=== PATIENT | female | born 1965 | race Caucasian/White ===

== ENCOUNTER → 2017-09-02 13:49 | Outpatient (CLI) | payer OTHER, SELFPAY ==
--- NOTE | 2017-09-02 13:52 | ECHOD_ITS ---
Version 2 Reason For Study: SOB Procedure This was a 2D Doppler, Color Flow transthoracic echocardiogram. Exam performed in department. Left Ventricle Normal LV size. Left ventricular systolic function is normal. The estimated ejection fraction is 55 %. No regional wall motion abnormalities noted. Right Ventricle Normal right ventricle. Normal systolic function. Atria Normal left atrium. Mobile mass of the left atrium. Mass measuring 0.4cm by 0.6cm. Normal right atrium. Mitral Valve Normal mitral valve. Mild (1+) eccentric mitral valve insufficiency. Pulmonic Valve Normal pulmonic valve. Great Vessels Normal aortic root. The pulmonary artery is normal size. Normal inferior vena cava. Pericardium/Pleural No pericardial effusion. MMode/2D Measurements & Calculations LVIDd: 3.6 cm IVSd: 0.98 cm Ao root diam: 2.8 cm LVIDs: 2.4 cm LVPWd: 1.1 cm LA dimension: 2.9 cm FS: 35.3 % LAV(MOD-sp4): 43.4 ml LA A4 area: 17.4 cm2 RA A4 area: 10.7 cm2 Doppler Measurements & Calculations MV E max dami: 91.3 cm/sec Ao V2 max: 180.0 cm/sec LV V1 max: 115.3 cm/sec MV A max dami: 52.8 cm/sec Ao max P.0 mmHg LV V1 max P.3 mmHg MV E/A: 1.7 TR max dami: 228.4 cm/sec TR max P.9 mmHg Interpretation Summary Normal LV size. Left ventricular systolic function is normal. The estimated ejection fraction is 55 %. Mobile mass in the left atrium. Mass measuring 0.4cm by 0.6cm Cannot exclude Libman Sacks lesion. Recommend [facility]I Ordering Physician: NIKKY EDWARDS Referring Physician: NIKKY EDWARDS Performed By: Bianka Garcia, DAE, RVT
--- NOTE | 2017-09-02 13:53 | RAD_ITS ---
STUDY: X-RAY CHEST REASON FOR EXAM: Female, 52 years old. Shortness of breath/dyspnea. TECHNIQUE: PA and lateral views of the chest. COMPARISON: None. FINDINGS: The lungs are clear and expanded. There is no demonstrated pleural abnormality. Normal size heart. Normal mediastinum and fan. Normal visualized pulmonary arteries. There is atherosclerotic calcification of the aortic arch with tortuosity. There are diffuse degenerative changes of the visualized thoracic spine. Normal visualized ribs, clavicles, and shoulders. There is no demonstrated abnormality of the visualized soft tissue structures of the upper abdomen. RAD/Chest PA and Lateral IMPRESSION: No acute abnormality is seen. Electronically Signed: Davin Prabhakar MD at 15:57 EST Tel [phone], Service support ,
== END ==
PROVIDERS: Family Provider Internal Medicine; PCP Internal Medicine; Visit Provider Internal Medicine Rheumatology
DX: R06.02 Shortness of breath (principal); M35.1 Other overlap syndromes
CPT/HCPCS: 71046; 93306

== ENCOUNTER → 2021-03-07 07:08 | Outpatient (CLI) | payer OTHER, SELFPAY ==
[2021-02-20 14:29] VITALS: BMI 33.7
--- NOTE | 2021-03-07 07:10 | ECHOCS_ITS ---
Reason For Study: DYSPNEA/SOB Procedure This was a 2D Doppler, Color Flow transthoracic echocardiogram. The study was technically difficult. Due to body habitus. Contrast injection was performed. Exam performed in department. Left Ventricle Normal LV size. Left ventricular systolic function is normal. The estimated ejection fraction is 65 %. No evidence for diastolic dysfunction. No regional wall motion abnormalities noted. Right Ventricle Normal RV size. Normal systolic function. Atria Normal left atrium. Normal right atrium. No doppler evidence for ASD. Mitral Valve There is no mitral annular calcification. Normal mitral valve. Mild (1+) mitral valve insufficiency. Tricuspid Valve Normal tricuspid valve. Trivial tricuspid valve insufficiency. Right ventricular systolic pressure estimated to be 18 mmHg. Aortic Valve Trisinus/trileaflet aortic valve. Mild focal aortic valve calcification. Trivial aortic valve insufficiency. Pulmonic Valve The pulmonic valve is not well visualized. Trivial pulmonic valve insufficiency. Great Vessels Normal sized aortic root. Pericardium/Pleural No pericardial effusion. Medication Diluted definity 3.0ml given slow IV push to enhance endocardial definition. MMode/2D Measurements & Calculations LVIDd: 4.2 cm IVSd: 0.90 cm Ao root diam: 3.2 cm LVIDs: 2.3 cm LVPWd: 1.1 cm RVDd: 2.8 cm FS: 45.9 % LAV(MOD-bp): 57.5 ml LVAd ap4: 23.9 cm2 LVAd ap2: 28.7 cm2 LAV(MOD-bp) Indexed: 28.4 ml/m2 LVLd ap4: 7.7 cm LVLd ap2: 8.4 cm LAV(MOD-sp2): 59.6 ml EDV(MOD-sp4): 62.5 ml EDV(MOD-sp2): 85.9 ml LAV(MOD-sp4): 53.3 ml EDV(sp4-el): 63.3 ml EDV(sp2-el): 83.6 ml LVAs ap4: 9.0 cm2 LVAs ap2: 14.5 cm2 LVLs ap4: 5.4 cm LVLs ap2: 7.0 cm ESV(MOD-sp4): 12.8 ml ESV(MOD-sp2): 26.6 ml ESV(sp4-el): 12.8 ml ESV(sp2-el): 25.7 ml EF(MOD-sp4): 79.5 % EF(MOD-sp2): 69.0 % EF(sp4-el): 79.7 % SV(MOD-sp4): 49.7 ml SV(MOD-sp2): 59.3 ml SV(sp4-el): 50.4 ml LA A4 area: 19.3 cm2 LA dimension(2D): 3.1 cm RA A4 area: 15.9 cm2 Time Measurements MV dec time: 0.20 sec Doppler Measurements & Calculations MV E max josé: 100.6 cm/sec Lat Peak E' José: 10.2 cm/sec Med Peak E' José: 11.6 cm/sec MV A max josé: 62.6 cm/sec E/E' lat: 9.9 E/E' med: 8.7 MV E/A: 1.6 Ao V2 max: 223.8 cm/sec AI max josé: 454.2 cm/sec LV V1 max: 114.5 cm/sec Ao max P.0 mmHg AI max P.5 mmHg LV V1 max P.3 mmHg Ao V2 mean: 159.7 cm/sec LV V1 mean P.3 mmHg Ao mean P.0 mmHg AI dec slope: 245.4 cm/sec2 LV V1 mean: 88.0 cm/sec Ao V2 VTI: 48.3 cm AI P1/2t: 542.1 msec LV V1 VTI: 27.2 cm PA V2 max: 85.4 cm/sec TR max josé: 192.9 cm/sec TR max P.9 mmHg ECHO/Echo Complete W/ Contrast Interpretation Summary The study was technically difficult. Contrast injection was performed. Left ventricular systolic function is normal. The estimated ejection fraction is 65 %. Mild (1+) mitral valve insufficiency. Trivial tricuspid valve insufficiency. Mild focal aortic valve calcification. Trivial aortic valve insufficiency. Trivial pulmonic valve insufficiency. Right ventricular systolic pressure estimated to be 18 mmHg. No evidence for diastolic dysfunction. Ordering Physician: Marv Jansen Referring Physician: Mary Cho Performed By: Annita Dutta, RDCS, RVT
--- NOTE | 2021-03-07 09:22 | STRESSREP_ITS ---
Stress Test Report Date: 03-07-2021 Procedure: Exercise tolerance test/imaging study Indications: Shortness of breath/dyspnea on exertion Consent: Per the patient Procedure: The patient exercised on a Chad protocol for 9 minutes completing Stage III achieving a peak heart rate of 166 bpm (100% predicted maximal heart rate) with a peak blood pressure 164/88 mmHg and a peak MET capacity of 10 METs. The baseline ECG demonstrated sinus rhythm. The peak exercise ECG demonstrated no obvious ECG changes. There were no cardiac dysrhythmias pretest, during exercise, or recovery. The functional capacity was considered good. There was no complaint of chest discomfort during exercise or recovery. The examination was discontinued secondary to dyspnea. Impression: 1. Technically adequate (percent predicted maximal heart rate greater than 85%) exercise tolerance test 2. Peak exercise ECG with no obvious ECG change 3. There were no cardiac dysrhythmias pretest, during exercise, or recovery 4. Nuclear images pending Myocardial perfusion imaging study: Technique: The patient was injected with 14.7 mCi of technetium 99m Cardiolite and subseque ntly rest SPECT Cardiolite nuclear imaging was obtained in the horizontal long, vertical long, and short axis views. The patient exercised on a Chad protocol for 9 minutes completing Stage III achieving a peak heart rate of 166 bpm (100% predicted maximal heart rate) with a peak blood pressure 164/88 mmHg and a peak MET capacity of 10 METs. The patient was injected with 44.4 mCi of technetium 99m Cardiolite and subsequently stress SPECT Cardiolite nuclear imaging was obtained in the horizontal long, vertical long, and short axis views. A gated Cardiolite study at peak stress was obtained. Interpretation: Rest and stress SPECT Cardiolite nuclear imaging status post realignment, normalization, and attenuation correction, demonstrates the appearance of relative uniform tracer uptake and myocardial perfusion appearing within normal limits. There is end systolic thickening and brightening. The gated Cardiolite study demonstrates myocardial thickening and inward wall motion. The reported LVEF is 76%. Impression: 1. Rest and stress SPECT Cardiolite nuclear imaging demonstrate relative uniform tracer uptake and myocardial perfusion appearing within normal limits. 2. The gated Cardiolite study reports an LVEF of 76%. This note was generated with [employer] software. It may contain incorrect words, spelling, and punctuation that were not noted in checking the note before signing.
== END ==
PROVIDERS: PCP Internal Medicine; Referring Provider Internal Medicine Cardiovascular Disease; Visit Provider Internal Medicine Cardiovascular Disease
DX: R06.02 Shortness of breath (principal); R01.1 Cardiac murmur, unspecified; R00.2 Palpitations; I10 Essential (primary) hypertension
CPT/HCPCS: 78452; 93017; 93306; A9500; Q9957; A4216; C8929; J3490

== ENCOUNTER → 2023-10-12 | Outpatient (CLI) | payer OTHER, SELFPAY ==
--- NOTE | 2023-10-12 16:30 | US_ITS ---
STUDY: RENAL ULTRASOUND - COMPLETE REASON FOR EXAM: Female, 58 years old. PROTEINURIA TECHNIQUE: Ultrasound evaluation of the kidneys was performed with real-time and static tripp-scale imaging. COMPARISON: None. FINDINGS: RIGHT KIDNEY: Normal location of the right kidney, which is normal in size. The right kidney measures 9.0 cm. There is a normal cortex of the right kidney. The renal cortex measures 1.5 cm. There is no right renal mass or cyst. There are no right renal calculi. There is no right hydronephrosis. DISTAL RIGHT URETER: There is non-visualization of the distal right ureter. There is no demonstrated right ureterovesical junction calculus. There is a visualized right ureteral jet. LEFT KIDNEY: Normal location of the left kidney, which is normal in size. The left kidney measures 10.3 cm. There is a normal cortex of the left kidney. The renal cortex measures 2.1 cm. There is no left renal mass or cyst. There are no left renal calculi. There is no left hydronephrosis. DISTAL LEFT URETER: There is non-visualization of the distal left ureter. There is no demonstrated left ureterovesical junction calculus. There is a visualized left ureteral jet. BLADDER: The distended urinary bladder has a volume of 30 ml. The empty urinary bladder has a volume of 4 ml. There is a normal wall thickness of the distended urinary bladder. There is no demonstrated mass within the urinary bladder. There are no demonstrated bladder calculi. US/Kidney and Bladder IMPRESSION: Normal ultrasound of the kidneys and urinary bladder. Electronically Signed: Ata Martinez MD at 23:55 EDT ,
--- OUTSIDE RECORDS SUMMARY | 2023-10-13 02:59 | XMS RPT_ITS | CCD ---
Author Name Unknown Address [address] [place] [address] Organization [facility] Care Team Providers Care Elder Assistant Name Role Phone Rogelio Thomas Unavailable ElysiaitAlexandre Unavailable Marilee Euceda Unavailable Unavailable Marilee Euceda Unavailable Unavailable Elliott Goins Unavailable Unavailable Elliott Goins Unavailable Unavailable Elliott Goins Unavailable Unavailable PROVIDER, UNKNOWN Unavailable Unavailable No, PCP Unavailable Unavailable Rogelio Thomas Primary Care Provider Alexandre Miles Unavailable Rogelio Thomas MD Primary Care Provider Alexandre Miles MD Unavailable Rogelio Thomas MD Primary Care Provider Alexandre Miles MD Unavailable Rogelio Thomas MD Primary Care Provider Waldo JOYNER, Martha Unavailable Susan Almaguer Unavailable Alexandre Miles MD Unavailable Rogelio Thomas MD Primary Care Provider Alexandre Miles MD Unavailable Rogelio Thomas MD Primary Care Provider Waldo JOYNER, Martha Unavailable Susan Almaguer Unavailable Richard JOYNER, Lisette Lee Unavailable Rogelio Thomas MD D Primary Care Provider Alexandre Miles MD Unavailable [phone] Richard JOYNER, Lisette Lee Unavailable Rogelio Thomas MD Primary Care Provider Waldo JOYNER, Martha Unavailable Susan Almaguer Unavailable Waldo JOYNER, Martha Unavailable Tripp BOYD, Susan John Unavailable Rebeca Cifuentes MD, Jack Jennifer Primary Care Provider [phone] [place] Attending Unavailable REBECA CIFUENTES, JACK Primary Care Unavailable Richard JOYNER, Lisette Lee Unavailable SYSTEM, PROVIDER NOT IN Referring Unavaila ble SYSTEM, PROVIDER NOT IN Attending Unavaila ble TALAMPAS, ROGELIO D Primary Care Unavailable SYSTEM, PROVIDER NOT IN Referring Unavaila ble TALAMPAS, ROGELIO D Primary Care Unavailable SYSTEM, PROVIDER NOT IN Attending Unavaila ble TALAMPAS, ROGELIO D Primary Care Unavailable SYSTEM, PROVIDER NOT IN Attending Unavaila ble SYSTEM, PROVIDER NOT IN Referring Unavaila ble SYSTEM, PROVIDER NOT IN Attending Unavaila ble TALAMPAS, ROGELIO D Primary Care Unavailable SYSTEM, PROVIDER NOT IN Referring Unavaila ble LUIS, JAMIR WHITNEY Attending Unavailabl e TALAMPAS, ROGELIO D Primary Care Unavailable ISIS NEVAREZ Attending Unavailable LISETTE RAMOS Admitting Unav ailable LISETTE RAMOS Referring Unav ailable TALAMPAS, ROGELIO D Primary Care Unavailable ERWIN LION Attending Unavailab le TALAMPAS, ROGELIO D Primary Care Unavailable JAMIR YING Attending Unavailabl e TALAMPAS, ROGELIO D Primary Care Unavailable GAIL HERBERT Attending Unavailable TALAMPAS, ROGELIO D Primary Care Unavailable TALAMPAS, ROGELIO D Referring Unavailable TALAMPAS, ROGELIO D Admitting Unavailable JAMIR YING Attending Unavailabl e TALAMPAS, ROGELIO D Primary Care Unavailable TALAMPAS, ROGELIO D Primary Care Unavailable LISETTE LANE Referring Unavailable TALAMPAS, ROGELIO D Primary Care Unavailable AVALOS, SHANAE Referring Unavailable TALAMPAS, ROGELIO D Primary Care Unavailable AVALOS, SHANAE Referring Unavailable TALAMPAS, ROGELIO D Primary Care Unavailable AVALOSLAQUITAI Attending Unavailable TALAMPAS, ROGELIO D Primary Care Unavailable LORI MEDINA Referring Unavailable TALAMPAS, ROGELIO D Primary Care Unavailable LORI MEDINA Attending Unavailable LISETTE L[address] Referring Unavailable TALAMPAS, ROGELIO D Primary Care Unavailable BROWNLISETTE Referring Unavailable TALAMPAS, ROGELIO D Primary Care Unavailable LISETTE L[address] Attending Unavailable BROWNLISETTE Referring Unavailable TALAMPAS, ROGELIO D Primary Care Unavailable TALAMPAS, ROGELIO D Primary Care Unavailable LISETTE LANE Referring Unavailable IGOE, GAIL FUENTES Referring Unavailable IGOE, GAIL FUENTES Attending Unavailable TALAMPAS, ROGELIO D Primary Care Unavailable TALAMPAS, ROGELIO D Primary Care Unavailable TALAMPAS, ROGELIO D Primary Care Unavailable TALAMPAS, ROGELIO D Primary Care Unavailable ERWIN LION Referring Unavailab le TALAMPAS, ROGELIO D Primary Care Unavailable TALAMPAS, ROGELIO D Primary Care Unavailable TALAMPAS, ROGELIO D Primary Care Unavailable IGOE, GAIL FUENTES Attending Unavailable IGOE, GAIL FUENTES Referring Unavailable TALAMPAS, ROGELIO D Primary Care Unavailable IGOE, GAIL FUENTES Attending Unavailable IGOE, GAIL FUENTES Referring Unavailable IGOE, GAIL FUENTES Attending Unavailable IGOE, GAIL FUENTES Referring Unavailable TALAMPAS, ROGELIO D Primary Care Unavailable IGOE, GAIL FUENTES Attending Unavailable IGOE, GAIL FUENTES Referring Unavailable TALAMPAS, ROGELIO D Primary Care Unavailable IGOE, GAIL FUENTES Attending Unavailable IGOE, GAIL FUENTES Referring Unavailable TALAMPAS, ROGELIO D Primary Care Unavailable Allergies Allergy Classification Reported Allergen(s) Allergy Type Date of Onset Reaction(s) Facility (1 source) Seasonal allergy; Translations: [SEASONAL ALLERGIES] Propensity to adverse reactions (disorder) 8 [facility] Medications Current Medications Medication Drug Class(es) Dates Sig (Normalized) Sig (Original) ascorbic acid 1000 mg oral tablet (20 sources) take 1 tablet by peter th once daily ascorbic acid, vitamin C, (VITAMIN C) 1000 MG tablet Take 1 (one) tablet (1,000 mg total) by mouth daily . 0 Active Completed/Discontinued Medications Medication Drug Class(es) Dates Sig (Normalized) Sig (Original) cholecalciferol 0.025 mg oral tablet (20 sources) Vitamin D Start: 01-26-2017 take 1 tablet by mouth once daily cholecalciferol (VITAMIN D3) 1,000 unit tab tablet Take 1 tablet by mouth once daily. 0 01/26/2017 Active Problems Active Problems Problem Classification Problem Date Documented Date Episodic/Chronic Conditions associated with dizziness or vertigo (2 sources) Dizziness; Translations: [Dizziness and giddiness] Episodic Diseases of white blood cells (20 sources) Leukopenia; Translations: [Decreased white blood cell count, unspecified] Onset: 01-18-2012 07-28-2021 Chronic Disorders of lipid metabolism (1 source) Hypercholesterolemia; Translations: [Pure hypercholesterolemia, unspecified] Chronic Esophageal disorders (20 sources) Gastroesophageal reflux disease; Translations: [Gastro-esophageal reflux disease without esophagitis] Onset: 03-10-2012 03-10-2012 Chronic Heart valve disorders (20 sources) Systolic murmur; Translations: [Cardiac murmur, unspecified] Onset: 12-22-2011 12-22-2011 Episodic Influenza (2 sources) Influenza; Translations: [History of lupus] Onset: 06-18-2017 06-18-2017 Malaise and fatigue (11 sources) Fatigue; Translations: [Other fatigue] Onset: 10-12-2022 Episodic Nonmalignant breast conditions (20 sources) Pain of breast; Translations: [Mastodynia] Onset: 06-18-2017 06-18-2017 Episodic Nutritional deficiencies (20 sources) Vitamin D deficiency; Translations: [Vitamin D deficiency, unspecified] Onset: 06-11-2016 06-11-2016 Chronic Other acquired deformities (1 source) Lumbar spondylolisthesis; Translations: [Spondylolisthesis, lumbar region] 07-08-2023 Episodic Other acquired deformities (2 sources) Spondylolisthesis, lumbar region; Translations: [Spondylolisthesis, lumbar region] Onset: 07-08-2023 Episodic Other and unspecified benign neoplasm (4 sources) Benign neoplasm of pituitary gland; Translations: [Benign neoplasm of pituitary gland] Onset: 12-09-2015 Episodic Other circulatory disease (20 sources) Raynaud's phenomenon; Translations: [Raynaud's syndrome without gangrene] 11-26-2013 Chronic Other circulatory disease (16 sources) Raynaud's disease; Translations: [Raynaud's syndrome without gangrene] Onset: 01-05-2022 01-05-2022 Chronic Other circulatory disease (4 sources) Raynaud's syndrome without gangrene; Translations: [Raynaud's syndrome without gangrene] Onset: 01-05-2022 Chronic Other connective tissue disease (3 sources) Romberg's sign positive; Translations: [Other symptoms and signs involving the nervous system] Episodic Other endocrine disorders (20 sources) Reactive hypoglycemia; Translations: [Other hypoglycemia] Onset: 11-26-2013 11-26-2013 Chronic Other eye disorders (20 sources) Vitreous opacities; Translations: [Other vitreous opacities, unspecified eye] Onset: 05-22-2014 05-22-2014 Chronic Other inflammatory condition of skin (20 sources) Lupus erythematosus; Translations: [Systemic lupus erythematosus, unspecified] Onset: 06-11-2016 06-11-2016 Chronic Other lower respiratory disease (1 source) Snoring; Translations: [Snoring] 11-23-2022 Episodic Other lower respiratory disease (1 source) Shortness of breath; Translations: [SOB (shortness of breath)] Onset: 08-30-2023 Episodic Other non-traumatic joint disorders (1 source) Pain in right knee; Translations: [Pain in joint, lower leg] Episodic Other non-traumatic joint disorders (1 source) Swollen ankle region; Translations: [Effusion, left ankle] 11-23-2022 Episodic Other nutritional; endocrine; and metabolic disorders (20 sources) Obese class I; Translations: [Obesity, unspecified] Onset: 06-27-2019 06-27-2019 Chronic Other nutritional; endocrine; and metabolic disorders (1 source) Obesity; Translations: [Other obesity due to excess calories] Chronic Other skin disorders (1 source) Dry skin dermatitis; Translations: [Xerosis cutis] Episodic Screening or history of mental health and substance abuse (2 sources) Finding of alcohol in blood; Translations: [Finding of alcohol in blood] Onset: 03-08-2018 Episodic Spondylosis; intervertebral disc disorders; other back problems (10 sources) Arthropathy of lumbar facet joint; Translations: [Spondylosis without myelopathy or radiculopathy, lumbar region] Chronic Systemic lupus erythematosus and connective tissue disorders (20 sources) Other overlap syndromes; Translations: [Systemic lupus erythematosus] Onset: 06-11-2016 07-29-2021 Chronic Unclassified (20 sources) History of immune disorder; Translations: [History of lupus] Onset: 06-18-2017 06-18-2017 Unclassified (2 sources) Consult Onset: 08-26-2023 Past or Other Problems Problem Classification Problem Date Documented Da te Episodic/Chronic Abdominal pain (2 sources) Lower abdominal pain; Translations: [Lower abdominal pain, unspecified] Onset: 12-24-2022 12-24-2022 Episodic Deficiency and other anemia (20 sources) Anemia; Translations: [Anemia, unspecified] Onset: 01-18-2012 06-11-2016 Episodic Esophageal disorders (20 sources) Esophagitis; Translations: [Esophagitis, unspecified] Onset: 03-10-2012 03-10-2012 Episodic Gastrointestinal hemorrhage (19 sources) Rectal hemorrhage; Translations: [Hemorrhage of anus and rectum] Onset: 11-17-2021 Episodic Genitourinary symptoms and ill-defined conditions (20 sources) Dysuria; Translations: [Dysuria] Onset: 12-13-2017 12-13-2017 Episodic Immunizations and screening for infectious disease (11 sources) Anti-nuclear factor positive; Translations: [Other specified abnormal immunological findings in serum] Onset: 11-23-2022 Episodic Neoplasms of unspecified nature or uncertain behavior (20 sources) Neoplasm of pituitary gland; Translations: [Neoplasm of unspecified behavior of endocrine glands and other parts of nervous system] Onset: 05-22-2014 05-22-2014 Episodic Other and unspecified benign neoplasm (20 sources) Pituitary macroadenoma; Translations: [Benign neoplasm of pituitary gland] Onset: 12-09-2015 12-09-2015 Episodic Other and unspecified benign neoplasm (20 sources) Pituitary adenoma; Translations: [Benign neoplasm of pituitary gland] Onset: 07-10-2013 07-28-2021 Episodic Other and unspecified benign neoplasm (17 sources) History of polyp of colon; Translations: [Personal history of colonic polyps] Onset: 11-17-2021 Episodic Other circulatory disease (20 sources) H/O: hypertension; Translations: [Personal history of other diseases of the circulatory system] Onset: 06-18-2017 06-18-2017 Episodic Other connective tissue disease (1 source) Pain in left lower leg; Translations: [Pain of left calf] Onset: 10-28-2022 Episodic Other gastrointestinal disorders (20 sources) Heartburn; Translations: [Heartburn] Onset: 03-10-2012 03-10-2012 Episodic Other lower respiratory disease (2 sources) Snoring; Translations: [Snoring] Onset: 11-23-2022 Episodic Other non-traumatic joint disorders (4 sources) Effusion, left ankle; Translations: [Effusion, left ankle] Onset: 11-23-2022 Episodic Other non-traumatic joint disorders (1 source) Pain in right hip; Translations: [Right hip pain] Onset: 12-17-2022 Episodic Other non-traumatic joint disorders (1 source) Pain in left knee; Translations: [Acute pain of left knee] Onset: 10-28-2022 Episodic Other non-traumatic joint disorders (1 source) Pain in left ankle and joints of left foot; Translations: [Acute left ankle pain] Onset: 10-28-2022 Episodic Other screening for suspected conditions (not mental disorders or infectious disease) (9 sources) Patient encounter status; Translations: [Encounter for screening for diabetes mellitus] Onset: 11-23-2022 Episodic Residual codes; unclassified (1 source) Localized edema; Translations: [Lower extremity edema] Onset: 10-28-2022 Episodic Spondylosis; intervertebral disc disorders; other back problems (9 sources) Chronic low back pain; Translations: [Low back pain] Onset: 12-17-2022 Episodic Unclassified (3 sources) H/O: Disorder; Translations: [History of lupus] Onset: 06-18-2017 06-18-2017 Episodic Results Test Name Value Interpretation Reference Range Facil ity Vital Signs Date Time Vital Sign Value Performing Clinician Facility 10-04-2023 15:13-0500 Body weight 96.[address] MD Work Phone: [facility] 10-04-2023 15:13-0500 Diastolic blood pressure 80 mm[Hg] Lisette Lane MD Work Phone: [facility] 10-04-2023 15:13-0500 Heart rate 78 /min Lisette Lane MD Work Phone: [facility] 10-04-2023 15:13-0500 Respiratory rate 16 /min Lisette Lane MD Work Phone: [facility] 10-04-2023 15:13-0500 SaO2% (BldA) [Mass fraction] 99 % Lisette Lane MD Work Phone: [facility] 10-04-2023 15:13-0500 Systolic blood pressure 136 mm[Hg] Lisette Lane MD Work Phone: [facility] 08-26-2023 15:15-0500 Body height 165.1 cm Isis Nevarez MD Work Phone: [facility] 08-26-2023 15:15-0500 Body mass index (BMI) [Ratio] 35.61 kg/m2 Isis Nevarez MD Work Phone: [facility] 08-26-2023 15:15-0500 Body weight 97.07 kg Isis Nevarez MD Work Phone: [facility] 08-26-2023 15:15-0500 Diastolic blood pressure 87 mm[Hg] Isis Nevarez MD Work Phone: [facility] 08-26-2023 15:15-0500 Heart rate 87 /min Isis Nevarez MD Work Phone: [facility] 08-26-2023 15:15-0500 Respiratory rate 14 /min Isis Nevarez MD Work Phone: [facility] 08-26-2023 15:15-0500 SaO2% (BldA) [Mass fraction] 99 % Isis Nevarez MD Work Phone: [facility] 08-26-2023 15:15-0500 Systolic blood pressure 142 mm[Hg] Isis Nevarez MD Work Phone: [facility] 08-12-2023 14:35-0500 Body mass index (BMI) [Ratio] 34.15 kg/m2 Jamir Ying DO Work Phone: [facility] 08-12-2023 14:35-0500 Body weight 95.98 kg Jamir Falls DO Work Phone: [facility] 08-12-2023 14:35-0500 Diastolic blood pressure 89 mm[Hg] Jamir Falls DO Work Phone: [facility] 08-12-2023 14:35-0500 Heart rate 91 /min Jamir Falls DO Work Phone: [facility] 08-12-2023 14:35-0500 Systolic blood pressure 146 mm[Hg] Jamir Falls DO Work Phone: [facility] 07-08-2023 14:56-0500 Body weight 97.07 kg Louis Okeefe MD Work Phone: [facility] 07-08-2023 14:56-0500 Diastolic blood pressure 84 mm[Hg] Luois Okeefe MD Work Phone: [facility] 07-08-2023 14:56-0500 Heart rate 81 /min Louis Okeefe MD Work Phone: [facility] 07-08-2023 14:56-0500 Systolic blood pressure 125 mm[Hg] Louis Okeefe MD Work Phone: [facility] 11-23-2022 13:54-0400 Body mass index (BMI) [Ratio] 33.89 kg/m2 Gail Herbert MD Work Phone: [facility] 11-23-2022 13:54-0400 Body weight 95.25 kg Gail Herbert MD Work Phone: [facility] 11-23-2022 13:54-0400 Diastolic blood pressure 89 mm[Hg] Gail Herbert MD Work Phone: [facility] 11-23-2022 13:54-0400 Heart rate 87 /min Gail Herbert MD Work Phone: [facility] 11-23-2022 13:54-0400 Systolic blood pressure 142 mm[Hg] Gail Herbert MD Work Phone: [facility] 10-12-2022 15:01-0400 Diastolic blood pressure 85 mm[Hg] Erwin Lion LOOM SETTER Work Phone: [facility] 10-12-2022 15:01-0400 Heart rate 79 /min rEwin Lion LOOM SETTER Work Phone: [facility] 10-12-2022 15:01-0400 Systolic blood pressure 134 mm[Hg] Erwin Lion LOOM SETTER Work Phone: [facility] 10-12-2022 14:58-0400 Body mass index (BMI) [Ratio] 34.46 kg/m2 Erwin Lion LOOM SETTER Work Phone: [facility] 10-12-2022 14:58-0400 Body weight 96.84 kg Erwin Lion LOOM SETTER Work Phone: [facility] 08-24-2022 16:10-0500 Body temperature 96.4 [degF] Rogelio Thomas MD Work Phone: [facility] 08-24-2022 16:10-0500 Body weight 92.53 kg Rogelio Thomas MD Work Phone: [facility] 08-24-2022 16:10-0500 Diastolic blood pressure 86 mm[Hg] Rogelio Thomas MD Work Phone: [facility] 08-24-2022 16:10-0500 Heart rate 78 /min Rogelio Thomas MD Work Phone: [facility] 08-24-2022 16:10-0500 Respiratory rate 18 /min Rogelio Thomas MD Work Phone: [facility] 08-24-2022 16:10-0500 SaO2% (BldA) [Mass fraction] 100 % Rogelio Thomas MD Work Phone: [facility] 08-24-2022 16:10-0500 Systolic blood pressure 136 mm[Hg] Rogelio Thomas MD Work Phone: [facility] 06-30-2022 09:17-0500 Body mass index (BMI) [Ratio] 33.98 kg/m2 Isis Nevarez MD Work Phone: [facility] 06-30-2022 09:17-0500 Body weight 95.48 kg Isis Nevarez MD Work Phone: [facility] 06-30-2022 09:17-0500 Diastolic blood pressure 82 mm[Hg] Isis Nevarez MD Work Phone: [facility] 06-30-2022 09:17-0500 Heart rate 75 /min Isis Nevarez MD Work Phone: [facility] 06-30-2022 09:17-0500 Respiratory rate 16 /min Isis Nevarez MD Work Phone: [facility] 06-30-2022 09:17-0500 SaO2% (BldA) [Mass fraction] 95 % Isis Nevarez MD Work Phone: [facility] 06-30-2022 09:17-0500 Systolic blood pressure 126 mm[Hg] Isis Nevarez MD Work Phone: [facility] 04-09-2022 09:56-0400 Body height 167.6 cm Erwin Lion LOOM SETTER Work Phone: [facility] 04-09-2022 09:56-0400 Body mass index (BMI) [Ratio] 32.38 kg/m2 Erwin Lion LOOM SETTER Work Phone: [facility] 04-09-2022 09:56-0400 Body weight 90.99 kg Erwin Lion LOOM SETTER Work Phone: [facility] 04-09-2022 09:56-0400 Diastolic blood pressure 86 mm[Hg] Erwin Lion LOOM SETTER Work Phone: [facility] 04-09-2022 09:56-0400 Heart rate 72 /min Erwin Lion LOOM SETTER Work Phone: [facility] 04-09-2022 09:56-0400 Systolic blood pressure 135 mm[Hg] Erwin Lion LOOM SETTER Work Phone: [facility] 01-22-2022 14:07-0400 Diastolic blood pressure 86 mm[Hg] Susan Almaguer PA-C Work Phone: [facility] 01-22-2022 14:07-0400 Heart rate 77 /min Susan Tripp PA-C Work Phone: [facility] 01-22-2022 14:07-0400 SaO2% (BldA) [Mass fraction] 98 % Susan Tripp PA-C Work Phone: [facility] 01-22-2022 14:07-0400 Systolic blood pressure 124 mm[Hg] Susan Tripp PA-C Work Phone: [facility] 01-07-2022 16:23-0400 Body weight 87.54 kg Suzy Older HEAD OF RESEARCH [employer] INSIGHTS.LOOM SETTER Work Phone: [facility] 01-07-2022 16:23-0400 Diastolic blood pressure 84 mm[Hg] Suzy Older HEAD OF RESEARCH & INSIGHTS.LOOM SETTER Work Phone: [facility] 01-07-2022 16:23-0400 Heart rate 84 /min Suzy Older HEAD OF RESEARCH & INSIGHTS.LOOM SETTER Work Phone: [facility] 01-07-2022 16:23-0400 Respiratory rate 16 /min Suzy Older HEAD OF RESEARCH [employer] INSIGHTS.LOOM SETTER Work Phone: [facility] 01-07-2022 16:23-0400 Systolic blood pressure 114 mm[Hg] Suzy Older HEAD OF RESEARCH & INSIGHTS.LOOM SETTER Work Phone: [facility] 11-17-2021 13:08-0400 Body height 167.6 cm Isis Nevarez MD Work Phone: [facility] 11-17-2021 13:08-0400 Body mass index (BMI) [Ratio] 31.67 kg/m2 Isis Nevarez MD Work Phone: [facility] 11-17-2021 13:08-0400 Body weight 89 kg Isis Nevarez MD Work Phone: [facility] 11-17-2021 13:08-0400 Diastolic blood pressure 88 mm[Hg] Isis Nevarez MD Work Phone: [facility] 11-17-2021 13:08-0400 Heart rate 78 /min Isis Nevarez MD Work Phone: [facility] 11-17-2021 13:08-0400 SaO2% (BldA) [Mass fraction] 99 % Isis Nevarez MD Work Phone: [facility] 11-17-2021 13:08-0400 Systolic blood pressure 138 mm[Hg] Isis Nevarez MD Work Phone: [facility] 04-03-2021 13:57-0400 Diastolic blood pressure 81 mm[Hg] Susan Villarrealler PA-C Work Phone: [facility] 04-03-2021 13:57-0400 Heart rate 91 /min Susan Almaguer PA-C Work Phone: [facility] 04-03-2021 13:57-0400 Respiratory rate 16 /min Susan Almaguer PA-C Work Phone: [facility] 04-03-2021 13:57-0400 SaO2% (BldA) [Mass fraction] 99 % Susan Almaguer PA-C Work Phone: [facility] 04-03-2021 13:57-0400 Systolic blood pressure 122 mm[Hg] Susan Almaguer PA-C Work Phone: [facility] 01-03-2021 14:03-0400 Body height 167.6 cm Susan Almaguer PA-C Work Phone: [facility] 01-03-2021 14:03-0400 Body mass index (BMI) [Ratio] 33.09 kg/m2 Susan Almaguer PA-C Work Phone: [facility] 01-03-2021 14:03-0400 Body weight 92.99 kg Susan Almaguer PA-C Work Phone: [facility] 01-03-2021 14:03-0400 Diastolic blood pressure 88 mm[Hg] Susan Almaguer PA-C Work Phone: [facility] 01-03-2021 14:03-0400 Heart rate 83 /min Susan Almaguer PA-C Work Phone: [facility] 01-03-2021 14:03-0400 Respiratory rate 16 /min Susan Almaguer PA-C Work Phone: [facility] 01-03-2021 14:03-0400 SaO2% (BldA) [Mass fraction] 98 % Susan Almaguer PA-C Work Phone: [facility] 01-03-2021 14:03-0400 Systolic blood pressure 131 mm[Hg] Susan Almaguer PA-C Work Phone: [facility] 11-18-2020 11:21-0400 Diastolic blood pressure 83 mm[Hg] Susan Almaguer PA-C Work Phone: [facility] 11-18-2020 11:21-0400 Heart rate 100 /min Susan Almaguer PA-C Work Phone: [facility] 11-18-2020 11:21-0400 Respiratory rate 16 /min Susan Almaguer PA-C Work Phone: [facility] 11-18-2020 11:21-0400 SaO2% (BldA) [Mass fraction] 93 % Susan Almaguer PA-C Work Phone: [facility] 11-18-2020 11:21-0400 Systolic blood pressure 138 mm[Hg] Susan Almaguer PA-C Work Phone: [facility] 12-13-2017 15:59-0400 BMI (Body Mass Index) 32.44 kg/m2 Marilee Euceda [facility] 12-13-2017 15:59-0400 BP Diastolic 80 mm[Hg] Marilee Euceda [facility] 12-13-2017 15:59-0400 BP Systolic 140 mm[Hg] Marilee Euceda [facility] 12-13-2017 15:59-0400 Height 167.6 cm Marilee Euceda [facility] 12-13-2017 15:59-0400 Pulse (Heart Rate) 76 /min Marilee Euceda [facility] 12-13-2017 15:59-0400 Weight 91.17 kg Marilee Euceda [facility] 06-18-2017 15:52-0500 BMI (Body Mass Index) 31.46 kg/m2 Jesus Mayer [facility] Work Phone: 06-18-2017 15:52-0500 Body Temperature 98.71 [degF] Jesus Mayer [facility] Work Phone: 06-18-2017 15:52-0500 BP Diastolic 95 mm[Hg] Jesus Mayer [facility] Work Phone: 06-18-2017 15:52-0500 BP Systolic 140 mm[Hg] Jesus Mayer [facility] Work Phone: 06-18-2017 15:52-0500 Pulse (Heart Rate) 74 /min Jesus Mayer [facility] Work Phone: 06-18-2017 15:52-0500 Pulse Oximetry 96 % Jesus Mayer [facility] Work Phone: 06-18-2017 15:52-0500 Respiratory Rate 14 /min Jesus Mayer [facility] Work Phone: 06-18-2017 15:52-0500 Weight 88.41 kg Jesus Mayer [facility] Work Phone: 06-14-2017 15:58-0500 BMI (Body Mass Index) 31.44 kg/m2 Marilee Euceda [facility] Work Phone: 06-14-2017 15:58-0500 BP Diastolic 72 mm[Hg] Marilee Euceda [facility] Work Phone: 06-14-2017 15:58-0500 BP Systolic 132 mm[Hg] Marilee Euceda [facility] Work Phone: 06-14-2017 15:58-0500 Pulse (Heart Rate) 80 /min Marilee Euceda [facility] Work Phone: 06-14-2017 15:58-0500 Weight 88.36 kg Marilee Euceda [facility] Work Phone: Encounters Encounter Date Encounter Type Care Provider Facility Start: 10-07-2023 End: 10-11-2023 ambulatory [facility] Start: 10-04-2023 End: 10-05-[address] Facility:[facility] Start: 10-04-2023 End: 10-04-[address] Facility:[facility] Start: 10-04-2023 End: 10-04-2023 Patient [address] Lisette Lane MD Work Phone: Pulmonary Medicine Procedures Date Procedure Procedure Detail Performing Clinician Start: 08-12-2023 Protein total xcpt refractometry urine Jamir Ying DO Work Phone: Start: 12-24-2022 Us abdominal real ti me w/image limited Shanae Avalos HEAD OF RESEARCH & INSIGHTS.[facility]ATHE W[facility]ER Work Phone: Start: 06-17-2022 Mammography Isis Nevarez MD Work Phone: Start: 06-09-2022 Mammography Lisette Ramos MD Work Phone: Start: 06-09-2022 Microscopic observat ion [Identifier] in Cervix by Cyto stain Erwin Lion LOOM SETTER Work Phone: Start: 01-10-2022 Lipid 1996 panel - S fernanda or Plasma Rogelio Thomas MD Work Phone: Start: 01-05-2022 Colonoscopy Rogelio scales MD Work Phone: Start: 01-10-2021 Adult depression scr eening assessment Rogelio Thomas MD Work Phone: Start: 01-03-2021 Magnetic resonance imaging External Transcribed Start: 05-03-2020 Mammography Susan hwang PA-C Work Phone: Start: 05-17-2019 Microscopic observat ion [Identifier] in Cervix by Cyto stain Susan Almaguer PA-C Work Phone: Start: 05-01-2019 Mammography Sobia Royal nadeenleilani Start: 05-14-2014 Colonoscopy Rogelio scales MD Work Phone: Plan of Treatment Date Care Activity Detail Author Start: 06-30-2028 Pap Testing Pap Testing [facility] Start: 06-30-2028 Screening for malignant neoplasm of cervix Pap Testing [facility] Start: 06-09-2027 HPV TESTING HPV TESTING [facility] Start: 06-09-2027 PAP TESTING PAP TESTING [facility] Start: 06-09-2027 Screening for malignant neoplasm of cervix HPV Testing [facility] Start: 01-10-2027 Lipid 1996 panel - Serum or Plasma Lipid Screening [facility] Start: 01-10-2027 Lipid panel Lipid Screening [facility] Start: 01-10-2027 LIPID SCREEN LIPID SCREEN [facility] Start: 01-05-2027 Colonoscopy COLONOSCOPY [facility] Start: 01-05-2027 COLORECTAL CANCER SCREENING COLORECTAL CANCER SCREENING [facility] Start: 01-05-2027 Screening for malignant neoplasm of colon [facility] Start: 10-11-2025 LIPID SCREEN LIPID SCREEN [facility] Start: 10-02-2025 Diabetes Screening Diabetes Screening [facility] Start: 06-09-2025 Screening for malignant neoplasm of cervix Pap Smear [facility] Start: 04-18-2025 DIABETES SCREEN DIABETES SCREEN [facility] Start: 04-18-2025 Diabetes Screening Diabetes Screening [facility] Start: 2025 RSV Immunization aged 60 or older (1 - 1-dose 60+ series) RSV Immunization aged 60 or older (1 - 1-dose 60+ series) [facility] Start: 01-10-2025 DIABETES SCREEN DIABETES SCREEN [facility] Start: 06-30-2024 Mammography Mammogram Screening [facility] Start: 06-30-2024 Screening for malignant neoplasm of breast Mammogram Screening [facility] Start: 05-14-2024 Colonoscopy COLONOSCOPY [facility] Start: 05-14-2024 COLORECTAL CANCER SCREENING COLORECTAL CANCER SCREENING [facility] Start: 11-11-2023 End: 11-11-2023 Patient encounter procedure 11/11/2023 3:30 PM EDT Office Visit [facility] [address] [place] [address] Jamir Ying, [address] [address] [facility] Start: 10-18-2023 End: 10-18-2023 Patient encounter procedure [facility] Start: 10-04-2023 End: 01-03-2024 Extractable nuclear Ab panel - Serum [facility] Work Phone: Payers Date Payer Category Payer Unknown [id number] 2. [id number] 2014 Unknown 2014 Unknown [id number] 1. [id number] 1965 Unknown [id number] 2.16. [id number] 1965 Unknown [id number] 2.16. 840.1.910003.3.579.2.900 1965 Unknown [id number] 2.16. 840.1.889104.3.579.2.900 1965 Unknown [id number] 2.16. 840.1.981901.3.579.2.900 1965 Unknown [id number] 2.16. 840.1.642206.3.579.2.900 1965 Unknown [id number] 2.16. 840.1.219995.3.579.2.900 1965 Unknown [id number] 2.16. 840.1.483621.3.579.2.900 1965 Unknown [id number] 2.16. 840.1.983935.3.579.2.900 1965 Unknown [id number] 2.16. 840.1.147360.3.579.2.903 1965 Unknown [id number] 2.16. 840.1.899793.3.579.2.903 1965 Unknown [id number] 2.16. 840.1.874694.3.579.2. 1965 Unknown [id number] 2.16. 840.1.065872.3.579.2. 1965 Unknown [id number] 2.16. 840.1.033286.3.579.2. 1965 Unknown [id number] 2.16. 840.1.733722.3.579.2. 1965 Unknown [id number] 2.16. 840.1.786797.3.579.2. 1965 Unknown [id number] 2.16. 840.1.235991.3.579.2 1965 Unknown [id number] 2.16. 840.1.297501.3.579.2. 1965 Unknown [id number] 2.16 840.1.817143.3.579.2. 1965 Unknown [id number] 2.16. 840.1.889948.3.579.2. 1965 Unknown [id number] 2.16. 840.1.536535.3.579.2. 1965 Unknown [id number] 2.16. 840.1.649218.3.579.2. 1965 Unknown [id number] 2.16. 840.1.790528.3.579.2. 1965 Unknown [id number] 2.16. 840.1.249626.3.579.2. 1965 Unknown [id number] 2.16. 840.1.792183.3.579.2. 1965 Unknown [id number] 2.16. 840.1.862293.3.579.2.3 Social History Date Type Detail Facility Start: 05-22-2014 End: 12-13-2017 Tobacco smoking status NHIS Never smoker [facility] Work Phone: Start: 1965 Sex Assigned At Not on file [facility] Work Phone: Start: 05-22-2014 End: 06-20-2018 Tobacco use and exposure Never used [facility] Start: 11-18-2020 End: 08-26-2023 Alcohol intake Lifetime non-drinker (finding) [facility] Start: 11-18-2020 History SDOH Alcohol Frequency 1 [facility] Start: 11-07-2021 End: 11-23-2022 Exposure to SARS-CoV-2 (event) Not sure [facility] Start: 01-10-2021 End: 10-04-2023 Alcohol intake Current non-drinker of alcohol (finding) [facility] Start: 01-05-2022 End: 12-17-2022 Cigarette pack-years [facility] Start: 03-09-2022 End: 03-19-2022 Exposure to SARS-CoV-2 (event) Unable to assess [facility] Start: 11-18-2020 End: 12-17-2022 Alcohol Use Disorder Identification Test - Consumption [AUDIT-C] [facility] How often to you hav e a drink containing alcohol? Never [facility] Average Number of Drinks Not on file [facility] Work Phone: Start: 11-17-2021 Gender identity Identifies as female gender (finding) [facility] Start: 11-17-2021 Sexual orientation Heterosexual (finding) [facility] Start: 07-08-2023 Alcohol intake Ex-drinker (finding) [facility] Medical Equipment Procedure Code Equipment Code Equipment Origin al Text Equipment Identifier Dates Check blood suga r daily as needed for reactive hypoglycemic symptoms 251.2 [id number] Start: 06-24-2013 End: 11-18-2020 Clinical Notes 11-18-2020 to 10-04-[address] MD - 10/04/2023 3:15 PM ESTTelephone Encounter - Valentine Paredes RN - 09/23/2023 4:06 PM Isis Christianson MD - 08/26/2023 3:13 PM ESTPatient Instructions Note Date & Type Note Facility 10-04-2023 Note HNO ID: [id number] Author: LISETTE LANE MD Service: ? Author Type: Physician Type: Progress Notes Filed: 10/04/2023 17:27 Note Text: . [facility] Note Patient name: Aminata Cohen PCP: Rogelio Thomas MD Referring Physician: Same Consultation requested by Dr. Thomas for an opinion regarding abnormal antibodies. My final recommendations will be communicated back to the requesting physician by way of shared Medical record or letter to requesting physician via [place] mail. CC: Referral stated shortness of breath but patient denies HPI: Aminata Cohen 58 year old obese female never smoker with PMH significant for Raynaud's, MCTD/SLE, GERD, HTN, migraines, pituitary adenoma being referred for evaluation of abnormal centromere antibody. Patient denies any prior respiratory issues. She specifically denies any shortness of breath, chronic dry cough, wheezing, recurrent infections. She had previous testing performed by rheumatology but has not seen a security specialist. Her pulmonary function tests were normal and updated pulmonary function test today are normal as well. She had a previous CTA of the chest that did not show any evidence of pulmonary fibrosis, and echocardiogram was negative for pulmonary hypertension. She has multiple positive antibodies including centromere, SHIVANI, SSA, RNA polymerase III,and a weak positive anti-OJ. She has mild proteinuria but normal complements. On physical exam she has no evidence of sclerodactyly or skin thickening but she does have mechanics hands. Her oral aperture is normal and I do not appreciate any telangiectasias. She denies any history of dysphagia although she does have GERD controlled with proton pump inhibitor. Only joint pain is bilateral knee pain which improved when she started on Plaquenil. DATA: PFT 08/2023: Review of pulmonary function test shows no obstruction, restriction or diffusion defect Labs: Component Ref Range AND Units 1 mo ago Anti-DNA ds <1:10 Titer <1:10 Component Ref Range AND Units 1 mo ago CRP(Inflammation) <=10.0 mg/L 4.3 Component Ref Range AND Units 10 mo ago SHIVANI Pattern (none) Centromere Abnormal SHIVANI <1:80 >1:320 High Component Ref Range AND Units 10 mo ago Centromere AB, IgG,S <1.0 (Negative) U >8.0 High Component Ref Range AND Units 10 mo ago RNA Polymerase III Ab, IgG, S <20.0 (Negative) U 46.0 High Component Ref Range AND Units 10 mo ago Sed Rate 0 - 30 mm/hr 36 High Component Ref Range AND Units 10 mo ago C3 Complement 73.0 - 183.0 mg/dL 125.2 Component Ref Range AND Units 10 mo ago C4 Complement 16.0 - 47.0 mg/dL 29.8 Anti--OJ Ab Negative Weak Positive Abnormal Imaging / Diagnostic Studies: Brian Cevallos, DO - 01/20/2023 EXAMINATION: CT CHEST HIGH RESOLUTION WITHOUT CONTRAST WITH COMPLETE SCAN HISTORY: ORDERING SYSTEM PROVIDED HISTORY: assess for ILD. patient has h/o MCTD/SLE, ORDERING SYSTEM PROVIDED DIAGNOSIS CODES: M32.9 Lupus (HCC) R76.8 Centromere antibody positive COMPARISON: None. TECHNIQUE: Dose reduction techniques were achieved by using automated exposure control and/or adjustment of mA and/or kV according to patient size and/or use of iterative reconstruction technique. Contiguous 2.5 mm thick axial sections are also viewed in the coronal and sagittal planes. Prone high-resolution studies are acquired in inspiration and expiration utilizing 1.25 mm thick sections. FINDINGS: There is normal size and configuration of the cardiac chambers, with normal size mediastinal great vessels and pulmonary arteries. Some minimal atherosclerotic calcification at the aortic arch noted without significant coronary artery calcifications. There are no signs of enlarged mediastinal or hilar region lymph nodes. The included supraclavicular, axillary lymph nodes, included chest wall soft tissues are satisfactory. The included upper abdominal structures are satisfactory. The thoracic spine and sternal structures are intact. Clear central tracheobronchial tree markings. There are no signs of interlobular septal thickening, or macroscopic fibrosis identified on the studies. There are no airspace opacities or suspicious pulmonary nodules. There does not appear to be evidence of pleural fluid. Visible tracheobronchial tree structures in the lung periphery on the high-resolution views are normal. There are no signs of air trapping or airway collapse on the expiratory views. IMPRESSION: CT scans of the chest show no evidence of interstitial lung disease or other fibrosis. No pleural fluid or pleural thickening identified. No mediastinal mass or adenopathy. There are no signs of air trapping on the expiratory views. Minimal atherosclerotic calcification aortic arch. Echo: Name: AMINATA COHEN Age: 57 years : 1965 Gender: Fe (more content not included)... [facility] 10-04-2023 History of Present illness Narrative Images from the original note were not included. . [facility] Note Patient name: Aminata Cohen PCP: Rogelio Thomas MD Referring Physician: Same Consultation requested by Dr. Thomas for an opinion regarding abnormal antibodies. My final recommendations will be communicated back to the requesting physician by way of shared Medical record or letter to requesting physician via [place] mail. CC: Referral stated shortness of breath but patient denies HPI: Aminata Cohen 58 year old obese female never smoker with PMH significant for Raynaud's, MCTD/SLE, GERD, HTN, migraines, pituitary adenoma being referred for evaluation of abnormal centromere antibody. Patient denies any prior respiratory issues. She specifically denies any shortness of breath, chronic dry cough, wheezing, recurrent infections. She had previous testing performed by rheumatology but has not seen a security specialist. Her pulmonary function tests were normal and updated pulmonary function test today are normal as well. She had a previous CTA of the chest that did not show any evidence of pulmonary fibrosis, and echocardiogram was negative for pulmonary hypertension. She has multiple positive antibodies including centromere, SHIVANI, SSA, RNA polymerase III, and a weak positive anti-OJ. She has mild proteinuria but normal complements. On physical exam she has no evidence of sclerodactyly or skin thickening but she does have mechanics hands. Her oral aperture is normal and I do not appreciate any telangiectasias. She denies any history of dysphagia although she does have GERD controlled with proton pump inhibitor. Only joint pain is bilateral knee pain which improved when she started on Plaquenil. DATA: PFT 08/2023: Review of pulmonary function test shows no obstruction, restriction or diffusion defect Labs: Component Ref Range & Units 1 mo ago Anti-DNA ds <1:10 Titer <1:10 Component Ref Range & Units 1 mo ago CRP(Inflammation) <=10.0 mg/L 4.3 Component Ref Range & Units 10 mo ago SHIVANI Pattern (none) Centromere Abnormal SHIVANI <1:80 >1:320 High Component Ref Range & Units 10 mo ago Centromere AB, IgG,S <1.0 (Negative) U >8.0 High Component Ref Range & Units 10 mo ago RNA Polymerase III Ab, IgG, S <20.0 (Negative) U 46.0 High Component Ref Range & Units 10 mo ago Sed Rate 0 - 30 mm/hr 36 High Component Ref Range & Units 10 mo ago C3 Complement 73.0 - 183.0 mg/dL 125.2 Component Ref Range & Units 10 mo ago C4 Complement 16.0 - 47.0 mg/dL 29.8 Anti--OJ Ab Negative Weak Positive Abnormal Imaging / Diagnostic Studies: Brian Cevallos, DO - 01/20/2023 EXAMINATION: CT CHEST HIGH RESOLUTION WITHOUT CONTRAST WITH COMPLETE SCAN HISTORY: ORDERING SYSTEM PROVIDED HISTORY: assess for ILD. patient has h/o MCTD/SLE, ORDERING SYSTEM PROVIDED DIAGNOSIS CODES: M32.9 Lupus (HCC) R76.8 Centromere antibody positive COMPARISON: None. TECHNIQUE: Dose reduction techniques were achieved by using automated exposure control and/or adjustment of mA and/or kV according to patient size and/or use of iterative reconstruction technique. Contiguous 2.5 mm thick axial sections are also viewed in the coronal and sagittal planes. Prone high-resolution studies are acquired in inspiration and expiration utilizing 1.25 mm thick sections. FINDINGS: There is normal size and configuration of the cardiac chambers, with normal size mediastinal great vessels and pulmonary arteries. Some minimal atherosclerotic calcification at the aortic arch noted without significant coronary artery calcifications. There are no signs of enlarged mediastinal or hilar region lymph nodes. The included supraclavicular, axillary lymph nodes, included chest wall soft tissues are satisfactory. The included upper abdominal structures are satisfactory. The thoracic spine and sternal structures are intact. Clear central tracheobronchial tree markings. There are no signs of interlobular septal thickening, or macroscopic fibrosis identified on the studies. There are no airspace opacities or suspicious pulmonary nodules. There does not appear to be evidence of pleural fluid. Visible tracheobronchial tree structures in the lung periphery on the high-resolution views are normal. There are no signs of air trapping or airway collapse on the expiratory views. IMPRESSION: CT scans of the chest show no evidence of interstitial lung disease or other fibrosis. No pleural fluid or pleural thickening identified. No mediastinal mass or adenopathy. There are no signs of air trapping on the expiratory views. Minimal atherosclerotic calcification aortic arch. Echo: Name: AMINATA COHEN Age: 57 years : 1965 Gender: Female Ht: 168 cm Wt: 95 kg BSA: 2.14 m2 HR: 60 bpm BP: 115 / 67 mmHg Heart Rhythm: Sinus Rhythm Technical Quality: Technically difficult Exam Date: 01/18/2023 7:27 AM Patient Status: Outpatient Summary 1. Left ventricular chamber dimension is normal. 2. Left ventricular systolic function is normal with an ejection fraction by Biplane Method of Discs of 62 %. 3. The left ventricular diastolic function is normal. 4. There is mild aortic valve regurgitation. PAST MEDICAL HISTORY Diagnosis Date Anemia Arthritis GERD (gastroesophageal reflux disease) Hypertension Leukopenia Lupus (systemic lupus erythematosus) ([facility] diagnosed by Dr. Silverio Migraine headache without aura Neutropenia ([facility]) Pituitary adenoma ([facility]) Raynaud's phenomenon ALLERGIES Allergen Reactions Seasonal Allergies Unknown omeprazole (PRILOSEC) 40 mg capsule Take 1 capsule by mouth once daily. famotidine (PEPCID) 20 mg tablet Take 1 tablet by mouth at bedtime as needed (for reflux and abdominal pain). hydrOXYchloroQUINE (PLAQUENIL) 200 mg tablet Take 2 tablets by mouth once daily. NIFEdipine ER (PROCARDIA XL) 30 mg 24 hr tablet Take 1 tablet by mouth once daily. as directed desloratadine (CLARINEX) 5 mg tablet Take 1 tablet by mouth once daily. cholecalciferol (VITAMIN D3) 1,000 unit tab tablet Take 1 tablet by mouth once daily. naproxen sodium (ALEVE) 220 mg tablet Take 2 tablets by mouth daily with breakfast. 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 Pets: None FAMILY HISTORY Problem Relation Age of Onset Diabetes Mother Hypertension Mother other (thalassemia minor trait) Mother other (Colon Polyps removed) Mother Prostate Cancer Father Diabetes Father Hypertension Father Hyperlipidemia Father Colon Cancer Maternal Aunt No Ocular Disease Maternal Aunt Hypertension Sister Hypertension Brother Stroke Maternal Grandfather Hypertension Sister No family history of autoimmune disorder PAST SURGICAL HISTORY Procedure Laterality Date BREAST CYST LEFT, FLUID 1988 ESOPHAGOGASTRODUODENOSCOPY TRANSORAL DIAGNOSTIC 03/10/2012 EGD PAST SURGICAL HISTORY OF 08/08/2010 EGD PAST SURGICAL HISTORY OF 1987 Removal of Benign Left breast lump PMH, Social history, family history and surgical history reviewed and updated in EMR REVIEW OF SYSTEMS: CONSTITUTIONAL: No fevers, chills, nightsweats, unintended weight loss HEENT: Denies nasal congestion/sinus symptoms, nasal crusting or epistaxis EYES: No diplopia or blurry vision, or dry eyes CARDIOVASCULAR: No chest pain, dyspnea, palpitations, orthopnea, PND. Some edema. PULM: See HPI GI: No dysphagia/odynophagia, problematic reflux, constipation, diarrhea, changes in stool habits : No urinary complaints, including dysuria, gross hematuria or pyuria. NEURO: No balance problems, peripheral weakness/paresthesias or numbness of concern. MUSC-SKEL: No current joint pain, swelling, or erythema. PSY: No concerns regarding depression, anxiety INTEGUMENTARY: Small areas of eczema on upper extremities and mechanics hands PHYSICAL EXAMINATION: BP 136/80 Pulse 78 Resp 16 Wt 212 lb (96.2kg) SpO2 99% LMP 07/20/2013 General Appearance: Obese female, NAD. Skin: Skin color, turgor normal, no suspicious rashes or lesions. Small areas of eczema Head: Normocephalic, no masses, lesions, tenderness or abnormalities. Eyes: Sclera, conjunctiva normal. Oropharynx: Normal oral aperture, no telangiectasias. Neck: No JVD, no masses, no thyromegaly. Lungs: Not labored, normal to percussion, no wheezes or crackles. Heart: Regular rate and rhythm, systolic murmur right upper sternal border, no increased P2 or split S2 Extremities: Mechanics hands, no nail abnormalities, no clubbing, mild lower extremity edema. Musculoskeletal: No joint deformities or effusions. Neurologic: Alert and oriented, no focal findings. Lymph Nodes: No cervical lymphadenopathy and No supraclavicular lymphadenopathy. Assessment/Plan: 1. Abnormal centromere antibody -Although patient has a elevated centromere antibody she does not have findings suggestive of limited systemic sclerosis. 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 I did not see an anti-Haydee antibody in her laboratory testing. If she does have antisynthetase syndrome this places her at risk for pulmonary fibrosis but she had no evidence of diffusion defect on her pulmonary function test and she had a normal CT of her chest performed in December --JOE panel 2. Heart murmur -Last echocardiogram was normal but patient has a rather loud systolic murmur -Update echocardiogram Lisette Lane MD [facility] documented in this encounter [facility] 09-23-2023 Miscellaneous Notes Patient calls to request a copy of Lumbar MRI from 2020 and copy of Lumbar X-ray from 2022. Patient requests to pickle pumper in Medical Records. Copies placed in Medical Records per request. Patient aware they are available for pickle pumper. Valentine Paredes RN documented in this encounter [facility] 08-30-2023 Note HNO ID: [id number] Author: LUPIS APODACA RPFT Service: ? Author Type: Respiratory Therapist Type: Progress Notes Filed: 08/30/2023 14:40 Note Text: PULM FUNCTION SMARTBLOCK: Provider: Lisette Lane MD Assisting Tech: Lupis Apodaca RPFT Spirometry w/BD: 1 DLCO: 1 LV - Box: 1 [facility] 08-26-2023 History of Present illness Narrative Images from the original note were not included. 50 BREAST CONSULT HISTORY & PHYSICAL EXAMINATION Patient Name: Aminata Cohen MR #: [id number] : 1965 Physicians: Rogelio Thomas MD (Family); Lisette Ramos* (Referring) History of Present Illness: The patient is a 58 y.o. female past medical history of left breast cyst, hypertension, pituitary microadenoma and Raynaud's disease presenting with right breast mass. Patient reports that she has appreciated a sensation of a mass in the right breast for 3 years. Denies any significant growth or change in it. 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 She was referred for surgical evaluation because she continues to appreciate and palpate a mass when she showering and its causing her to have anxiety. Family history is notable for breast cancer and a maternal aunt Risk Factors Age of menarche at 12 years Age of menopause at 49} years. CLOCK MAKER History: She is G 0 P 0 M 0 A 0 with age at first delivery being N/A years. History of nursing: N/A. control pills: Yes. Hormone replacement therapy: No. Caffeine intake yes History of prior breast biopsy yes History of prior breast cancer no Family History : Breast cancer yes maternal aunt Ovarian Cancer no Endometrial cancer no Family History of breast disease no History: I have reviewed the PMHx, PSHx, SHx, FHx in EMR with the patient during this encounter face to face and patient agrees with the documentation Past Medical History: Diagnosis Date Alopecia Arthritis Breast cyst 1980 GERD (gastroesophageal reflux disease) Heart murmur HTN (hypertension) Lupus (HCC) Migraine Obesity Pituitary microadenoma (HCC) Raynaud's disease Past Surgical History: Procedure Laterality Date BONE MARROW ASPIRATION 08/23/2012 Dr. Yonatan Zelaya BONE MARROW ASPIRATION 06/03/2007 Dr. Krishna Jones COLONOSCOPY 05/14/2014 mild diverticulosis, internal hemorrhoids.....Dr. Leticia Cox COLONOSCOPY N/A 01/05/2022 Procedure: COLONOSCOPY; Surgeon: Isis Nevarez MD; Location: [facility] [place]; Service: General Surgery COLONOSCOPY 03/08/2006 internal and external hemorrhoids, irritable bowel....Dr. Leticia Cox CYST REMOVAL Left cyst removed from left breast ESOPHAGOGASTRODUODENOSCOPY 05/14/2014 mild esophagitis, hiatal hernia......Dr. Leticia Cox ESOPHAGOGASTRODUODENOSCOPY 08/08/2010 mild esophagitis.....Dr. Leticia Cox Family History Problem Relation Age of Onset Diabetes Mother Hypertension Mother Diabetes Father Hypertension Father Breast cancer Maternal Aunt Social History Socioeconomic History Marital status: Single Tobacco Use Smoking status: Never Smokeless tobacco: Never Vaping Use Vaping Use: Never used Substance and Sexual Activity Alcohol use: Never Drug use: Never Allergy Information: I have reviewed the patient's allergies. No known drug allergies Home Medications: Outpatient Medications as of 08/26/2023 Medication Sig ascorbic acid, vitamin C, (VITAMIN C) 1000 MG tablet Take 1 (one) tablet (1,000 mg total) by mouth daily . hydrOXYchloroQUINE (PLAQUENIL) 200 mg tablet Take 2 (two) tablets (400 mg total) by mouth daily . loratadine (CLARITIN) 10 mg tablet 1 (one) tablet (10 mg total) as needed . MAGNESIUM ORAL Take by mouth . multivitamin (THERAGRAN) per tablet Take 1 (one) tablet by mouth daily . NIFEdipine (PROCARDIA XL) 30 MG 24 hr tablet Take 1 (one) tablet (30 mg total) by mouth daily as needed. omeprazole (PRILOSEC) 40 MG capsule Take 1 (one) capsule (40 mg total) by mouth daily. Review of Systems: Review of Systems Physical Examination: Vital Signs: BP (!) 142/87 Pulse 87 Resp 14 Ht 5' 5 Wt 97.1 kg (214 lb) SpO2 99% BMI 35.61 kg/m Physical Exam Constitutional: Appearance: Normal appearance. HENT: Head: Normocephalic. Nose: Nose normal. Eyes: Pupils: Pupils are equal, round, and reactive to light. Cardiovascular: Rate and Rhythm: Normal rate. Pulses: Normal pulses. Chest: Breasts: Right: Mass present. No nipple discharge or skin change. Left: No mass, nipple discharge or skin change. Abdominal: Palpations: Abdomen is soft. Tenderness: There is no abdominal tenderness. Musculoskeletal: General: Normal range of motion. Cervical back: Normal range of motion. Lymphadenopathy: Upper Body: Right upper body: No axillary adenopathy. Left upper body: No axillary adenopathy. Skin: General: Skin is warm. Neurological: General: No focal deficit present. Mental Status: She is alert. Psychiatric: Mood and Affect: Mood normal. Thought Content: Thought content normal. Laboratory and Additional Data Reviewed: Laboratory 08/26/23 3:13 PM Imaging Bilateral mammogram date of exam 06/30/2023 There are scattered areas of fibroglandular density. No dominant mass, suspicious cluster of microcalcifications or architectural distortion demonstrated in either breast. Overall no significant change compared to prior exam. Impression: BI-RADS 1: Negative Pathology-none Assessment and Plan: The patient is a 57 y.o. female past medical history of left breast cyst, hypertension, pituitary microadenoma and Raynaud's disease presenting with right breast mass. I can subtly feel an irregular area in the fatty tissue at the 9 o'clock position of the right breast. Discussed with the patient though that based on her ultrasound and her mammogram there is no concerning findings. Overall this does not feel like it is changed on size since I last saw the patient. Her mammograms continue to be normal over the last 2 years. No abnormal calcifications. I did discuss attempting to take out this area I subtly appreciate however uncertain if this actually correlates to any abnormality and would only risk scarring and making her mammograms more difficult to read. I would recommend continued close observation with physical exam and annual screening mammography. Patient can return to the office if any problems or changes are appreciated. Total time 15 minutes, greater than 50% spent [id number] with the patient obtaining history, performing exam reviewing her outside imaging and coordinating care documented in this encounter [facility] 08-12-2023 Instructions Jamir Ying DO - 08/12/2023 3:18 PM EST It was nice to see you today! 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 Because of this, we need to be careful with any steroid use as it can cause kidney issues. I think you have features of scleroderma and lupus Repeat some blood work and urine tests today Send you pulmonology - lung doctors We will keep you on plaquenil Many of the medications we prescribe require routine safety labs or eye exams. Refills will be provided after these are obtained. Please allow up to 3 business days for refills to be provided. If you have an urgent question or concern, please call our office at [phone]. If you have a non-urgent concern, please call or send a Numonyxt message. Please allow up to 3 business days for a Coub message response. Sincerely, Jamir Ying DO Rheumatology documented in this encounter [facility] 08-12-2023 History of Present illness Narrative Images from the original note were not included. RHEUMATOLOGY FOLLOW-UP VISIT Patient Name: Aminata Cohen : 1965 Medical Record: [id number] PCP: Rogelio Thomas MD CHIEF COMPLAINT SLE/? Scleroderma ASSESSMENT AND PLAN Aminata Cohen is a 58 y.o. female who is being seen for evaluation of SLE/? 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 I reviewed labs and imaging obtained with patient at last office visit. I discussed with her that while she has some features of lupus such as leukopenia, arthritis, and oral ulcers, given her positive centromere antibody (which is highly specific for CREST) and positive RNA polymerase 3 which is another scleroderma antibody, she likely has features of both SLE and systemic sclerosis. I reviewed her echocardiogram and CT chest obtained by Dr. Herbert. Echo with no evidence of pulmonary hypertension. Mild aortic regurgitation noted. CT chest normal. PFTs did show a mildly reduced DLCO. There was also concern for small airway disease. On exam she does have scaliness present particularly over the palms of her hand, but not limited to the radial side as is most common with mechanics hands. No overt evidence of sclerodactyly at this point. I also discussed patient's positive RNA polymerase 3 antibody and how this can be associated with scleroderma renal disease, particularly scleroderma renal crisis. Advised patient that she needs to be cautious/avoid with the use of steroids given this antibody. Plan: CBC, creatinine, LFTs, C3/C4, dsDNA, UA, and UPC today. Will also obtain ESR/CRP. Given question of mechanics hands, will also order myomarker 3 panel. Given mild decrease in DLCO noted on PFTs along with concern for possible small airway disease, I will refer her to pulmonology in [place], Dr. Lisette Lane with [facility]. We will also request biopsy results from her recent biopsy of an oral ulcer with her radio news writer. Continue hydroxychloroquine 200 mg twice daily. I did discuss with patient that typically hydroxychloroquine is safe to continue perioperatively, however, this would be at her surgeon's discretion. Per 2021 [place] [employer]/[place] [employer] Guideline for the Perioperative Management of Antirheumatic Medication in Patients with Rheumatic Diseases Undergoing Elective Total Hip or Total Knee Arthroplasty, it has been deemed to be safe to continue in the setting of hip and knee arthroplasties. High risk medication use She is up-to-date on eye exam and follows with Dr. Johns at [facility]. I reviewed her visit notes from June with no evidence of toxicity Return to clinic in 3 months Please do not hesitate to contact me with any questions or concerns. Jamir Ying, [facility] Rheumatology [address] [place] [address] O: [phone] F: [phone] The above recommendations were discussed with the patient who understands and agrees with the plan. Portions of this note were copied forward from the patient's last clinic visit.? I have reviewed and updated the history, physical exam, data, assessment and plan of the note so that it reflects the evaluation and management of the patient on 08/12/2023. Portions of this note were created with [employer]. Every effort was made to proofread, but sound-alike errors may occasionally occur. Please contact me for any clarification of note contents. I spent of total of 40 minutes on this patient encounter on the date of visit, which includes the following. [x]Reviewing records in preparation for the visit [x]Obtaining history and performing exam [x]Counseling patient on the plan [x]Ordering medications and/or tests [x]Referring to another provider or coordinating care [x]Documentation in the electronic medical record HPI/ESPERANZA Cohen is a 58 y.o. female who is being seen in follow-up for SLE has a past medical history of Alopecia, Arthritis, Breast cyst (1980), GERD (gastroesophageal reflux disease), Heart murmur, HTN (hypertension), Lupus (HCC), Migraine, Pituitary microadenoma (HCC), and Raynaud's disease. Interval history I reviewed the nursing intake form. Any corrections needed have been updated in the HPI. Patient is here to establish care today. Saw Dr. Herbert once previously. Doing okay overall. Patient is doing okay overall. She is having a lot of back pain and is considering surgery for her back. Has history of Raynaud's. Thinks that nifedipine helps somewhat. Not significantly bothersome for patient unless she is out in the cold. Has not noticed a lot of skin tightening or thickening at this point. Does have a lot of dryness in her hands. Reports that she has never had an issue with her hydroxychloroquine eye exam. Prior and initial history Had [address] Herbert in October 2022. Prior to that, lupus was diagnosed around 2009. Previously followed with a workforce investment act career manager, Dr. Goins. Symptoms at that time included arthralgias, particularly in the knees, and hair loss and reports of rash. Within the last 1 [address] Herbert's note, patient developed Raynaud's. She also had some left ankle swelling Serologies SHIVANI positive >1: 320 centromere. dsDNA negative. Positive RNA polymerase 3. Positive centromere antibody. Normal C3/C4 UPC with 0.4. UA with no RBCs or protein noted. History of leukopenia Pertinent imaging/pathology CT chest from December 2022 with no evidence of ILD or other fibrosis. TTE with normal LVEF of 62%. Mild aortic valve regurgitation. Mild reduction in DLCO noted. Mid flows severely reduced suggesting small airway disease. X-rays of bilateral hands without reported erosive disease. X-rays of knees with OA. Prior rheumatology medications N/A PHYSICAL EXAM Vitals: 08/12/23 1435 BP: (!) 146/89 Pulse: 91 Weight: 96 kg (211 lb 9.6 oz) Constitutional: ?No acute distress. Normal appearance. Not?ill-appearing. HENT: Head normocephalic?and atraumatic. Possible slight irritation to gumline, but no significant ulceration noted. Eyes: No discharge.??? Pulmonary: Pulmonary effort is normal. No?respiratory distress. Skin: Warm?and dry. No sclerodactyly appreciated on hands. No active Raynaud's. Scaling on palms of hands noted bilaterally. Hyperpigmented lesion that was flat noted on both arms. Neurological: Alert. Psychiatric: ???Mood, affect, thought content normal. Musculoskeletal: Left ankle with mild puffiness, but no significant tenderness. No synovitis noted in hands. MEDICATIONS Reviewed. LABS/IMAGING Please see HPI for pertinent imaging/labs. RHEUMATOLOGY FOLLOW-UP VISIT INTAKE: Have you had any new illnesses, infections, or hospitalizations? ? []Yes [x]No If yes, please specify: Are you having any side effects from your rheumatology medications? ? []Yes ? [x]No ? []N/A If yes, please specify: Are you having morning stiffness? ? [x]Yes []No How many minutes does it last? 2 min Are you having any joint swelling? ? [x]Yes []No If yes, what joints? Global Assessment: Considering all of the ways that your disease affects you, how are you doing (0 = best ; 10 = worst)? 6.0 documented in this encounter [facility] 07-08-2023 History of Present illness Narrative NEUROSURGERY CONSULT NOTE Patient Name: Aminata Cohen Patient : 1965 PCP: JACK VELÁSQUEZ MD History of Present Ilness: 58 y.o. presents with low back pain and right leg pain. States she has some difficulty ambulating, but this improves the more she walks. The back pain is worse with movement and weightbearing activity. Pain is worse in her hip and gluteal region. She feels like her back is weak and unstable. She states her pain is severe and she has difficulty doing activities of daily living due to her symptoms. She has history of lupus and takes plaquenil for this. Chief Complaint Patient presents with New Patient Lumbar pain Past Medical History: History reviewed. No pertinent past medical history. Past Surgical History: History reviewed. No pertinent surgical history. Home Medications: Prior to Admission medications Medication Sig Start Date End Date Taking? Authorizing Provider ascorbic acid (Vitamin C) 500 MG tablet Take 500 mg by mouth in the morning. Yes Historical Provider, cholecalciferol (Vitamin D-3) 50 MCG (2000 UT) capsule Take 2,000 Units by mouth in the morning. Yes Historical Provider, desloratadine (Clarinex) 5 MG tablet 05/12/23 Yes Historical Provider, hydroxychloroquine (Plaquenil) 200 MG tablet Take 400 mg by mouth in the morning. 11/23/22 Yes Historical Provider, loratadine (Claritin) 10 MG tablet 10 mg. Yes Historical Provider, Multiple Vitamin (multivitamin) capsule Take 1 capsule by mouth in the morning. Yes Historical Provider, NIFEdipine XL (Procardia XL) 30 MG 24 hr tablet 05/31/23 Yes Historical Provider, omeprazole (PriLOSEC) [address] capsule Take 1 capsule by mouth daily. Yes Historical Provider, triamcinolone (Kenalog) 0.1 % cream Apply to any areas of rash/itching you can see or feel on body 1x daily when flared 03/24/23 Yes Historical Provider, Allergies: Patient has no known allergies. Social History: TOBACCO: reports that she has never smoked. She has never used smokeless tobacco. ETOH: reports that she does not currently use alcohol. RECREATIONAL DRUG USE: Social History Substance and Sexual Activity Drug Use Not Currently Family History: No family history on file. Review of Systems Constitutional: Negative for chills and fever. HENT: Negative for congestion, rhinorrhea and sore throat. Eyes: Negative for photophobia and visual disturbance. Respiratory: Negative for cough and shortness of breath. Cardiovascular: Negative for chest pain and palpitations. Gastrointestinal: Negative for abdominal pain, nausea and vomiting. Genitourinary: Negative for decreased urine volume and difficulty urinating. Musculoskeletal: Positive for back pain and gait problem. Negative for neck pain. Skin: Negative for rash and wound. Neurological: Positive for weakness. Negative for dizziness, seizures, speech difficulty, numbness and headaches. Psychiatric/Behavioral: Negative for behavioral problems and confusion. Physical Examination: Vitals: 07/08/23 1456 BP: 125/84 Pulse: 81 Physical Exam Vitals reviewed. Constitutional: Appearance: Normal appearance. HENT: Head: Normocephalic and atraumatic. Nose: Nose normal. Mouth/Throat: Pharynx: Oropharynx is clear. Eyes: Extraocular Movements: Extraocular movements intact. Conjunctiva/sclera: Conjunctivae normal. Cardiovascular: Rate and Rhythm: Normal rate and regular rhythm. Pulses: Normal pulses. Pulmonary: Effort: Pulmonary effort is normal. No respiratory distress. Abdominal: General: There is no distension. Palpations: Abdomen is soft. Tenderness: There is no abdominal tenderness. Musculoskeletal: General: No tenderness. Normal range of motion. Cervical back: Normal range of motion and neck supple. No rigidity. Skin: General: Skin is warm and dry. Neurological: Mental Status: She is alert and oriented to person, place, and time. Cranial Nerves: No cranial nerve deficit. Sensory: No sensory deficit. Motor: Weakness present. Gait: Gait abnormal. Deep Tendon Reflexes: Reflexes abnormal. Comments: DTRs absent in BLE Diminished ROM in lumbar spine Difficulty with standing from a chair Strength 3/5 in right hip flexion Psychiatric: Mood and Affect: Mood normal. Behavior: Behavior normal. Neurologic Exam Mental Status Oriented to person, place, and time. Gait Mildly unsteady Results Labs: Last 24hrs No results found for this or any previous visit (from the past 24 hour(s)). Radiology Personal review: Recent MRI and x-rays of the lumbar spine were reviewed. She has a grade 1-2 spondylolisthesis L4-5 with significant associated stenosis and neural compression. She has advanced facet arthropathy with fluid within the facet joints at this level. She has small disc protrusions L3-4 and L5-S1 ASSESSMENT / PLAN : 58yo f with symptomatic pathology referable to her lumbar spine. Her imaging was reviewed with her, and she is symptomatic to the above noted pathology. Both surgical and conservative treatment options were discussed with her. With respect to surgery, the risks, benefits, and alternatives to an L4-L5 decompression fusion with pedicle screw fixation and possible use of iliac crest graft were discussed and understood by the patient. The rehabilitation process and prognosis were discussed as well and all her questions were answered. She is considering her options at this time. It would be best if she could avoid use of plaquenil for 3 months after surgery as this will stop the healing of her fusion. She is considering her options at this time. We discussed conservative options for now such as medication, therapy, and activity modification. Diagnosis Plan 1. Spondylolisthesis of lumbar region documented in this encounter [facility] 07-01-2023 Miscellaneous Notes Below noted--I just wanted to verify that she was still getting labs done for her workforce investment act career manager since did not see any results from the outside provider since November. She does not have to get them faxed if they are connected to [employer] Everywhere. I would not order duplicate labs. I can add labs to the outside labs if they do not check things like magnesium and lipids when those are due for screening. Also did not see a recent metabolic panel checking electrolytes and blood sugar. Patient returned call and went over notes below from Dr Thomas. Patient said she gets labs done by her arthritis Dr in [place] not [place], she has never had to do blood work for Dr Thomas. She gets labs done twice a year, told her to have results faxed to Dr Thomas gave her fax number. Patient said she does not want to be charged twice for same lab work. Patient wants to discuss further at her appt in December 2023. Left a message for pt to call the office and ask to speak to a nurse. Freda Birch LPN See if needs orders for labs for December 2023 appointment if will be getting labs done at outside lab. Should get labs at least once yearly for meds she is on (including magnesium). Last labs done at outside lab that can find with [facility] Everywhere is November 2022. The following approved medication requests have been transmitted electronically. Requested Prescriptions Signed Prescriptions Disp Refills omeprazole (PRILOSEC) 40 mg capsule 90 capsule 1 Sig: Take 1 capsule by mouth once daily. Authorizing Provider: ROGELIO THOMAS MD Patient has been identified by name and date of : Patient phones for refill(s): Requested Prescriptions Pending Prescriptions Disp Refills omeprazole (PRILOSEC) 40 mg capsule 90 capsule 0 Sig: Take 1 capsule by mouth once daily. Date of last office visit in primary care: 12/17/2022 Date of next office visit in primary care: 12/07/2023 Last 2 Encounter Wt Readings: Date: Wt: 12/17/2022 95.3 kg (210 lb) 10/28/2022 96.6 kg (213 lb) Previous labs/tests for medication: Not applicable Please advise. Thank you. Aruna Pires LPN. documented in this encounter [facility] 05-12-2023 Note Patient Outreach (IN [facility]) AMINATA COHEN ([id number]) 1965 F Date Time Provider Department 05/12/23 ROGELIO THOMAS During your visit today, we recorded the following information about you: Allergies As of Date: 05/12/2023 Noted Allergy Reaction SEASONAL ALLERGIES 03/02/2018 16 - Unknown Date Reviewed: 12/17/2022 Reviewed by: Shanae Avalos APRN.LATHE WINDER - Fully Assessed Visit Diagnosis:Encounter for screening mammogram for breast cancer [Z12.31] Order(s):[facility] SCREENING [[id number]] Order #: [id number] FUTURE Prescriptions as of 05/17/2023 - cholecalciferol (VITAMIN D3) 1,000 unit tab tablet Take 1 tablet by mouth once daily. - desloratadine (CLARINEX) 5 mg tablet Take 1 tablet by mouth once daily. - famotidine (PEPCID) 20 mg tablet Take 1 tablet by mouth at bedtime as needed (for reflux and abdominal pain). - hydrOXYchloroQUINE (PLAQUENIL) 200 mg tablet Take 2 tablets by mouth once daily. - naproxen sodium (ALEVE) 220 mg tablet Take 2 tablets by mouth daily with breakfast. TAKE WITH FOOD - NIFEdipine ER (PROCARDIA XL) 30 mg 24 hr tablet Take 1 tablet by mouth once daily. as directed - omeprazole (PRILOSEC) 40 mg capsule Take 1 capsule by mouth once daily. - predniSONE (DELTASONE) 10 mg tablet Take 40 mg x 3 days, 20 mg x 3 days, 10 mg x 3 days. Take with food, once daily in the morning Meds Comments as of 01/09/2009: No meds Problem List As Of Date 05/12/2023 Noted Resolved Heart murmur, systolic [R01.1] 12/22/2011 Anemia [D64.9] 01/18/2012 Leukopenia [D72.819] 01/18/2012 Heartburn [R12] 03/10/2012 Esophageal reflux [K21.9] 03/10/2012 Esophagitis, unspecified [K20.90] 03/10/2012 Pituitary adenoma (HCC) [D35.2] 07/10/2013 Raynaud's phenomenon [I73.00] Reactive hypoglycemia [E16.1] 11/26/2013 Pituitary tumor [D49.7] 05/22/2014 Other vitreous opacities - Both Eyes [H43.399] 05/22/2014 Lupus (systemic lupus erythematosus) (HCC) [M32* Neutropenia (HCC) [D70.9] 09/04/2016 Obesity, Class I, BMI 30-34.9 [E66.9] 06/27/2019 Encounter Status:Closed by [employer] on 05/17/23 [facility] 05-10-2023 Miscellaneous Notes Patient is asking for 90 day supply to go to [facility]. Patient has been identified by name and date of : Yes Patient phones for refill(s): Requested Prescriptions Pending Prescriptions Disp Refills famotidine (PEPCID) 20 mg tablet 90 tablet 0 Sig: Take 1 tablet by mouth at bedtime as needed (for reflux and abdominal pain). hydrOXYchloroQUINE (PLAQUENIL) 200 mg tablet 180 tablet 2 Sig: Take 2 tablets by mouth once daily. NIFEdipine ER (PROCARDIA XL) 30 mg 24 hr tablet 90 tablet 2 Sig: Take 1 tablet by mouth once daily. as directed Date of last office visit in primary care: 12/17/2022 Follow-up: 12/07/2023 Last 2 Encounter Wt Readings: Date: Wt: 12/17/2022 95.3 kg (210 lb) 10/28/2022 96.6 kg (213 lb) Previous labs/tests for medication: Blood Pressure: BUN (mg/dL) Date Value 04/18/2022 9 01/10/2021 9 Sodium (mmol/L) Date Value 04/18/2022 138 01/10/2021 142 Last 1 Encounter BP Readings: Date: BP: 12/17/2022 130/90 Please advise. Thank you. Mariela Brady LPN Patient has been identified by name and date of : Yes Requested Prescriptions Pending Prescriptions Disp Refills famotidine (PEPCID) 20 mg tablet 30 tablet 0 Sig: Take 1 tablet by mouth at bedtime as needed (for reflux and abdominal pain). hydrOXYchloroQUINE (PLAQUENIL) 200 mg tablet 180 tablet 0 Sig: Take 2 tablets by mouth once daily. NIFEdipine ER (PROCARDIA XL) 30 mg 24 hr tablet 90 tablet 0 Sig: Take 1 tablet by mouth once daily. as directed RX INSTRUCTIONS: Patient aware RX escripted to mail away pharmacy. No need to notify patient. Salome Yee Pss documented in this encounter [facility] 03-26-2023 Miscellaneous Notes Patient returned call and given provider's message below with verbalized understanding. Patient states she was not told she needed a f/u appt. Asking what the f/u was for. Reports she was at work and will call back to schedule f/u appt and asked nurse to leave vm to let her know what f/u was for. Did leave vm letting patient know f/u was for, per 12-17-22 appt: 5. Gastroesophageal reflux disease, unspecified whether esophagitis present - ICD9: 530.81, ICD10: K21.9 Unclear if this is an abdominal problem or referred back pain to right hip and right lower abdomen. We will add famotidine Complete ultrasound of abdomen Prednisone for hip and back pain Return to clinic in 1 week for recheck Shanae Avalos APRN.LATHE WINDER Left a message for pt to call the office and ask to speak to a nurse. Freda Birch LPN 1 week follow up was not made with Shanae after the 12/17 appointment with her this year. Needs follow up appointment made. Will add refills at appointment The following approved medication requests have been transmitted electronically. Requested Prescriptions Signed Prescriptions Disp Refills NIFEdipine ER (PROCARDIA XL) 30 mg 24 hr tablet 90 tablet 0 Sig: Take 1 tablet by mouth once daily. as directed Authorizing Provider: ROGELIO THOMAS omeprazole (PRILOSEC) 40 mg capsule 90 capsule 0 Sig: Take 1 capsule by mouth once daily. Authorizing Provider: ROGELIO THOMAS MD Patient has been identified by name and date of : Yes Patient phones for refill(s): Requested Prescriptions Pending Prescriptions Disp Refills NIFEdipine ER (PROCARDIA XL) 30 mg 24 hr tablet 90 tablet 3 Sig: Take 1 tablet by mouth once daily. as directed omeprazole (PRILOSEC) 40 mg capsule 90 capsule 3 Sig: Take 1 capsule by mouth once daily. Date of last office visit in primary care: 12/17/2022 No future appt scheduled. Last 2 Encounter Wt Readings: Date: Wt: 12/17/2022 95.3 kg (210 lb) 10/28/2022 96.6 kg (213 lb) Previous labs/tests for medication: Blood Pressure: BUN (mg/dL) Date Value 04/18/2022 9 01/10/2021 9 Sodium (mmol/L) Date Value 04/18/2022 138 01/10/2021 142 Last 1 Encounter BP Readings: Date: BP: 12/17/2022 130/90 Please advise. Thank you. Mariela Brady LPN Patient has been identified by name and date of : Yes Requested Prescriptions Pending Prescriptions Disp Refills NIFEdipine ER (PROCARDIA XL) 30 mg 24 hr tablet 90 tablet 3 Sig: Take 1 tablet by mouth once daily. as directed omeprazole (PRILOSEC) 40 mg capsule 90 capsule 3 Sig: Take 1 capsule by mouth once daily. RX INSTRUCTIONS: Patient aware RX will be sent to pharmacy. No need to notify patient. Helen Katz documented in this encounter [facility] 12-29-2022 Miscellaneous Notes Letter mailed to patient's home with results. LEFT MESSAGE FOR PATIENT TO CALL OFFICE. Attempted to reach patient with no answer and unable to leave a message due to mailbox is full. No answer and mailbox is full. Please let her know test results: XR hips and lumbar spine-- Calcifications at greater trochanter bilaterally, otherwise unremarkable hip. Degenerative changes of the lower lumbar spine. Negative urinalysis and culture documented in this encounter [facility] 12-24-2022 Note HNO ID: [id number] Author: Celeste Rodas RDMS Service: ? Author Type: Application Project Leader Type: Progress Notes Filed: 12/24/2022 4:08 PM Note Text: Radiology Service Progress Note PATIENT NAME: Aminata Cohen DATE OF SERVICE: December 24, 2022 TIME: 4:08 PM PATIENT IDENTITY VERIFICATION COMPLETED USING TWO (2) IDENTIFIERS: Name and Date of confirmed by patient verbally. FALL SCREENING: Has the patient had 2 falls in the last year or 1 fall with injury or currently using an Ambulatory Assistive Device (Walker, Cane, Wheelchair, Crutches, etc.)? No PATIENT GENDER DATA: Female. status: : No status: NO. PATIENT RELEVANT IMPLANT DATA REVIEWED: Not Applicable RADIOLOGY DEPARTMENT: Ultrasound PERIPHERAL IV DATA: Not applicable SIGNED BY: Celeste Rodas RDMS RVT December 24, 2022 4:08 PM [facility] 12-24-2022 History of Present illness Narrative Radiology Service Progress Note PATIENT NAME: Aminata Cohen DATE OF SERVICE: December 24, 2022 TIME: 4:08 PM PATIENT IDENTITY VERIFICATION COMPLETED USING TWO (2) IDENTIFIERS: Name and Date of confirmed by patient verbally. FALL SCREENING: Has the patient had 2 falls in the last year or 1 fall with injury or currently using an Ambulatory Assistive Device (Walker, Cane, Wheelchair, Crutches, etc.)? No PATIENT GENDER DATA: Female. status: : No status: NO. PATIENT RELEVANT IMPLANT DATA REVIEWED: Not Applicable RADIOLOGY DEPARTMENT: Ultrasound PERIPHERAL IV DATA: Not applicable SIGNED BY: Celeste Rodas RDMS RVT December 24, 2022 4:08 PM documented in this encounter [facility] 12-24-2022 Miscellaneous Notes Has 6/5 appt to reassess documented in this encounter [facility] 12-17-2022 Note HNO ID: [id number] Author: RT Daniel(R) Service: ? Author Type: Roll On Worker Type: Progress Notes Filed: 12/17/2022 4:53 PM Note Text: Radiology Service Progress Note PATIENT NAME: Aminata Cohen DATE OF SERVICE: December 17, 2022 TIME: 4:31 PM PATIENT IDENTITY VERIFICATION COMPLETED USING TWO (2) IDENTIFIERS: Name and Date of confirmed by patient verbally. FALL SCREENING: Has the patient had 2 falls in the last year or 1 fall with injury or currently using an Ambulatory Assistive Device (Walker, Cane, Wheelchair, Crutches, etc.)? No PATIENT GENDER DATA: Female. status: : No status: NO. PATIENT RELEVANT IMPLANT DATA REVIEWED: Yes RADIOLOGY DEPARTMENT: General X-ray: Exam(s) Completed: Spine X-Ray(s): Lumbar AP / LAT / L5-S1 Pelvis X-Ray: Pelvis with Hip Right PERIPHERAL IV DATA: Not applicable SIGNED BY: RT Daniel(R) December 17, 2022 4:31 PM [facility] 12-17-2022 Note HNO ID: [id number] Author: Shanae Avalos APRN.LATHE WINDER Service: ? Author Type: Nurse Specialist Type: Progress Notes Filed: 12/17/2022 4:37 PM Note Text: SUBJECTIVE: HEPATITIS B(1 of 3 - 3-dose series) Never done HIV SCREENING Never done DTAP,TDAP,TD(1 - Tdap) Never done SHINGRIX VACCINE(1 of 2) Never done MAMMOGRAM due on 05/03/2021 COVID-19 VACCINE(4 - Booster for Moderna series) due on 09/29/2021 JALIL Cohen is a 55 year old female. Her past medical history significant for ACTIVE PROBLEM LIST Heart Murmur, Systolic Anemia Leukopenia Heartburn Esophageal Reflux Esophagitis, Unspecified Pituitary Adenoma (Hcc) Raynaud's Phenomenon Reactive Hypoglycemia Pituitary Tumor Other vitreous opacities - Both Eyes Lupus (Systemic Lupus Erythematosus) (Hcc) Neutropenia (Hcc) Obesity, Class I, Bmi 30-34.9 Presents today regarding abdominal pain. See phone encounter yesterday. Today reports right lower abdomen, achey/throbbing, mild. Notes right lateral hip tightness/painful feeling. Notes right sided low back pain with radiation down right leg Right leg feeling numb in thigh area Fever: no Heartburn:no Reflux: no Abdominal pain: no Nausea: no Vomiting: no Diarrhea: no Constipation:no BRBPR: no Black tarry: no Maintaining oral intake: yes Current treatment: Plaquenil for lupus. Occasional aleve, helps a little. Aggravate: worse with movement Alleviate: resting, lying down Stiff in the morning. Review of Systems Constitutional: Negative. Gastrointestinal: Positive for abdominal pain. Musculoskeletal: Positive for arthralgias and back pain. Objective [facility] 07/20/2013 (Approximate) Physical Exam Constitutional: Appearance: Normal appearance. HENT: Head: Normocephalic and atraumatic. Eyes: Conjunctiva/sclera: Conjunctivae normal. Neck: Thyroid: No thyromegaly or thyroid tenderness. Cardiovascular: Rate and Rhythm: Normal rate and regular rhythm. Pulses: Carotid pulses are 2+ on the right side and 2+ on the left side. Radial pulses are 2+ on the right side and 2+ on the left side. Heart sounds: Murmur (SM RUSB 3/6, referred to bilat carotids) heard. Pulmonary: Effort: Pulmonary effort is normal. Breath sounds: Normal breath sounds. Abdominal: General: Bowel sounds are normal. Palpations: Abdomen is soft. Tenderness: There is abdominal tenderness (RLQ) in the right lower quadrant. Comments: lateral RLQ Musculoskeletal: Lumbar back: Tenderness present. Decreased range of motion. Negative right straight leg raise test and negative left straight leg raise test. Right hip: Tenderness present. Decreased range of motion. Right lower leg: No edema. Left lower leg: No edema. Skin: General: Skin is warm and dry. Neurological: Mental Status: She is alert. Mental status is at baseline. ALLERGIES Allergen Reactions Seasonal Allergies Unknown hydrOXYchloroQUINE (PLAQUENIL) 200 mg tablet Take 2 tablets by mouth once daily. desloratadine (CLARINEX) 5 mg tablet Take 1 tablet by mouth once daily. omeprazole (PRILOSEC) 40 mg capsule Take 1 capsule by mouth once daily. NIFEdipine ER (PROCARDIA XL) 30 mg 24 hr tablet Take 1 tablet by mouth once daily. as directed naproxen sodium (ALEVE) 220 mg tablet Take 2 tablets by mouth daily with breakfast. TAKE WITH FOOD cholecalciferol (VITAMIN D3) 1,000 unit tab tablet Take 1 tablet by mouth once daily. PAST MEDICAL HISTORY Diagnosis Date Anemia Arthritis Esophagitis, unspecified GERD (gastroesophageal reflux disease) Hypertension Leukopenia Lupus (systemic lupus erythematosus) (HCC) diagnosed by Dr. Silverio Migraine headache without aura Neutropenia (HCC) Pituitary adenoma (HCC) Raynaud's phenomenon Social History Tobacco Use Smoking status: Never Smokeless tobacco: Never Substance Use Topics Alcohol use: No Drug use: No ASSESSMENT/PLAN: 1. Lower abdominal pain - ICD9: 789.09, ICD10: R10.30 (primary diagnosis) - UA DIP, URINE (POC) - URINE CULTURE - US ABDOMEN LTD 2. Acute right-sided low back pain with right-sided sciatica - ICD9: 724.2, 724.3, ICD10: M54.41 - XR HIP GENERAL 3V PELV/AP/LAT RIGHT - XR LUMBAR GENERAL 3V AP/LAT/L5-S1 3. Right hip pain - ICD9: 719.45, ICD10: M25.551 - XR HIP GENERAL 3V PELV/AP/LAT RIGHT 4. Systemic lupus erythematosus, unspecified SLE type, unspecified organ involvement status (HCC) - ICD9: 710.0, ICD10: M32.9 5. Gastroesophageal reflux disease, unspecified whether esophagitis present - ICD9: 530.81, ICD10: K21.9 Unclear if this is an abdominal problem or referred back pain to right hip and right lower abdomen. We will add famotidine Complete ultrasound of abdomen Prednisone for hip and back pain Return to clinic in 1 week for recheck Shanae Avalos APRN.LATHE WINDER Medical Decision Making: Problems: Moderate: New problem with uncertain prognosis Data: Unique test(s) ordered: 3+ (more content not included)... [facility] 11-23-2022 History of Present illness Narrative Images from the original note were not included. RHEUMATOLOGY NEW PATIENT VISIT Patients name: Aminata Cohen : 1965 Today's date: 11/23/2022 Reason for visit: referred by Dr. Thomas for lupus Disease summary:SLE diagnosed in ~[address] Goins (hair loss, rash, arthralgia) Status: controlled. Serology: +ve SHIVANI, CLINICAL MENTAL HEALTH COUNSELOR -ve Radiology: Current Meds: HCQ 400mg/day Pain control: Prior Meds: HPC: This is a 57 y.o. female with a pmhx of pituitary microadenoma, HTN, heart murmur, obesity, GERD, who presents for evaluation of lupus. Patient was diagnosed 10 years ago when she developed arthralgia/hair loss/rash. Patient was subsequently diagnosed with lupus and started on Plaquenil. She has undergone Plaquenil eye exams every 6 monthly and has never had any issues. In the last 1 to 2 years patient developed significant Raynaud's phenomenon. She denies sicca syndrome although her mouth looks dry on the inside. Currently she got complaints of left ankle swelling which occurs most notably after standing. Of note her day involves significant standing for hours on end. Patient denies any redness or swelling of her MCPs in her hands. Patient denies any numbness tingling in her hands. No shortness of breath. Non-smoker nondrinker. Prior Rheum appts: Dr. 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 Past Medical History: Diagnosis Date Alopecia Arthritis Breast cyst 1980 GERD (gastroesophageal reflux disease) Heart murmur HTN (hypertension) Lupus (HCC) Migraine Pituitary microadenoma (HCC) Raynaud's disease Past Surgical History: Procedure Laterality Date COLONOSCOPY 05/14/2014 normal.....Dr. Cox COLONOSCOPY N/A 01/05/2022 Procedure: COLONOSCOPY; Surgeon: Isis Nevarez MD; Location: [facility] [place]; Service: General Surgery CYST REMOVAL Left cyst removed from left breast ESOPHAGOGASTRODUODENOSCOPY 05/14/2014 ....... Social History Tobacco Use Smoking status: Never Smokeless tobacco: Never Vaping Use Vaping status: Never Used Substance Use Topics Alcohol use: Never Drug use: Never Family History Problem Relation Age of Onset Diabetes Mother Hypertension Mother Diabetes Father Hypertension Father Breast cancer Maternal Aunt Allergies Allergen Reactions No Known Drug Allergies No outpatient medications have been marked as taking for the 11/23/22 encounter (Appointment) with Gail Herbert MD. Review of Systems: General Constitutional: Denied fevers, chills, anorexia, weight loss, or night sweats Eyes: denied blurry vision, + dry eyes, ++ RP ENT: denied nasal drainage, sinus pressure, nasal ulcers Mouth: denied oral ulcers, dry mouth Lymphatics: no new adenopathy in cervical, supraclavicular, axillary, inguinal regions Respiratory: no cough, SOB CV: denied palpitations, chest pain/pressure, PND, orthopnea. GI: denied abd pain, n/v/d, constipation, melena. : denied dysuria, urgency, frequency or hematuria. Skin: no rashes or lesions Musculoskeletal: as per HPI Hematologic/lmmunologic: no adenopathy, bleeding, easy bruisiality or recurrent infection. Neurology: Denied new headaches, speech/balance/coordination problems. Denied new focal numbness or weakness of extremities Psych: denied anxiety, depression or mood swings A 10 point review of systems was completed. Physical Exam: BP (!) 142/89 Pulse 87 Wt 95.3 kg (210 lb) BMI 33.89 kg/m Gen: NAD, resting comfortably,Alert, cooperative, no distress, appears stated age HEENT: NCAT, no temporal wasting, EOMI, perrl, anicteric sclerae, mmm, no op lesions Neck: supple, no thyromegaly or LAD, no bruits Lymphatics: no cervical, axillary, or inguinal adenopathy Chest: Good a/e b/l, no added sounds, no respiratory distress CV: RRR, no m/r/g, normal S1, S2 Abd: soft, nontender, nondistended, +BS, no hepatosplenomegaly Ext: no clubbing, cyanosis or edema MSK: No synovitis of the MCPs or PIPs. Crepitus of the knees no effusion or warmth. Skin: no rashes or lesions Neuro: no focal deficits, moves all four extremities Psych: Mood and affect appropriate DATA: I have reviewed lab work and imaging. Labs:reviewed. Imaging: reviewed. Health Maintenance Due Topic Date Due Tetanus: Every 10yrs Never done Depression Screening (PHQ-2/9) Never done HIV Screening Never done Hepatitis C Screening Never done Zoster Vaccines (1 of 2) Never done COVID-19 Vaccine (4 - Booster for Moderna series) 09/29/2021 Assessment & Plan Lupus - + centromere, SHIVANI, sicca, raynauds - Plan: SHIVANI, Anti-DNA Double-Stranded Antibody, C3 Complement, C4 Complement, CBC and Differential, Creatinine, serum, Urinalysis, Protein / Creatinine Ratio, Urine, Nuclear antigen antibody, Sedimentation Rate, C-reactive protein, Complete PFT with DLCO, Echocardiogram complete, CT Chest High Resolution Only, XR Knees Standing Bilateral AP/ LAT, XR Hands Bilateral Ball Catchers 2 Views, hydrOXYchloroQUINE (PLAQUENIL) 400 mg/day, Raynaud's disease without gangrene - Plan: Centromere Antibody, IgG, RNA Polymerase III Antibody IgG, Blood Sicca syndrome (HCC) - Plan: JOE Loud snoring - Plan: declined PSG Encounter for screening for other viral diseases - Plan: M. Tuberculosis by QuantiFERON, Hepatitis C Antibody, Hepatitis B Surface Antigen, Hepatitis B Surface Antibody, Hepatitis B Core Antibody, Total Centromere antibody positive - Plan: Complete PFT with DLCO, Echocardiogram complete, CT Chest High Resolution Only Left ankle swelling - suspect 2/2 ro DJD - Plan: XR Ankle Left 2 Views Low vitamin D level - Plan: Vitamin D, Total, 25-OH The patient indicates understanding of these issues and agrees with the plan. Return to clinic in 6 month(s) Telehealth appointments ok. Gail Herbert MD Turbo Operator Follow Up Manager Note: To expedite correspondence this note was generated by [employer] voice recognition software. Some grammatical or spelling errors may occur using the system. documented in this encounter [facility] 11-10-2022 Miscellaneous Notes Patient said she does not have appt with Follow Up Manager in [place] until later this month and she is almost out of her medication, asking if PCP would send rx to her mail away pharmacy? Please advise Patient has been identified by name and date of : Patient phones for refill(s): Requested Prescriptions Pending Prescriptions Disp Refills hydrOXYchloroQUINE (PLAQUENIL) 200 mg tablet 180 tablet 3 Sig: Take 2 tablets by mouth once daily. Date of last office visit in primary care: 08/24/2022, no future appt scheduled Last 2 Encounter Wt Readings: Date: Wt: 10/28/2022 96.6 kg (213 lb) 08/24/2022 92.5 kg (204 lb) Previous labs/tests for medication: Blood Pressure: BUN (mg/dL) Date Value 04/18/2022 9 01/10/2021 9 Sodium (mmol/L) Date Value 04/18/2022 138 01/10/2021 142 Last 1 Encounter BP Readings: Date: BP: 10/28/2022 128/78 Please advise. Thank you. Aruna Pires LPN documented in this encounter [facility] 10-28-2022 Miscellaneous Notes Patient notified. Please let patient know that her US is negative for blood clot. Please let me know if she would like and xray of her knee and ankle. Thank you Lori Mednia APRN.ZURDO documented in this encounter [facility] 10-28-2022 Note HNO ID: [id number] Author: Lori Medina APRN.CNP Service: ? Author Type: Nurse Practitioner Type: Progress Notes Filed: 11/01/2022 12:24 PM Note Text: CC: Patient presents with: Musculoskeletal Problem: L leg pain, knee pain, calf pain x 2 weeks HPI Aminata Cohen is a 57 year old female who presents today for left calf pain Left ankle pain and swelling intermittent starting 6 months ago without recent or previous injury. Just seemed to wake up with the pain.Then started with increased knee pain to left knee two weeks ago and has had difficulty bending she feels from swelling and pain. Started with calf pain 1 week ago. States it feels very tight and is tender too touch. No history of blood clots, recent surgeries, or recent travel. Denies fever, shortness of breath, chest pain, or skin changes. REVIEW OF SYSTEMS General: no fevers, no chills, no night sweats, no recurrent infections, no change in appetite, no change in energy, and no significant changes in weight Respiratory: no cough, no wheezing, no shortness of breath, no hemoptysis Cardiovascular: no chest pain, no chest pressure, no palpitations, and no swelling Neurologic: No headache, weakness, numbness, dizziness, memory loss, syncope. PAST MEDICAL HISTORY Diagnosis Date Anemia Arthritis Esophagitis, unspecified GERD (gastroesophageal reflux disease) Hypertension Leukopenia Lupus (systemic lupus erythematosus) (HCC) diagnosed by Dr. Silverio Migraine headache without aura Neutropenia (HCC) Pituitary adenoma (HCC) Raynaud's phenomenon PAST SURGICAL HISTORY Procedure Laterality Date BREAST CYST LEFT, FLUID 1988 ESOPHAGOGASTRODUODENOSCOPY TRANSORAL DIAGNOSTIC 03/10/2012 EGD PAST SURGICAL HISTORY OF 08/08/2010 EGD PAST SURGICAL HISTORY OF 1987 Removal of Benign Left breast lump ALLERGIES Seasonal Allergies MEDICATIONS desloratadine (CLARINEX) 5 mg tablet Take 1 tablet by mouth once daily. omeprazole (PRILOSEC) 40 mg capsule Take 1 capsule by mouth once daily. NIFEdipine ER (PROCARDIA XL) 30 mg 24 hr tablet Take 1 tablet by mouth once daily. as directed diclofenac (VOLTAREN ARTHRITIS PAIN) 1 % topical gel Apply to the right knee up to 4 times a day as needed hydrOXYchloroQUINE (PLAQUENIL) 200 mg tablet Take 2 tablets by mouth once daily. naproxen sodium (ALEVE) 220 mg tablet Take 2 tablets by mouth daily with breakfast. TAKE WITH FOOD cholecalciferol (VITAMIN D3) 1,000 unit tab tablet Take 1 tablet by mouth once daily. FAMILY HISTORY Problem Relation Age of Onset Diabetes Mother Hypertension Mother other (thalassemia minor trait) Mother other (Colon Polyps removed) Mother Prostate Cancer Father Diabetes Father Hypertension Father Hyperlipidemia Father Colon Cancer Maternal Aunt No Ocular Disease Maternal Aunt Hypertension Sister Hypertension Brother Stroke Maternal Grandfather Hypertension Sister Social History Tobacco Use Smoking status: Never Smokeless tobacco: Never Substance Use Topics Alcohol use: No Drug use: No PHYSICAL EXAM BP 128/78 Pulse 72 Resp 16 Wt 96.6 kg (213 lb) LMP 07/20/2013 (Approximate) BMI 35.17 kg/m? General Appearance: well appearing, in no acute distress, alert Skin: Skin color, texture, turgor normal for age; Eyes: conjunctiva pink and moist, no icterus, sclera white, non-injected Lungs: Lungs clear to auscultation. No wheezing, rhonchi, rales. Heart: RRR without murmur, gallop, or rubs. No ectopy Musculoskeletal: Bilateral knee- normal to inspection. Tenderness:reported with palpation of left upper calf. Flexion:Limitation: yes to left knee, Pain:Yes; with flexion of left knee Extension:Limitation:No, Pain:No. Laxity: No Left ankle without deformity or tenderness, full ROM Lower extremities: slight nonpitting edema to LLE, good distal pulses. Muscle strength- 5/5 lower, bilaterally Health maintenance reviewed with patient: HEPATITIS B(1 of 3 - 3-dose series) Never done HIV SCREENING Never done DTAP,TDAP,TD(1 - Tdap) Never done SHINGRIX VACCINE(1 of 2) Never done MAMMOGRAM due on 05/03/2021 COVID-19 VACCINE(4 - Booster for Moderna series) due on 09/29/2021 INFLUENZA(1) due on 08/24/2023 DIABETES SCREEN due on 04/18/2025 COLORECTAL CANCER SCREENING due on 01/05/2027 LIPID SCREEN due on 01/10/2027 PAP TESTING due on 06/09/2027 HPV TESTING due on 06/09/2027 DEPRESSION ASSESSMENT Completed HEPATITIS C SCREENING Completed DATA REVIEWED: No new labs ASSESSMENT/PLAN: 1. Pain of left calf - ICD9: 729.5, ICD10: M79.662 (primary diagnosis) - patient very concerned with possible blood clot so will do US. Discussed with patient it is possible from walking abnormally because of the ankle pain. Patient declined for further evaluation of this at this time. - US LEG VEIN DVT UNL VAS LAB - follow up depending on results 2. Lower extremity edema - ICD9: 782.3, ICD10: R60.0 As above - US LEG VEI (more content not included)... [facility] 10-12-2022 History of Present illness Narrative Patient ID: Aminata Cohen is a 57 y.o. female Subjective: Aminata Cohen presents for follow-up of a non-secreting Pituitary Macroadenoma. Patient's last MRI completed 03/02/22 demonstrated a stable pituitary macroadenoma Enlarged pituitary gland measuring 1.0 x 0.9 x 1.3 cm, compatible with a pituitary adenoma, unchanged compared to the prior MRI of 2016. compared to previous measurement 1.0 x 1.1 x 1.0 cm. Patient was previously followed by Dr. Bradford, since diagnosed in 2004. She was recently diagnosed with lupus at [facility]. Overall, she has been feeling well. She complains of some urinary urgency, but denies dysuria. Current Outpatient Medications Medication Sig Dispense Refill ascorbic acid, vitamin C, (VITAMIN C) 1000 MG tablet Take 1 (one) tablet (1,000 mg total) by mouth daily . hydroxychloroquine (PLAQUENIL) 200 mg tablet Take 1 (one) tablet (200 mg total) by mouth daily . 1 loratadine (CLARITIN) 10 mg tablet 1 (one) tablet (10 mg total) as needed . multivitamin (THERAGRAN) per tablet Take 1 (one) tablet by mouth daily . NIFEdipine (PROCARDIA XL) 30 MG 24 hr tablet Take 1 (one) tablet (30 mg total) by mouth daily as needed. 90 tablet 3 omeprazole (PRILOSEC) 40 MG capsule Take 1 (one) capsule (40 mg total) by mouth daily. 90 capsule 3 No current facility-administered medications for this visit. Review of Systems: Review of Systems Constitutional: Positive for fatigue (varies day to day). Negative for appetite change and unexpected weight change. HENT: Negative for ear pain. Eyes: Negative for photophobia and visual disturbance. Respiratory: Negative for cough and shortness of breath. Cardiovascular: Negative for chest pain and leg swelling. Gastrointestinal: Negative for abdominal pain, constipation, diarrhea, nausea and vomiting. Endocrine: Negative for polydipsia, polyphagia and polyuria. Genitourinary: Positive for urgency. Negative for dysuria, flank pain and frequency. Musculoskeletal: Positive for arthralgias, joint swelling and myalgias (leg cramps in calves/hamstrings.). Skin: Negative for wound. Neurological: Positive for dizziness and light-headedness (reports change in gait at times.). Negative for numbness and headaches. Reports walking sideways at times. Psychiatric/Behavioral: Negative for agitation and sleep disturbance. The patient is not nervous/anxious. The following portions of the patient's history were reviewed and updated as appropriate: allergies, current medications, past family history, past medical history, past social history, past surgical history and problem list. Objective: Physical Exam: BP 134/85 Pulse 79 Wt 96.8 kg (213 lb 8 oz) BMI 34.46 kg/m Wt Readings from Last 3 Encounters: 10/12/22 96.8 kg (213 lb 8 oz) 06/30/22 95.5 kg (210 lb 8 oz) 04/09/22 91 kg (200 lb 9.6 oz) Physical Exam Constitutional: Appearance: She is well-developed. HENT: Head: Normocephalic and atraumatic. Eyes: Conjunctiva/sclera: Conjunctivae normal. Pupils: Pupils are equal, round, and reactive to light. Neck: Thyroid: No thyromegaly. Cardiovascular: Rate and Rhythm: Normal rate and regular rhythm. Heart sounds: Murmur heard. Pulmonary: Effort: Pulmonary effort is normal. Breath sounds: Normal breath sounds. Musculoskeletal: General: Normal range of motion. Cervical back: Normal range of motion and neck supple. Skin: General: Skin is warm and dry. Neurological: Mental Status: She is alert and oriented to person, place, and time. Psychiatric: Behavior: Behavior normal. Thought Content: Thought content normal. Judgment: Judgment normal. Lab Review Lab Results Component Value Date WBC 2.67 (L) 10/02/2022 HGB 11.5 (L) 10/02/2022 HCT 37.4 10/02/2022 MCV 89.3 10/02/2022 PLT 223 10/02/2022 Chemistry Component Value Date/Time NA 141 10/02/2022 0753 K 4.3 10/02/2022 0753 CL 108 10/02/2022 0753 BUN 16 10/02/2022 0753 BUN 13 11/26/2018 0000 CREATININE 0.78 10/02/2022 0753 CREATININE 0.84 11/26/2018 0000 Component Value Date/Time CALCIUM 9.1 10/02/2022 0753 ALKPHOS 76 10/02/2022 0753 ALKPHOS 73 11/26/2018 0000 AST 19 10/02/2022 0753 AST 24 11/26/2018 0000 ALT 25 10/02/2022 0753 ALT 20 11/26/2018 0000 BILITOT 0.3 10/02/2022 0753 BILITOT 0.3 11/26/2018 0000 Date: 10/02/22 *labs reviewed 10/13/22 Glucose: 89 Creat: 0.78; eGFR: 89 AST: 19; ALT: 25 K: 4.3 CBC: WBC:2.67; Hgb: 11.5; Hct: 37.4; Plt: 223 TSH: 2.14 ; FreeT4: 0.9 FSH: 95 LH: 38.1 Prolactin: 7.7 25-OH Vitamin D: 33 04/18/22 Creat: 0.72 K: 4.0 CBC: WBC:2.56; Hgb: 11.5; Hct: 38.4; Plt: 225 TSH: 2.80 ; FreeT4: 0.9 Cortisol: 7.0 Prolactin: 15.5 FSH: 86.2 LH: 48.1 25-OH Vitamin D: 36.9 01/10/22 Hgb A1c: 5.5% Creat: 0.90; eGFR: 75 AST: 23; ALT: 18 K: 4.2 CBC: WBC:2.69; Hgb: 11.6; Hct: 37.9; Plt: 226 Tchol: 225; Tri ; HDL: 76 ; LDL: 129 01/10/21 TSH: 2.480 09/23/20 TSH: 2.620 06/13/18 TSH 2.040, FT4--1.1 Prolactin 10.0 Cortisol 4.7 sodium 138, potassium 4.1, creatinine 0.82, estimated GFR greater than 60 Calcium 9.2, albumin 4.2 AST 27, ALT 19 03/22/20 TSH: 2.430; Free T4: 1.0 Prolactin: 10.8 Cortisol: 10.9 11/30/17 TSH 2.620, free T4--1.0 Prolactin 11.4 Sodium 138, potassium 4.0 Creatinine 0.83, estimated GFR greater than 60 AST 28, ALT 22 WBC 2.17, hemoglobin 11.8, hematocrit 38.5, platelet count 237,000 06/05/17 TSH 2.49, FT4--0.9 Sodium 138, potassium 3.9 Creatinine 0.66, estimated GFR greater than 60 AST 18, ALT 31 FSH 115.8, LH 44.8, prolactin 13.2 10/14/16: TSH 2.036 Creatinine 0.69, potassium 3.7 AST 18, ALT 15 Rheumatoid factor 21, CLINICAL MENTAL HEALTH COUNSELOR antibody positive CBC: WBC 2.2, hemoglobin 11.7, hematocrit 37.2, platelet count 229,000 06/01/16 Creat: 0.80 AST: 27; ALT: 16 K: 4.1 Na: 139 CBC: WBC:1.70; Hgb: 11.3; Hct: 35.1; Plt: 275 TSH: 1.70 ; FreeT4: 1.3 LH: 61; FSH: 85.9 Cortisol: 7.3 Prolactin: 9.6 11/10/15 Creat: 0.97 Sodium: 140 Potassium: 4.1 AST:21; ALT:21 CBC: WBC: 1.74; Hgb: 11.9; Hct: 37.0; Plt: 226. TSH: 3.270; FreeT4: 1.0 Prolactin: 23.3 Cortisol: 20 Radiology Review: 03/03/22 EXAMINATION: MR PITUITARY WITH AND WITHOUT CONTRAST HISTORY: ORDERING SYSTEM PROVIDED HISTORY: Pituitary macroadenoma (HCC), TECHNOLOGIST PROVIDED HISTORY: Illness/Other Reason for exam: dizziness, off balanced, blurred vision, headaches sx x 3 months Encounter Type: Initial Additional signs and symptoms: n/a ORDERING SYSTEM PROVIDED DIAGNOSIS CODES: D35.2 Pituitary macroadenoma (HCC) COMPARISON: Brain MRI 06/04/2016. TECHNIQUE: Multiplanar multisequence MR imaging of the head was performed prior to and following administration of intravenous contrast. CONTRAST: GADOTERATE MEGLUMINE 0.5 MMOL/ML (376.9 MG/ML) INTRAVENOUS SOLUTION - 17 mL, FINDINGS: No restricted diffusion. No acute hemorrhage, mass effect, midline shift or extra-axial fluid collection. Moderate patchy areas of increased FLAIR signal seen within the periventricular and subcortical white matter. Expected flow voids are seen within the intracranial internal carotid, vertebral and basilar arteries. Cerebellopontine angles and internal auditory canals are unremarkable. Orbits and globes are unremarkable. Expected signal voids are seen within paranasal sinuses and mastoid air cells. Pituitary gland is enlarged with a convex superior margin abutting the optic chiasm, unchanged in size or appearance. The pituitary gland measures 1.0 x 0.9 x 1.3 cm, unchanged. No cavernous sinus invasion. No new areas of abnormal enhancement. IMPRESSION: 1. Enlarged pituitary gland measuring 1.0 x 0.9 x 1.3 cm, compatible with a pituitary adenoma, unchanged compared to the prior MRI of 2016. Contact of the optic chiasm is stable. No cavernous sinus invasion. 2. Moderate nonspecific FLAIR signal abnormalities of the supratentorial white matter, compatible with small vessel ischemic changes. DMC/ges Examination: MRI BRAIN W/O&W/ CONT CLINICAL HISTORY: Followup pituitary macroadenoma. MRI brain without with gadolinium attention pituitary gland 06/04/2016 Comparison: MRI brain attention pituitary gland 06/07/2014. MRI BRAIN WITHOUT AND WITH CONTRAST ATTENTION PITUITARY: TECHNIQUE: Following fast spin echo T2 sagittal localizer sequence through the entire brain, gradient echo 3D T2* coronal images were obtained through the sella turcica. Pre and post-gadolinium fat saturated high resolution T1 axial and coronal images were obtained through the region of the sella turcica bilateral. Axial EPI diffusion and FLAIR sequence imaging was obtained through the entire brain. A total of 8 mL MultiHance DTPA IV was administered. FINDINGS: The visualized paranasal sinuses, mastoid air cells and intraorbital contents are unremarkable. Normal vascular flow void is seen both in the anterior and posterior circulation as well as the dural venous sinuses. Brainstem and posterior fossa contents are unremarkable. Normal bone marrow signal characteristics are seen throughout the skull. Pituitary macroadenoma is not appreciably changed in configuration or size, seen as a homogeneously enhancing mass in the sella turcica, measuring 10 x 11 x 10 mm. Supratentorially, CSF spaces and cerebral sulci are within normal limits. No mass, hemorrhage or midline shift is seen. Confluent bilateral periatrial FLAIR sequence abnormalities appear stable when compared to previous exam as well as multifocal small bifrontal and biparietal subcortical and periventricular white matter FLAIR sequence abnormalities. There is no extra-axial fluid collection. Following gadolinium administration, no focus of abnormal enhancement is seen. IMPRESSION: 1. Unchanged pituitary macroadenoma. 2. Signal abnormalities described in the periventricular and subcortical white matter are typically seen as sequela from microangiopathic ischemic disease versus demyelinating/dysmyelinating processes. 3. Otherwise unremarkable MRI of the brain without and with gadolinium. Interpreting Physician: MARIANO FLORES M.D. Examination: CT NECK W/CONTRAST CLINICAL HISTORY: Right-sided neck swelling. SPIRAL CT SCAN OF THE NECK WITH INTRAVENOUS CONTRAST ON 10/26/2016 Spiral scans were obtained from the base of skull through the suprasternal notch following intravenous injection of 50 cc of Isovue 370 followed by 50 cc of saline. A radiopaque marker was applied over the area of interest. The inferior portion of the brain visualized is unremarkable in appearance. There are degenerative changes involving the upper portion of the thoracic spine visualized. There is reversal of the normal cervical lordosis without subluxation. The intervertebral disc spaces are fairly well-maintained. No acute osseous abnormalities are identified. The paranasal sinuses and mastoid air cells as visualized are unremarkable. A portion of the lungs visualized are unremarkable in appearance bilaterally. No acute orbital abnormalities are identified. The pterygopalatine fossa are normal in appearance bilaterally. The fossa of [place] are bilaterally symmetric. The parotid glands are normal in appearance bilaterally. A skin marker overlies the posterior aspect of the right parotid gland slash sternocleidomastoid muscle however no discrete abnormality is seen in this area either involving the parotid gland or in the adjacent soft tissues. No lymphadenopathy or other soft tissue mass or fluid collection is present. The submandibular glands are normal in appearance bilaterally. The larynx as visualized is normal in appearance. The thyroid gland is normal in appearance. No supraclavicular lymphadenopathy or other cervical adenopathy is identified. There are multiple lymph nodes seen involving both axilla thought to be within the limits of variation. IMPRESSION: 1. Reversal of the normal cervical lordosis without subluxation. There are degenerative changes involving the upper thoracic spine with marginal vertebral body osteophyte formation. 2. The skin marker placed along the right side of the neck overlies the posterior aspect of the right parotid gland/ sternocleidomastoid muscle. No discrete parotid gland abnormalities are identified. No adjacent lymphadenopathy or other soft tissue mass is present. Assessment: Dx: 1. Pituitary macroadenoma (HCC) Comprehensive Metabolic Panel T4, Free TSH Lipid Panel Hemoglobin A1c CBC and Differential Prolactin Vitamin D 25 Hydroxy (Total, 25-OH) 2. Lupus (HCC) 3. Vitamin D deficiency Vitamin D 25 Hydroxy (Total, 25-OH) 4. Fatigue, unspecified type Comprehensive Metabolic Panel T4, Free TSH Hemoglobin A1c Aminata Cohen presents for follow-up of a non-secreting Pituitary Macroadenoma. Patient's last MRI completed 03/02/22 demonstrated a stable pituitary macroadenoma measuring 1.0 x 0.9 x 1.3 cm. Patient was previously followed by Dr. Bradford, since diagnosed in 2004. Patient has had no specific symptoms, no signs of optic chiasm involvement. She has been diagnosed with lupus. Last eye exam within the last 1 year. She has an exam every 6 months she states. Hypogonadism: Positive LH and FSH are elevated consistent with menopause. Patient previously reported no menstrual cycle for the last 12 months. Hypothyroidism: Negative TSH 2.040, Free T4 1.1; no thyroxine replacement. Adrenal Insufficiency: Negative Currently no symptoms, no replacement medications. Labs reviewed. Plan: Continue to monitor. Diabetes Insipidus: Negative Not present in this patient. Prolactin elevation: Negative Patient with normal prolactin of 7.7 Diagnosed with lupus History of vitamin D deficiency. Take 1,000 international units daily. Iron Deficiency anemia Chronic leukopenia. Evaluated by hematology in past. Plan: 1. Rx changes: none. Continue to monitor. Labs ordered. Needs to continue to have regular eye exam. Check labs annually Check MRI PRN. 2. Follow up: 6 months Orders Placed This Encounter Procedures Comprehensive Metabolic Panel T4, Free TSH Lipid Panel Hemoglobin A1c CBC and Differential Prolactin Vitamin D 25 Hydroxy (Total, 25-OH) documented in this encounter [facility] 08-24-2022 History of Present illness Narrative Images from the original note were not included. This note was created using PagPop. Subjective Aminata Cohen is a 57 year old female. HISTORY Aminata Cohen is a 57 year old lady here for yearly exam and follow up appointment. Needed concerns addressed and FMLA form completed. Noted odor when urine more concentrated. Normally drinks plenty of water. No UTI symptoms Noted spots on arms. 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 Was told was eczema. Really dry skin. Noted takes hot baths nightly after work. Noted B12 high. Reviewed labs. Was 1407 to 1586 range past 3years. Dizziness if turns head too fast while walking then vears to one side or the other. Asked about her cholesterol--see below. Dr. Goins retired so in process of transition to new Follow Up Manager. Stay with [facility] for now, but hoping to find provider in [place]. FMLA paperwork completed for patient since her new workforce investment act career manager would no longer complete FMLA forms. PAST MEDICAL HISTORY Diagnosis Date Anemia Arthritis Esophagitis, unspecified GERD (gastroesophageal reflux disease) Hypertension Leukopenia Lupus (systemic lupus erythematosus) (HCC) diagnosed by Dr. Silverio Migraine headache without aura Neutropenia (HCC) Pituitary adenoma (HCC) Raynaud's phenomenon Current Outpatient Medications Medication Sig omeprazole (PRILOSEC) 40 mg capsule Take 1 capsule by mouth once daily. NIFEdipine ER (PROCARDIA XL) 30 mg 24 hr tablet Take 1 tablet by mouth once daily. as directed diclofenac (VOLTAREN ARTHRITIS PAIN) 1 % topical gel Apply to the right knee up to 4 times a day as needed hydrOXYchloroQUINE (PLAQUENIL) 200 mg tablet Take 2 tablets by mouth once daily. naproxen sodium (ALEVE) 220 mg tablet Take 2 tablets by mouth daily with breakfast. TAKE WITH FOOD cyclobenzaprine (FLEXERIL) 10 mg tablet Take 0.5-1 tablets by mouth three times daily as needed. Plan to take just at bedtime since sedating and during the day only if severe (Patient not taking: Reported on 01/10/2021 ) loratadine (CLARITIN) 10 mg tablet Take 1 tablet by mouth once daily. cholecalciferol (VITAMIN D3) 1,000 unit tab tablet Take 1 tablet by mouth once daily. No current facility-administered medications for this visit. ALLERGIES Allergen Reactions Seasonal Allergies Unknown FAMILY HISTORY Problem Relation Age of Onset Diabetes Mother Hypertension Mother other (thalassemia minor trait) Mother other (Colon Polyps removed) Mother Prostate Cancer Father Diabetes Father Hypertension Father Hyperlipidemia Father Colon Cancer Maternal Aunt No Ocular Disease Maternal Aunt Hypertension Sister Hypertension Brother Stroke Maternal Grandfather Hypertension Sister Social History Tobacco Use Smoking status: Never Smokeless tobacco: Never Substance Use Topics Alcohol use: No Drug use: No Review of Systems Objective BP 136/86 Pulse 78 Temp (!) 35.8 C (96.4 F) Resp 18 Wt 92.5 kg (204 lb) LMP 07/20/2013 (Approximate) SpO2 100% BMI 33.69 kg/m Physical Exam Constitutional: Appearance: Normal appearance. HENT: Head: Normocephalic. Eyes: Conjunctiva/sclera: Conjunctivae normal. Cardiovascular: Rate and Rhythm: Normal rate and regular rhythm. Heart sounds: Normal heart sounds. Pulmonary: Effort: Pulmonary effort is normal. Breath sounds: Normal breath sounds. Musculoskeletal: Feet: Skin: General: Skin is warm and dry. Comments: Dry skin noted; flaky dry skin; worse on hands. noted patches of round scaly thicker skin Neurological: General: No focal deficit present. Mental Status: She is alert and oriented to person, place, and time. Psychiatric: Mood and Affect: Mood normal. Behavior: Behavior normal. Thought Content: Thought content normal. Judgment: Judgment normal. Component Latest Ref Rng & Units 10/11/2020 01/10/2021 01/10/2022 04/18/2022 06/13/2022 WBC 3.70 - 11.00 k/uL 3.26 (L) 2.69 (L) 2.56 (L) RBC 3.90 - 5.20 m/uL 4.11 4.22 4.26 Hemoglobin 11.5 - 15.5 g/dL 11.3 (L) 11.6 11.5 Hematocrit 36.0 - 46.0 % 36.4 37.9 38.4 MCV 80.0 - 100.0 fL 88.6 89.8 90.1 MCH 26.0 - 34.0 pg 27.5 27.5 27.0 MCHC 30.5 - 36.0 g/dL 31.0 30.6 29.9 (L) RDW-CV 11.5 - 15.0 % 13.1 12.6 13.2 Platelet Count 150 - 400 k/uL 218 226 225 MPV 9.0 - 12.7 fL 11.0 11.7 12.0 Neut% % 46.3 43.5 44.9 Abs Neut (ANC) 1.45 - 7.50 k/uL 1.50 1.17 (L) 1.15 (L) Lymph% % 41.4 43.5 42.2 Abs Lymph 1.00 - 4.00 k/uL 1.35 1.17 1.08 [place]% % 8.3 10.0 8.6 Abs [place] <0.87 k/uL 0.27 0.27 0.22 Eosin% % 3.4 2.2 3.1 Abs Eosin <0.46 k/uL 0.11 0.06 0.08 Baso% % 0.6 0.4 0.8 Abs Baso <0.11 k/uL <0.03 <0.03 <0.03 Immature Gran % % 0.4 0.4 IMMATURE GRANS (ABS) <0.10 k/uL <0.03 <0.03 NRBC /100 WBC 0.0 0.0 Absolute nRBC <0.01 k/uL <0.01 <0.01 <0.01 DTYPE Auto Auto Nucleated Reds 0 /100 WBC 0.0 Diff Type Auto Diff Protein, Total 6.3 - 8.0 g/dL 7.5 7.2 Albumin 3.9 - 4.9 g/dL 4.4 4.3 Calcium 8.5 - 10.2 mg/dL 9.2 9.7 9.4 Bilirubin, Total 0.2 - 1.3 mg/dL 0.2 0.3 Alkaline Phosphatase 34 - 123 U/L 83 75 AST 13 - 35 U/L 23 26 ALT 7 - 38 U/L 18 17 Glucose 74 - 99 mg/dL 81 86 86 BUN 7 - 21 mg/dL 9 11 9 Creatinine 0.58 - 0.96 mg/dL 0.85 0.90 0.72 Sodium 136 - 144 mmol/L 142 138 138 Potassium 3.7 - 5.1 mmol/L 4.0 4.2 4.0 Chloride 97 - 105 mmol/L 106 (H) 101 102 CO2 22 - 30 mmol/L 26 26 25 Anion Gap 9 - 18 mmol/L 10 11 11 eGFR >=60 mL/min/1.73m 75 98 eGFR- >60 eGFR-All Other Races . >60 Cholesterol, Total <200 mg/dL 225 (H) Triglyceride <150 mg/dL 102 HDL Cholesterol >39 mg/dL 76 Non HDL Cholesterol <130 mg/dL 149 (H) Fasting Time hrs 12 VLDL Cholesterol <30 mg/dL 20 TC:HDL Ratio <5.10 2.96 LDL Cholesterol <100 mg/dL 129 (H) LDL:HDL Ratio <2.54 1.70 Total Cholesterol, Nonfasting <200 mg/dL 285 (H) Triglycerides, Nonfasting <150 mg/dL 109 HDL Cholesterol, Nonfasting >39 mg/dL 100 LDL Cholesterol, Nonfasting <100 mg/dL 163 (H) Non HDL Cholesterol, Nonfasting <130 mg/dL 185 (H) VLDL Cholesterol, Nonfasting <30 mg/dL 22 Total Chol/HDL Ratio, Nonfasting <5.10 mg/dL 2.85 LDL/HDL Ratio, Nonfasting <2.54 mg/dL 1.63 Protein, Urine Random 0 - 20 mg/dL <4 Creatinine, Ur Random (UCRR) 20 - 300 mg/dL 47.1 Protein/Creat Ratio <0.2 Unable to calculate because one or more components used in calculation is outside . . . Hemoglobin A1C 4.3 - 5.6 % 5.5 Estimated Average Glucose mg/dL 111 ABO B Rh(D) Positive TSH 0.270 - 4.200 mIU/L 2.480 2.880 Magnesium 1.7 - 2.3 mg/dL 2.1 Prolactin 4.5 - 26.8 ng/mL 15.5 FSH See comment mIU/mL 86.2 LH See comment mIU/mL 48.1 Free T4 0.9 - 1.7 ng/dL 0.9 Cortisol 4.8 - 19.5 ug/dL 7.0 Vitamin D 25 Hydroxy 31.0 - 80.0 ng/mL 36.9 Vitamin B12 232 - 1,245 pg/mL 1,407 (H) Vitamin B6, Plasma 20.0 - 125.0 nmol/L 122.4 Folate >4.7 ng/mL >20.0 EBV NA Ab, Qual RNA Polymerase III Ab 0 - 19 Units 54 (H) SHIVANI by EIA, Qual Negative Positive (A) The 10-year ASCVD risk score (Daniela ALVARADO, et al., 2019) is: 4.1% Values used to calculate the score: Age: 57 years Sex: Female Is Non- : Yes Diabetic: No Tobacco smoker: No Systolic Blood Pressure: 136 mmHg Is BP treated: No HDL Cholesterol: 76 mg/dL Total Cholesterol: 225 mg/dL Assessment and Plan Encounter Diagnosis ICD-10-CM 1. Systemic lupus erythematosus, unspecified SLE type, unspecified organ involvement status (HCC) M32.9 2. Dry skin dermatitis L85.3 3. Hypercholesterolemia E78.00 4. Neutropenia, unspecified type ([facility]) D70.9 5. Class 1 obesity due to excess calories with body mass index (BMI) of 33.0 to 33.9 in adult, unspecified whether serious comorbidity present E66.09 Z68.33 6. Dizziness R42 Avoid turning head too fast. Consider PT. Above issues addressed with patient. Multiple questions and concerns addressed. Patient involved in shared decision making for management of medical issues. Continue follow up with Rheumatology. History and medications reviewed. Epic updated as needed Refills and/or prescriptions taken care of and meds adjusted as indicated after reviewed history, exam and labs. Health Maintenance reviewed. Updated record and/or ordered tests as recorded. Encouraged on efforts at healthy diet and regular exercise and adequate sleep. Needs to keep working on diet and exercise with lifestyle changes for effective weight loss as well as prevention of DM, and control of BP and lipids. FMLA form completed during appointment. I spent a total of 57 minutes on the date of the service which included [id number] patient care, completing clinical documentation, performing a medically appropriate examination, counseling and educating the patient/family/caregiver, and communicating results to the patient/family/caregiver. Rogelio Thomas MD documented in this encounter [facility] 08-18-2022 Miscellaneous Notes Per Patient, Dr. Shine has retired. Aminata is comfortable waiting to complete FMLA forms until her appointment on 08/24/[address] Thomas. Mariela Brady LPN Noted that Dr. Goins had done FMLA forms before. Usually have appointment to complete form for patient now to make sure have all the answers done appropriately not seen since December 2021 by Marii . [place] 09/2020. Has appointment 08/24--can form wait till then? If not, can find appointment sooner (TV if cannot do Zoom VV--able to do even if does not have MyChart a long as she has Zoom on a device) I do needs and FMLA form to complete since I just have the one from [facility] for reference. Patient calls back to check on status of request with same notification as below that she needs paperwork filled out as work is asking her for the completed paperwork. Notified patient that provider is out of the office until Wednesday so wouldn't be addressed until after that. Patient verbalized understanding. Valentine Paredes RN Patient calling back and asking about the status of this request. Patient states that she needs the paperwork to be filled out. Patient's job keeps asking her about paperwork. Please review and advise, Holley Morgan RN Pt is calling to check status on filling out and make sure you have received the paperwork. Please advise pt on her phone with a message if this has been received and where this is at. She is at work now. Freda Birch LPN Patient calls and states that her workforce investment act career manager retired. Follow Up Manager was the one who was filling out her FMLA papers. Patients states that she was told that PCP now has to fill FMLA papers now. Patient states that paperwork was faxed over to provider earlier this week to look at and fill out. Patient asking if this was received and if provider will be able to fill out paperwork. Please call patient with status of this. Please review and advise, Holley Morgan RN documented in this encounter [facility] 06-30-2022 History of Present illness Narrative Images from the original note were not included. BREAST CONSULT HISTORY & PHYSICAL EXAMINATION Patient Name: Aminata Cohen MR #: [id number] : 1965 Physicians: Rogelio Thomas MD (Family); Lisette Ramos* (Referring) History of Present Illness: The patient is a 57 y.o. female past medical history of left breast cyst, hypertension, pituitary microadenoma and Raynaud's disease presenting with right breast mass. Patient reports that she has appreciated a sensation of a mass in the right breast for 3 years. Denies any significant growth or change in it. 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 She was referred for surgical evaluation because she continues to appreciate and palpate a mass when she showering and its causing her to have anxiety. Family history is notable for breast cancer and a maternal aunt Risk Factors Age of menarche at 12 years Age of menopause at 49} years. CLOCK MAKER History: She is G 0 P 0 M 0 A 0 with age at first delivery being N/A years. History of nursing: N/A. control pills: Yes. Hormone replacement therapy: No. Caffeine intake yes History of prior breast biopsy yes History of prior breast cancer no Family History : Breast cancer yes maternal aunt Ovarian Cancer no Endometrial cancer no Family History of breast disease no History: I have reviewed the PMHx, PSHx, SHx, FHx in EMR with the patient during this encounter face to face and patient agrees with the documentation Past Medical History: Diagnosis Date Alopecia Arthritis Breast cyst 1981 GERD (gastroesophageal reflux disease) Heart murmur HTN (hypertension) Lupus (HCC) Migraine Pituitary microadenoma (HCC) Raynaud's disease Past Surgical History: Procedure Laterality Date COLONOSCOPY 05/14/2014 normal.....Dr. Cox COLONOSCOPY N/A 01/05/2022 Procedure: COLONOSCOPY; Surgeon: Isis Nevarez MD; Location: [facility] [place]; Service: General Surgery CYST REMOVAL Left cyst removed from left breast ESOPHAGOGASTRODUODENOSCOPY 05/14/2014 ....... Family History Problem Relation Age of Onset Diabetes Mother Hypertension Mother Diabetes Father Hypertension Father Breast cancer Maternal Aunt Social History Socioeconomic History Marital status: Single Tobacco Use Smoking status: Never Smokeless tobacco: Never Vaping Use Vaping Use: Never used Substance and Sexual Activity Alcohol use: Never Drug use: Never Allergy Information: I have reviewed the patient's allergies. No known drug allergies Home Medications: Outpatient Medications as of 06/30/2022 Medication Sig ascorbic acid, vitamin C, (VITAMIN C) 1000 MG tablet Take 1 (one) tablet (1,000 mg total) by mouth daily . hydroxychloroquine (PLAQUENIL) 200 mg tablet Take 1 (one) tablet (200 mg total) by mouth daily . loratadine (CLARITIN) 10 mg tablet 1 (one) tablet (10 mg total) as needed . multivitamin (THERAGRAN) per tablet Take 1 (one) tablet by mouth daily . NIFEdipine (PROCARDIA XL) 30 MG 24 hr tablet Take 1 (one) tablet (30 mg total) by mouth daily as needed. omeprazole (PRILOSEC) 40 MG capsule Take 1 (one) capsule (40 mg total) by mouth daily. Review of Systems: Review of Systems Physical Examination: Vital Signs: BP 126/82 (BP Location: Right arm, Patient Position: Sitting, BP Cuff Size: X-large Adult) Pulse 75 Resp 16 Wt 95.5 kg (210 lb 8 oz) SpO2 95% BMI 33.98 kg/m Physical Exam Constitutional: Appearance: Normal appearance. HENT: Head: Normocephalic. Nose: Nose normal. Eyes: Pupils: Pupils are equal, round, and reactive to light. Cardiovascular: Rate and Rhythm: Normal rate. Pulses: Normal pulses. Chest: Breasts: Right: Mass present. No nipple discharge or skin change. Left: No mass, nipple discharge or skin change. Abdominal: Palpations: Abdomen is soft. Tenderness: There is no abdominal tenderness. Musculoskeletal: General: Normal range of motion. Cervical back: Normal range of motion. Lymphadenopathy: Upper Body: Right upper body: No axillary adenopathy. Left upper body: No axillary adenopathy. Skin: General: Skin is warm. Neurological: General: No focal deficit present. Mental Status: She is alert. Psychiatric: Mood and Affect: Mood normal. Thought Content: Thought content normal. Laboratory and Additional Data Reviewed: Laboratory 06/30/22 9:45 AM Imaging Bilateral mammogram with tomosynthesis, date of exam 06/09/2022 Findings There are scattered areas of fibroglandular density. No dominant mass, s suspicious cluster of calcifications or architectural distortion is demonstrated in either breast. Overall no significant change compared to prior exam. Impression BI-RADS 1 negative Right breast ultrasound date of exam 06/16/2022 Right breast ultrasound demonstrates dense fibroglandular parenchyma. There is no definitive cystic or solid mass. There is no abnormal vascularity or color Doppler evaluation Impression: BI-RADS 1 negative Pathology-none Assessment and Plan: The patient is a 57 y.o. female past medical history of left breast cyst, hypertension, pituitary microadenoma and Raynaud's disease presenting with right breast mass. I can subtly feel an irregular area in the fatty tissue at the 9 o'clock position of the right breast. Discussed with the patient though that based on her ultrasound and her mammogram there is no concerning findings This is likely irregular fatty tissue. Educated her that this does not put her at risk of any breast cancer. Did discuss with her surgical excision. Risk and possible complications were discussed. Patient would like to consider surgical excision and talk with her family patient to call the office if she decides to proceed with surgical excision Total time 30 minutes, greater than 50% spent [id number] with the patient obtaining history, performing exam reviewing her outside imaging and coordinating care documented in this encounter [facility] 04-09-2022 History of Present illness Narrative Patient ID: Aminata Cohen is a 56 y.o. female Subjective: Aminata Cohen presents for follow-up of a non-secreting Pituitary Macroadenoma. Patient's last MRI completed 03/02/22 demonstrated a stable pituitary macroadenoma Enlarged pituitary gland measuring 1.0 x 0.9 x 1.3 cm, compatible with a pituitary adenoma, unchanged compared to the prior MRI of 2016. compared to previous measurement 1.0 x 1.1 x 1.0 cm. Patient was previously followed by Dr. Bradford, since diagnosed in 2004. She was recently diagnosed with lupus at [facility]. Overall, she has been feeling well. She complains of some urinary urgency, but denies dysuria. Current Outpatient Medications Medication Sig Dispense Refill ascorbic acid, vitamin C, (VITAMIN C) 1000 MG tablet Take 1,000 mg by mouth daily. hydroxychloroquine (PLAQUENIL) 200 mg tablet Take 200 mg by mouth daily. 1 loratadine (CLARITIN) 10 mg tablet 10 mg as needed. multivitamin (THERAGRAN) per tablet Take 1 tablet by mouth daily. NIFEdipine (PROCARDIA XL) 30 MG 24 hr tablet Take 1 (one) tablet (30 mg total) by mouth daily as needed. 90 tablet 3 omeprazole (PRILOSEC) 40 MG capsule Take 1 (one) capsule (40 mg total) by mouth daily. 90 capsule 3 No current facility-administered medications for this visit. Review of Systems: Review of Systems Constitutional: Negative for appetite change, fatigue and unexpected weight change. HENT: Negative for ear pain. Eyes: Negative for photophobia and visual disturbance. Respiratory: Negative for cough and shortness of breath. Cardiovascular: Negative for chest pain and leg swelling. Gastrointestinal: Negative for abdominal pain, constipation, diarrhea, nausea and vomiting. Endocrine: Negative for polydipsia, polyphagia and polyuria. Genitourinary: Positive for urgency. Negative for dysuria, flank pain and frequency. Musculoskeletal: Positive for arthralgias, joint swelling and myalgias. Skin: Negative for wound. Neurological: Positive for light-headedness (reports change in gait at times.). Negative for numbness and headaches. Psychiatric/Behavioral: Negative for agitation and sleep disturbance. The patient is not nervous/anxious. The following portions of the patient's history were reviewed and updated as appropriate: allergies, current medications, past family history, past medical history, past social history, past surgical history and problem list. Objective: Physical Exam: BP 135/86 Pulse 72 Ht 5' 6 Wt 91 kg (200 lb 9.6 oz) BMI 32.38 kg/m Wt Readings from Last 3 Encounters: 04/09/22 91 kg (200 lb 9.6 oz) 03/02/22 84.8 kg (187 lb) 02/27/22 84.8 kg (187 lb) Physical Exam Constitutional: Appearance: She is well-developed. HENT: Head: Normocephalic and atraumatic. Eyes: Conjunctiva/sclera: Conjunctivae normal. Pupils: Pupils are equal, round, and reactive to light. Neck: Thyroid: No thyromegaly. Cardiovascular: Rate and Rhythm: Normal rate and regular rhythm. Heart sounds: Murmur heard. Pulmonary: Effort: Pulmonary effort is normal. Breath sounds: Normal breath sounds. Musculoskeletal: General: Normal range of motion. Cervical back: Normal range of motion and neck supple. Skin: General: Skin is warm and dry. Neurological: Mental Status: She is alert and oriented to person, place, and time. Psychiatric: Behavior: Behavior normal. Thought Content: Thought content normal. Judgment: Judgment normal. Lab Review Lab Results Component Value Date WBC 2.16 11/26/2018 HGB 12.1 11/26/2018 HCT 39.6 11/26/2018 PLT 250 11/26/2018 Chemistry Component Value Date/Time BUN 13 11/26/2018 0000 CREATININE 0.84 11/26/2018 0000 Component Value Date/Time ALKPHOS 73 11/26/2018 0000 AST 24 11/26/2018 0000 ALT 20 11/26/2018 0000 BILITOT 0.3 11/26/2018 0000 Date: 01/10/22 *labs reviewed 04/09/22 Hgb A1c: 5.5% Creat: 0.90; eGFR: 75 AST: 23; ALT: 18 K: 4.2 CBC: WBC:2.69; Hgb: 11.6; Hct: 37.9; Plt: 226 Tchol: 225; Tri ; HDL: 76 ; LDL: 129 01/10/21 TSH: 2.480 09/23/20 TSH: 2.620 06/13/18 TSH 2.040, FT4--1.1 Prolactin 10.0 Cortisol 4.7 sodium 138, potassium 4.1, creatinine 0.82, estimated GFR greater than 60 Calcium 9.2, albumin 4.2 AST 27, ALT 19 03/22/20 TSH: 2.430; Free T4: 1.0 Prolactin: 10.8 Cortisol: 10.9 11/30/17 TSH 2.620, free T4--1.0 Prolactin 11.4 Sodium 138, potassium 4.0 Creatinine 0.83, estimated GFR greater than 60 AST 28, ALT 22 WBC 2.17, hemoglobin 11.8, hematocrit 38.5, platelet count 237,000 06/05/17 TSH 2.49, FT4--0.9 Sodium 138, potassium 3.9 Creatinine 0.66, estimated GFR greater than 60 AST 18, ALT 31 FSH 115.8, LH 44.8, prolactin 13.2 10/14/16: TSH 2.036 Creatinine 0.69, potassium 3.7 AST 18, ALT 15 Rheumatoid factor 21, CLINICAL MENTAL HEALTH COUNSELOR antibody positive CBC: WBC 2.2, hemoglobin 11.7, hematocrit 37.2, platelet count 229,000 06/01/16 Creat: 0.80 AST: 27; ALT: 16 K: 4.1 Na: 139 CBC: WBC:1.70; Hgb: 11.3; Hct: 35.1; Plt: 275 TSH: 1.70 ; FreeT4: 1.3 LH: 61; FSH: 85.9 Cortisol: 7.3 Prolactin: 9.6 11/10/15 Creat: 0.97 Sodium: 140 Potassium: 4.1 AST:21; ALT:21 CBC: WBC: 1.74; Hgb: 11.9; Hct: 37.0; Plt: 226. TSH: 3.270; FreeT4: 1.0 Prolactin: 23.3 Cortisol: 20 Radiology Review: 03/03/22 EXAMINATION: MR PITUITARY WITH AND WITHOUT CONTRAST HISTORY: ORDERING SYSTEM PROVIDED HISTORY: Pituitary macroadenoma (HCC), TECHNOLOGIST PROVIDED HISTORY: Illness/Other Reason for exam: dizziness, off balanced, blurred vision, headaches sx x 3 months Encounter Type: Initial Additional signs and symptoms: n/a ORDERING SYSTEM PROVIDED DIAGNOSIS CODES: D35.2 Pituitary macroadenoma (HCC) COMPARISON: Brain MRI 06/04/2016. TECHNIQUE: Multiplanar multisequence MR imaging of the head was performed prior to and following administration of intravenous contrast. CONTRAST: GADOTERATE MEGLUMINE 0.5 MMOL/ML (376.9 MG/ML) INTRAVENOUS SOLUTION - 17 mL, FINDINGS: No restricted diffusion. No acute hemorrhage, mass effect, midline shift or extra-axial fluid collection. Moderate patchy areas of increased FLAIR signal seen within the periventricular and subcortical white matter. Expected flow voids are seen within the intracranial internal carotid, vertebral and basilar arteries. Cerebellopontine angles and internal auditory canals are unremarkable. Orbits and globes are unremarkable. Expected signal voids are seen within paranasal sinuses and mastoid air cells. Pituitary gland is enlarged with a convex superior margin abutting the optic chiasm, unchanged in size or appearance. The pituitary gland measures 1.0 x 0.9 x 1.3 cm, unchanged. No cavernous sinus invasion. No new areas of abnormal enhancement. IMPRESSION: 1. Enlarged pituitary gland measuring 1.0 x 0.9 x 1.3 cm, compatible with a pituitary adenoma, unchanged compared to the prior MRI of 2016. Contact of the optic chiasm is stable. No cavernous sinus invasion. 2. Moderate nonspecific FLAIR signal abnormalities of the supratentorial white matter, compatible with small vessel ischemic changes. DMC/ges Examination: MRI BRAIN W/O&W/ CONT CLINICAL HISTORY: Followup pituitary macroadenoma. MRI brain without with gadolinium attention pituitary gland 06/04/2016 Comparison: MRI brain attention pituitary gland 06/07/2014. MRI BRAIN WITHOUT AND WITH CONTRAST ATTENTION PITUITARY: TECHNIQUE: Following fast spin echo T2 sagittal localizer sequence through the entire brain, gradient echo 3D T2* coronal images were obtained through the sella turcica. Pre and post-gadolinium fat saturated high resolution T1 axial and coronal images were obtained through the region of the sella turcica bilateral. Axial EPI diffusion and FLAIR sequence imaging was obtained through the entire brain. A total of 8 mL MultiHance DTPA IV was administered. FINDINGS: The visualized paranasal sinuses, mastoid air cells and intraorbital contents are unremarkable. Normal vascular flow void is seen both in the anterior and posterior circulation as well as the dural venous sinuses. Brainstem and posterior fossa contents are unremarkable. Normal bone marrow signal characteristics are seen throughout the skull. Pituitary macroadenoma is not appreciably changed in configuration or size, seen as a homogeneously enhancing mass in the sella turcica, measuring 10 x 11 x 10 mm. Supratentorially, CSF spaces and cerebral sulci are within normal limits. No mass, hemorrhage or midline shift is seen. Confluent bilateral periatrial FLAIR sequence abnormalities appear stable when compared to previous exam as well as multifocal small bifrontal and biparietal subcortical and periventricular white matter FLAIR sequence abnormalities. There is no extra-axial fluid collection. Following gadolinium administration, no focus of abnormal enhancement is seen. IMPRESSION: 1. Unchanged pituitary macroadenoma. 2. Signal abnormalities described in the periventricular and subcortical white matter are typically seen as sequela from microangiopathic ischemic disease versus demyelinating/dysmyelinating processes. 3. Otherwise unremarkable MRI of the brain without and with gadolinium. Interpreting Physician: MARIANO FLORES M.D. Examination: CT NECK W/CONTRAST CLINICAL HISTORY: Right-sided neck swelling. SPIRAL CT SCAN OF THE NECK WITH INTRAVENOUS CONTRAST ON 10/26/2016 Spiral scans were obtained from the base of skull through the suprasternal notch following intravenous injection of 50 cc of Isovue 370 followed by 50 cc of saline. A radiopaque marker was applied over the area of interest. The inferior portion of the brain visualized is unremarkable in appearance. There are degenerative changes involving the upper portion of the thoracic spine visualized. There is reversal of the normal cervical lordosis without subluxation. The intervertebral disc spaces are fairly well-maintained. No acute osseous abnormalities are identified. The paranasal sinuses and mastoid air cells as visualized are unremarkable. A portion of the lungs visualized are unremarkable in appearance bilaterally. No acute orbital abnormalities are identified. The pterygopalatine fossa are normal in appearance bilaterally. The fossa of Rosenm'fcller are bilaterally symmetric. The parotid glands are normal in appearance bilaterally. A skin marker overlies the posterior aspect of the right parotid gland slash sternocleidomastoid muscle however no discrete abnormality is seen in this area either involving the parotid gland or in the adjacent soft tissues. No lymphadenopathy or other soft tissue mass or fluid collection is present. The submandibular glands are normal in appearance bilaterally. The larynx as visualized is normal in appearance. The thyroid gland is normal in appearance. No supraclavicular lymphadenopathy or other cervical adenopathy is identified. There are multiple lymph nodes seen involving both axilla thought to be within the limits of variation. IMPRESSION: 1. Reversal of the normal cervical lordosis without subluxation. There are degenerative changes involving the upper thoracic spine with marginal vertebral body osteophyte formation. 2. The skin marker placed along the right side of the neck overlies the posterior aspect of the right parotid gland/ sternocleidomastoid muscle. No discrete parotid gland abnormalities are identified. No adjacent lymphadenopathy or other soft tissue mass is present. Assessment: Dx: 1. Pituitary adenoma (HCC) Ambulatory referral to Endocrinology Aminata Cohen presents for follow-up of a non-secreting Pituitary Macroadenoma. Patient's last MRI completed 03/02/22 demonstrated a stable pituitary macroadenoma measuring 1.0 x 0.9 x 1.3 cm. Patient was previously followed by Dr. Bradford, since diagnosed in 2004. Patient has had no specific symptoms, no signs of optic chiasm involvement. She has been diagnosed with lupus. Last eye exam within the last 1 year. She has an exam every 6 months she states. Hypogonadism: Positive LH and FSH are elevated consistent with menopause. Patient previously reported no menstrual cycle for the last 12 months. Hypothyroidism: Negative TSH 2.040, Free T4 1.1; no thyroxine replacement. Adrenal Insufficiency: Negative Currently no symptoms, no replacement medications. Labs reviewed. Plan: Continue to monitor. Diabetes Insipidus: Negative Not present in this patient. Prolactin elevation: Negative Patient with normal prolactin of 11.4 on 11/30/17. Diagnosed with lupus History of vitamin D deficiency Iron Deficiency anemia Chronic leukopenia. Evaluated by hematology in past. Plan: 1. Rx changes: none. Continue to monitor. Labs ordered. Needs to continue to have regular eye exam. Check labs Check MRI PRN. 2. Follow up: 6 months Orders Placed This Encounter Procedures CBC and Differential Prolactin Follicle Stimulating Hormone Luteinizing Hormone Comprehensive Metabolic Panel T4, Free TSH Cortisol, AM Vitamin D, Total, 25-OH Vitamin B12 Vitamin B6 Folate documented in this encounter [facility] 03-19-2022 History of Present illness Narrative Telephone Visit Via Phone Call Patient ID: Aminata Cohen is a 56 y.o. female on the phone for a(n) follow-up visit. Patient phone : [phone] This visit has been fully reviewed with the patient and verbal consent has been obtained. Assessment/Plan: Aminata Cohen is a 56 y.o. female who presents with history of pituitary macroadenoma and chronic neck and low back pain, which is not substantially bothersome to the patient at this time, and improved balance issues. - Reviewed MRI cervical and brain results with the patient - Recommended follow-up with neurology to evaluate her balance issues - patient declined at this time and will call back later if desired - Discussed the option of referral to pain management for her low back pain - patient states that she is not ready yet and will call back at a later date - Will plan for follow-up with neurosurgery as needed I have spent 11-20 minutes with the patient discussing current HPI. Susan Almaguer, , MPAP, PAAntoniC [facility] HPI: The patient states that since her last visit, she has noted that her balance issues seem to have improved. She has not had the imbalance sensation since our last conversation. She states that if she does not move the wrong way, she has some neck pain, but it seems to be mild and is not substantially bothersome. This also seems to be improved. She denies any radiculopathy. She denies any numbness, tingling, or weakness to the bilateral upper extremities. She does have some bilateral ankle swelling, and I advised her to follow-up with her PCP for this. She admits to some chronic bilateral low back pain that is worse with movement or eating hot spicy items. Nothing seems to make this pain better. She denies any numbness, tingling, or weakness to the bilateral lower extremities. She also denies any bowel or bladder dysfunction including incontinence. No other complaints at this time. MRI Cervical Spine Radiologic interpretation is as follows: Study mildly degraded by motion. The posterior fossa and cranial cervical junction are intact. The cervical spinal cord is of normal caliber and signal intensity. Overall straightening of normal cervical lordosis. The vertebral body heights and facet alignments are maintained. No acute or aggressive osseous abnormality identified. AXIAL IMAGES: C2-3: No focal disc herniation identified. No significant spinal canal or neural foraminal stenosis. C3-4: Broad-based disc bulge with mild spinal canal stenosis. Moderate bilateral foraminal stenosis, right greater than left secondary to uncovertebral degeneration and facet arthropathy. C4-5: Broad-based disc bulge with superimposed central disc protrusion. [id number] spinal canal stenosis. Mild bilateral neural foraminal stenosis secondary to uncovertebral degeneration and facet arthropathy. C5-6: Broad-based disc bulge with superimposed central disc protrusion. Moderate spinal canal stenosis. Moderate bilateral foraminal stenosis secondary to uncovertebral degeneration and facet arthropathy. C6-7: Broad-based disc bulge with minimal spinal canal stenosis. Moderate bilateral foraminal stenosis secondary to uncovertebral degeneration and facet arthropathy. C7-T1: Mild broad-based disc bulge without significant spinal canal stenosis. Moderate bilateral foraminal stenosis secondary to uncovertebral degeneration and facet arthropathy. CONCLUSION: Moderate multilevel degenerative disc disease and facet arthropathy throughout the cervical spine, most notably at the C4-C5 and C5-C6 level with focal central disc herniations at these levels. MRI Brain Radiologic interpretation is as follows: No restricted diffusion. No acute hemorrhage, mass effect, midline shift or extra-axial fluid collection. Moderate patchy areas of increased FLAIR signal seen within the periventricular and subcortical white matter. Expected flow voids are seen within the intracranial internal carotid, vertebral and basilar arteries. Cerebellopontine angles and internal auditory canals are unremarkable. Orbits and globes are unremarkable. Expected signal voids are seen within paranasal sinuses and mastoid air cells. Pituitary gland is enlarged with a convex superior margin abutting the optic chiasm, unchanged in size or appearance. The pituitary gland measures 1.0 x 0.9 x 1.3 cm, unchanged. No cavernous sinus invasion. No new areas of abnormal enhancement. IMPRESSION: 1. Enlarged pituitary gland measuring 1.0 x 0.9 x 1.3 cm, compatible with a pituitary adenoma, unchanged compared to the prior MRI of 2016. Contact of the optic chiasm is stable. No cavernous sinus invasion. 2. Moderate nonspecific FLAIR signal abnormalities of the supratentorial white matter, compatible with small vessel ischemic changes. Patient's Medications New Prescriptions No medications on file Previous Medications ASCORBIC ACID, VITAMIN C, (VITAMIN C) 1000 MG TABLET Take 1,000 mg by mouth daily. HYDROXYCHLOROQUINE (PLAQUENIL) 200 MG TABLET Take 200 mg by mouth daily. LORATADINE (CLARITIN) 10 MG TABLET 10 mg as needed. MULTIVITAMIN (THERAGRAN) PER TABLET Take 1 tablet by mouth daily. NAPROXEN SODIUM (ANAPROX) 220 MG TABLET Take 440 mg by mouth as needed . NIFEDIPINE (PROCARDIA XL) 30 MG 24 HR TABLET Take 1 (one) tablet (30 mg total) by mouth daily as needed. OMEPRAZOLE (PRILOSEC) 40 MG CAPSULE Take 1 (one) capsule (40 mg total) by mouth daily. UNABLE TO FIND Tumeric . Modified Medications No medications on file Discontinued Medications No medications on file Provider location: [facility] [place] [address]) [facility] [address] [facility] [address] Patient location: [address] [place] [address] documented in this encounter [facility] 02-16-2022 Note Addended by: SUSAN ALMAGUER on: 02/16/2022 10:05 AM Modules accepted: Orders [facility] 02-16-2022 Note Addended by: SUSAN ALMAGUER on: 02/16/2022 10:05 AM Modules accepted: Orders [facility] 02-16-2022 Miscellaneous Notes Addended by: USSAN ALMAGUER on: 02/16/2022 10:05 AM Modules accepted: Orders documented in this encounter [facility] 01-22-2022 Miscellaneous Notes Patient calls and states that she has been seeing and she just needs the referral. Referral faxed as requested. Holley Morgan RN Filed order as requested, but if the specialist has questions as to why is requesting there referral JAYESH, I would need more information than what is provided below to convey to the specialist. Noted mention of dizziness. She does have history of a pituitary adenoma. Found progress note under Care Everywhere and patient had been following with Dr Euceda with most recent progress note 06/26/2018 and last MR done by her was 2016 according to that note. Things were stable. Since was seen before, hope all they need is just the referral. To ER if red flag symptoms, such as los of vision, severe nausea and vomiting, severe dizziness, severe headache, etc. Patient calling to request an Endocrinology referral be ordered and faxed to Dr. Euceda at [facility] at FAX #: [phone]. Patient states she has pituitary gland issues and has been experiencing some dizziness and would like to make an appt with Dr. Euceda as soon as possible. Patient kindly declined to be further triaged to possibly be seen here at [facility] due to symptoms. Patient requested to be called once referral has been ordered and faxed to Dr. Euceda. Patient states a detailed message may be left on her voicemail. Thank you. documented in this encounter [facility] 01-22-2022 History of Present illness Narrative [facility] Progress Note Patient Name: Aminata Cohen Date of Service: : 1965 Impression: Aminata Cohen is a 56 y.o. year old female with stable, non-secreting pituitary tumor, cervical degenerative disc disease, straightening of the cervical lordotic curvature, scoliosis, lumbar instability, facet arthropathy, and spondylolisthesis. Plan: - Recommend MRI cervical spine without contrast due to positive Rhomberg sign to evaluate for central cervical stenosis - Recommend MRI pituitary with and without contrast due to new dizziness and history of pituitary adenoma - Follow-up upon completion of the imaging - Nursing notes reviewed Time statement: A total of 35 minutes were spent on this encounter, which includes the time reviewing the patient's diagnostic tests, seeing the patient, speaking with nursing staff, and documenting in the record. Susan Almaguer, , MPAP, [facility] [place] [facility] Office: Chief Complaint: Pituitary Problem (Patient presents today with dizziness and pitutary tumor. Patient states she is unbalanced. Patient states she does have some blurry vision. Patient states she has no other symptoms or concerns at this time. Patient state when she had recent X-rays from our office, she never got the results, she would like to discuss the results.) HPI: Aminata Cohen is a 56 y.o. year old female with acute on chronic low back pain with bilateral sciatica, who presents for follow-up evaluation. History is obtained from the patient and chart review. The patient presents today with new complaints of imbalance. She states that while ambulating, she finds that she leans towards the left. She denies any lightheadedness or spinning sensation. She does note a floating sensation in her head that began 2 months ago. She denies any hearing issues or tinnitus. She admits to blurriness to both eyes. She states that she had a dilated eye exam 5 days ago and denies any reported concerns per the engineering operator/gold assayer. She feels that it may be a little worse, but the engineering operator said it was stable. Per previous review of cervical spine x-ray, the patient does have history of degenerative disc disease. She continues to have some neck pain, predominantly to the paraspinal and trapezial regions. She has been using ice and a rub while working. She does have some occasional posterior neck pain, but she denies any pain currently. She denies any radicular symptoms, numbness, tingling, or weakness to the bilateral upper extremities. She does admit to chronic bilateral low back pain radiating down the posterior aspect of the bilateral lower extremities. She denies any numbness or tingling to the bilateral lower extremities. She denies any bowel or bladder changes. No recent illnesses, fevers, chills, or sweats. She denies any other complaints at this time. Physical Examination: PACU Vitals 01/22/22 1407 BP: 124/86 Pulse: 77 SpO2: 98% PainSc: 5 PainLoc: Back General: Healthy, well-appearing 56 y.o. female, in NAD HENT: Hearing grossly intact to voice Eyes: PERRLA, 4mm bilaterally; EOM intact; gaze symmetric, no nystagmus Neuro: Awake, alert, speech fluent - Muscles of facial expression intact (eyebrow raise, eye closure, smile, and puffed cheeks) - Sensation intact the V1, V2, and V3 distribution - [place] clench strong bilaterally - Tongue midline - Palate raise symmetric bilaterally Neck: Supple, full lateral rotation; no midline cervical tenderness; no paraspinal tenderness; no trapezial tenderness Chest: Chest rise symmetric, respirations non-labored Cardiac: No pedal edema, no posterior calf tenderness Skin: Warm and dry MSK: - No clonus on right; no clonus on left - Patellar Tendon Reflexes: 2+ on right, 2+ on left Muscle Group Right Left Hip Flexion 5 5 Knee Extension 5 5 Knee Flexion 5 5 Dorsiflexion 5 5 Plantar Flexion 5 5 Sensation intact to light touch to bilateral lower extremities without areas of diminished sensation. Ambulates with shortened stride, stooped posture, with slightly waddling gait. Positive Rhomberg with left side step. XR Cervical Spine - 04/03/2021 Radiologic interpretation is as follows: Straightening of normal cervical lordosis. The vertebral body heights and facet alignments are maintained. [id number] degenerative disc disease and facet arthropathy is present, most significant at the C5-C6 level. No dynamic instability. No radiographic evidence of severe neural foraminal stenosis. The prevertebral soft tissues are unremarkable. The lung apices are clear. IMPRESSION: Degenerative changes without acute osseous abnormality. documented in this encounter [facility] 01-12-2022 Miscellaneous Notes Patient calls to check on lab results. Reviewed labs and noted need to add on HGBA1C. Call placed to main laboratory and lab will be added. Patient aware. Valentine Paredes RN Already had lab draw. Ordered to see if could add to what was already drawn Patient is requesting A1C labs. Please call when added. documented in this encounter [facility] 01-09-2022 Miscellaneous Notes Patient given information. She voiced her understanding. Declined scheduling PT at this time. Left message to call office. 01/09/2022 9:07 AM Estrada Bryant Ma X-ray of the knee showed arthritis, this is the most likely cause of her symptoms. Recommend referral to PT. She can also follow-up with orthopedics to discuss joint injection Suzy Medina APRN.ZURDO documented in this encounter [facility] 01-07-2022 History of Present illness Narrative CC: Patient presents with: Right Knee Pain JALIL Cohen is a 56 year old female who presents today for right knee pain starting about one year ago, acutely worsening over the past week. Located: medial knee. Described as aching Injury: None. She is on her feet for 9 hours a day Aggravated by: walking Knee popping or clicking with movement? No Knee locking or feel like is giving-out? Yes feels like it may give out at times Does the knee pain wake you up at night:No Previous injury: No Previous surgery: No Denies redness, swelling or increased warmth Treatment: NSAIDs with temporary relief of symptoms REVIEW OF SYSTEMS See HPI PAST MEDICAL HISTORY Diagnosis Date Anemia Arthritis Esophagitis, unspecified GERD (gastroesophageal reflux disease) Hypertension Leukopenia Lupus (systemic lupus erythematosus) (HCC) diagnosed by Dr. Silverio Migraine headache without aura Neutropenia (HCC) Pituitary adenoma (HCC) Raynaud's phenomenon PAST SURGICAL HISTORY Procedure Laterality Date BREAST CYST LEFT, FLUID 1988 ESOPHAGOGASTRODUODENOSCOPY TRANSORAL DIAGNOSTIC 03/10/2012 EGD PAST SURGICAL HISTORY OF 08/08/2010 EGD PAST SURGICAL HISTORY OF 1987 Removal of Benign Left breast lump ALLERGIES Seasonal Allergies MEDICATIONS omeprazole (PRILOSEC) 40 mg capsule Take 1 capsule by mouth once daily. NIFEdipine ER (PROCARDIA XL) 30 mg 24 hr tablet Take 1 tablet by mouth once daily. as directed hydrOXYchloroQUINE (PLAQUENIL) 200 mg tablet Take 2 tablets by mouth once daily. naproxen sodium (ALEVE) 220 mg tablet Take 2 tablets by mouth daily with breakfast. TAKE WITH FOOD cyclobenzaprine (FLEXERIL) 10 mg tablet Take 0.5-1 tablets by mouth three times daily as needed. Plan to take just at bedtime since sedating and during the day only if severe loratadine (CLARITIN) 10 mg tablet Take 1 tablet by mouth once daily. cholecalciferol (VITAMIN D3) 1,000 unit tab tablet Take 1 tablet by mouth once daily. FAMILY HISTORY Problem Relation Age of Onset Diabetes Mother Hypertension Mother other (thalassemia minor trait) Mother other (Colon Polyps removed) Mother Prostate Cancer Father Diabetes Father Hypertension Father Hyperlipidemia Father Colon Cancer Maternal Aunt No Ocular Disease Maternal Aunt Hypertension Sister Hypertension Brother Stroke Maternal Grandfather Hypertension Sister Social History Tobacco Use Smoking status: Never Smoker Smokeless tobacco: Never Used Substance Use Topics Alcohol use: No Drug use: No PHYSICAL EXAM BP 114/84 Pulse 84 Resp 16 Wt 87.5 kg (193 lb) LMP 07/20/2013 BMI 31.87 kg/m General Appearance: well appearing, in no acute distress, alert Musculoskeletal: Right knee- Normal to inspection. Tenderness:none. Flexion:Limitation: No, Pain:No; Extension:Limitation:No, Pain:No. Laxity: No Lower extremities: no edema in LE bilaterally, good distal pulses. Muscle strength- 5/5 bilaterally ASSESSMENT/PLAN: 1. Chronic pain of right knee - ICD9: 719.46, 338.29, ICD10: M25.561, G89.29 (primary diagnosis) Likely OA - XR KNEE GENERAL 4V AP BOTH/PA BOTH/LAT/MERC RIGHT today - Voltaren gel as needed - Follow-up pending results 2. Obesity, Class I, BMI 30-34.9 - ICD9: 278.00, ICD10: E66.9 - LIPID PANEL BASIC - COMP METABOLIC PANEL - CBC + DIFF Prescription instructions reviewed with patient as applicable. Potential red flag symptoms discussed with the patient. Reviewed appropriate action plan to take if red flag symptoms occur. Patient agreeable to treatment plan. Suzy Medina APRN.CNP documented in this encounter [facility] 12-08-2021 Miscellaneous Notes Needs follow up appointment since nothing scheduled. Okayed RX--more refills after follow up Patient has been identified by name and date of : Yes Patient phones for refill(s): Pending Prescriptions Disp Refills OMEPRAZOLE 40 MG CAPSULE,DELAYED RELEASE 90 capsule 0 Sig: Take 1 capsule by mouth once daily. RODERICK: No NIFEDIPINE ER 30 MG TABLET,EXTENDED RELEASE 24 HR 90 tablet 0 Sig: Take 1 tablet by mouth once daily. as directed RODERICK: No Date of last office visit in primary care: 01/10/2021 No future appt scheduled. Last 2 Encounter Wt Readings: Date: Wt: 01/10/2021 96.6 kg (213 lb) 09/23/2020 95.3 kg (210 lb) Previous labs/tests for medication: Blood Pressure: BUN (mg/dL) Date Value 01/10/2021 9 Sodium (mmol/L) Date Value 01/10/2021 142 Last 1 Encounter BP Readings: Date: BP: 01/10/2021 120/78 Please advise. Thank you. Mariela Brady LPN Patient has been identified by name and date of : Yes Pending Prescriptions Disp Refills OMEPRAZOLE 40 MG CAPSULE,DELAYED RELEASE 90 capsule 3 Sig: Take 1 capsule by mouth once daily. RODERICK: No NIFEDIPINE ER 30 MG TABLET,EXTENDED RELEASE 24 HR 90 tablet 3 Sig: Take 1 tablet by mouth once daily. as directed RDOERICK: No RX INSTRUCTIONS: Please send today, getting low. But since mail order, requested sent today, if possible. Patient aware RX escripted to mail away pharmacy. No need to notify patient. Ashwini De La Cruz Pss documented in this encounter [facility] 11-17-2021 History of Present illness Narrative HISTORY & PHYSICAL EXAMINATION Patient Name: Aminata Cohen MR #: [id number] : 1965 Physicians: Rogelio Thomas MD (Family); Rogelio Thomas MD (Referring) Chief Complaint/Reason for Visit: Bright red blood per rectum History of Present Illness: Aminata Cohen is a 56 y.o. y/o female with past medical history of GERD, hypertension, lupus and a pituitary microadenoma presenting for referral for a colonoscopy due to recent bright red blood per rectum. Last colonoscopy was 2013 reports that it was notable for colonic polyps. She reports that 2 months ago she began to experience episodes of bright red blood when cleaning herself in the bathroom. She denies any palpable external hemorrhoids or the sensation of anything prolapsing. Describes her stools as being soft and does not appreciate significant straining. Her family history is negative for colon cancer Risk factor/ Bowel Symptoms Diarrhea no. Constipation no. Blood in stool yes. Mucus in stool no. Change in caliber of stool no. Diagnosis of anemia no. Family history of colon cancer no. Family history of other digestive cancer. no. History: I have reviewed the PMHx, PSHx, SHx, FHx in EMR with the patient during this encounter face to face and patient agrees with the documentation Past Medical History: Diagnosis Date Alopecia Arthritis Breast cyst 1980 GERD (gastroesophageal reflux disease) HTN (hypertension) Lupus (HCC) Migraine Pituitary microadenoma (HCC) Past Surgical History: Procedure Laterality Date COLONOSCOPY 05/14/2014 normal.....Dr. Cox ESOPHAGOGASTRODUODENOSCOPY 05/14/2014 ....... Family History Problem Relation Age of Onset Diabetes Mother Hypertension Mother Diabetes Father Hypertension Father Breast cancer Maternal Aunt Social History Socioeconomic History Marital status: Single Tobacco Use Smoking status: Never Smoker Smokeless tobacco: Never Used Vaping Use Vaping Use: Never used Substance and Sexual Activity Alcohol use: Never Drug use: Never Allergy Information: No known drug allergies Home Medications: Outpatient Medications as of 11/17/2021 Medication Sig ascorbic acid, vitamin C, (VITAMIN C) 1000 MG tablet Take 1,000 mg by mouth daily. hydroxychloroquine (PLAQUENIL) 200 mg tablet Take 200 mg by mouth daily. loratadine (CLARITIN) 10 mg tablet 10 mg as needed. multivitamin (THERAGRAN) per tablet Take 1 tablet by mouth daily. naproxen sodium (ANAPROX) 220 MG tablet Take 440 mg by mouth as needed . NIFEdipine (PROCARDIA XL) 30 MG 24 hr tablet Take 1 (one) tablet (30 mg total) by mouth daily as needed. omeprazole (PRILOSEC) 40 MG capsule Take 1 (one) capsule (40 mg total) by mouth daily. UNABLE TO FIND Tumeric . Review of Systems: Review of Systems Physical Examination: Vital Signs: BP 138/88 (BP Location: Left arm) Pulse 78 Ht 5' 6 Wt 89 kg (196 lb 3.2 oz) SpO2 99% BMI 31.67 kg/m Physical Exam Laboratory and Additional Data Reviewed: Laboratory 11/17/21 1:28 PM Laboratory Lab Results Component Value Date WBC 2.16 11/26/2018 HGB 12.1 11/26/2018 HCT 39.6 11/26/2018 PLT 250 11/26/2018 No results found for: AMYLASE No results found for: LIPASE Assessment and Plan: Aminata Cohen is a 56 y.o. y/o female with past medical history of GERD, hypertension, lupus and a pituitary microadenoma presenting for referral for a colonoscopy due to recent bright red blood per rectum. Patient Active Problem List Diagnosis Pituitary macroadenoma (HCC) Lupus (HCC) Anemia Vitamin D deficiency Painful breasts History of lupus History of hypertension Dysuria Plan: Schedule for colonoscopy. The risks and benefits of my recommendations, as well as other treatment options were discussed with the patient today including but not limited to perforation and bleeding. Prep instruction provided and consent obtained. Questions were answered. 1. Bright red blood per rectum Case Request Operating Room: COLONOSCOPY Vital signs lactated Ringers infusion (This order has not been finalized) 2. History of colonic polyps Case Request Operating Room: COLONOSCOPY Vital signs lactated Ringers infusion (This order has not been finalized) Total time 30 minutes, greater than 50% spent [id number] with the patient obtaining history, performing exam explaining the procedure obtaining consent and coordinating care Screening and Health maintenance Colonoscopy - Last colonoscopy 2013 documented in this encounter [facility] 10-20-2021 Miscellaneous Notes Referral and patient information faxed to number below per requests. See below; consult placed Pt calls to request a referral to Dr. Yonatan Hanson or Dr. Clements(?) who are surgeons out of [facility]. Pt reports she has rectal bleeding and feels she will need surgery for this. There is a referral in pt's chart for Gastro but not for a surgeon. Fax referral and pt information to: [phone]. # [phone] Karlene Myrick LPN documented in this encounter [facility] 04-03-2021 History of Present illness Narrative [facility] Progress Note Patient Name: Aminata Cohen Date of Service: : 1965 Impression: Aminata Cohen is a 55 y.o. year old female with history of scoliosis, lumbar instability, facet arthropathy, and spondylolisthesis as well as history of stable, non-secreting pituitary tumor, who presents today with complaints of cervical paraspinal pain, trigger points, and mid back pain. - XR evidence of cervical and thoracic degenerative disc disease and cervical facet arthropathy Plan: - Regarding her axial spine pain, patient is not interested in any surgical options Will complete XR cervical and thoracic spine to rule out acute pathologies - Offered physical therapy multiple times, but the patient is not interested at this time and will call in the future if she changes her mind - Will plan for follow-up as needed - Nursing notes reviewed Time statement: A total of 35 minutes were spent on this encounter, which includes the time reviewing the patient's diagnostic tests, seeing the patient, speaking with nursing staff, and documenting in the record. Susan Almaguer, MS, MPAP, [facility] [place] Neuro[facility] Office: Chief Complaint: Neck Pain (Patient describes her neck pain as a very tight and ran down the center of her in between her shoulders.) HPI: Aminata Cohen is a 55 y.o. year old female with history of acute on chronic low back pain with bilateral sciatica now with neck pain, who presents for follow-up evaluation. History is obtained from the patient and chart review. The patient reports that she developed neck pain and pain between the shoulder blades a few weeks after her last appointment. She states that she cannot tell if it is midline or paraspinal. She states that Aleve helps to make the pain better. She has attempted ice and soaking in Epsom salts, both of which provided at least some relief. She states that it has improved since its onset. She describes it as a very tight pain. She states that it is worse with certain positions. She denies any radicular pains, numbness, tingling, or weakness. She states that her low back is stable in comparison to her previous appointment. It is somewhat improved at this time; however, she does note that she has occasional flare-ups. The pain is also improved by Aleve. She states that she continues to do the same job at her place of employment, which is a significant trigger of her pain. She states that she is making an effort to move differently in an effort to prevent the pain. She states that she is able to tolerate the pain currently and denies any neurologic changes including weakness, numbness, or tingling. She verbalized confirmation that she understands the red flag symptoms and what to do if they occur. Review of Systems: Review of Systems Constitutional: Negative for chills, fatigue and fever. HENT: Negative for congestion, dental problem, hearing loss, rhinorrhea and sore throat. Eyes: Negative for pain and visual disturbance. Respiratory: Negative for cough and shortness of breath. Cardiovascular: Negative for chest pain and leg swelling. Gastrointestinal: Negative for abdominal pain, constipation, diarrhea, nausea and vomiting. Endocrine: Negative. Genitourinary: Negative for decreased urine volume, dysuria, hematuria and urgency. Musculoskeletal: Positive for back pain and myalgias. Negative for arthralgias, gait problem, neck pain and neck stiffness. Skin: Negative for rash and wound. Allergic/Immunologic: Negative. Neurological: Negative for dizziness, weakness, numbness and headaches. Hematological: Negative for adenopathy. Does not bruise/bleed easily. Psychiatric/Behavioral: Negative for dysphoric mood. The patient is not nervous/anxious. Physical Examination: PACU Vitals 04/03/21 1357 BP: 122/81 Pulse: 91 Resp: 16 SpO2: 99% PainSc: 6 PainLoc: Neck General: Healthy, well-appearing 55 y.o. female, in NAD HENT: Hearing grossly intact to voice Neuro: Awake, alert, speech fluent Neck: Supple, full lateral rotation; no midline cervical tenderness; positive for trapezial trigger points with tenderness and interscapular trigger points Chest: Chest rise symmetric, respirations non-labored Cardiac: No pedal edema, no posterior calf tenderness Back: - No midline thoracic spine tenderness; no midline lumbar spine tenderness; positive for paraspinal thoracic spine tenderness; positive for paraspinal lumbar spine tenderness Skin: Warm and dry MSK: Muscle Group Right Left Hip Flexion 5 5 Knee Extension 5 5 Knee Flexion 5 5 Dorsiflexion 5 5 Plantar Flexion 5 5 Cloth Roll Winder 5 5 Biceps 5 5 Triceps 5 5 Deltoid 5 5 Sensation intact to light touch to bilateral upper and lower extremities without areas of diminished sensation. Radiologic/Laboratory Studies Reviewed: XR Cervical Spine - 2020 Radiologic interpretation is as follows: Straightening of normal cervical lordosis. The vertebral body heights and facet alignments are maintained. [id number] degenerative disc disease and facet arthropathy is present, most significant at the C5-C6 level. No dynamic instability. No radiographic evidence of severe neural foraminal stenosis. The prevertebral soft tissues are unremarkable. The lung apices are clear. IMPRESSION: Degenerative changes without acute osseous abnormality. XR Thoracic Spine - 2020 Radiologic interpretation is as follows: Two views of the thoracic spine. No acute fracture. Normal thoracic kyphosis. No listhesis. No abnormal curvature. Vertebral body heights are normal. Osteophytic spurring of the mid and lower thoracic spine. IMPRESSION: No acute osseous abnormality. Mild discogenic disease of the mid and lower thoracic spine. documented in this encounter [facility] 01-03-2021 History of Present illness Narrative [facility] Progress Note Patient Name: Aminata Cohen Date of Service: : 1965 Impression: Aminata Cohen is a 55 y.o. year old female with scoliosis, lumbar instability, facet arthropathy, and spondylolisthesis as well as history of stable, non-secreting pituitary tumor. Plan: - Patient is not interested in any surgical options at this time and would like to continue to exhaust conservative measures Currently, the patient has no neurologic deficits, so we will attempt physical therapy in an effort to alleviate her back pain Advised patient of red flag symptoms including weakness, bowel/bladder dysfunction and advised her to present to the ED should she experience these symptoms - Will plan for follow-up as needed If PT is unsuccessful, and the patient would like to discuss surgical options in the near future, she should be scheduled with the surgeon If she calls back and MRI is greater than 9 month old, the patient will likely require updated imaging - Nursing notes reviewed Time statement: A total of 55 minutes were spent on this encounter, which includes the time reviewing the patient's diagnostic tests, seeing the patient, speaking with nursing staff, and documenting in the record. Susan Almaguer, MS, MPAP, [facility] [place] Neurosurgery Office: Chief Complaint: Follow-up (Pt brought disk of MRI. Pt states things have been painful since she was last in. Pain starts in mid-low back and radiates down both legs. Denies any numbness/tingling in feet. Pt states at night she has to sleep in certain postions to keep the pain away. Pain is worst while walking, sitting help eases it ) HPI: Aminata Cohen is a 55 y.o. year old female with acute on chronic low back pain with bilateral sciatica, who presents for initial evaluation. History is obtained from the patient and chart review. The patient reports that she continues to have significant low back pain with pain radiating down the posterior aspect of the bilateral lower extremities. The pain typically stops at the knees. She states that it does not radiate past the knees. She denies any weakness, numbness, or tingling. She reports that the pain is substantial and worsens when ambulating. She states that at times, particularly when getting into her car, she does note a catch and severe pain localized to the bilateral paraspinal muscles. She describes this as a gripping tightness. The pain is not worsened since her last visit. Pain seems to be better when sitting. No bowel or bladder dysfunction. Review of Systems: Review of Systems Constitutional: Negative for chills, fatigue and fever. HENT: Negative for congestion, dental problem, hearing loss, rhinorrhea and sore throat. Eyes: Negative for pain and visual disturbance. Respiratory: Negative for cough and shortness of breath. Cardiovascular: Negative for chest pain and leg swelling. Gastrointestinal: Negative for abdominal pain, constipation, diarrhea, nausea and vomiting. Endocrine: Negative. Genitourinary: Negative for decreased urine volume, dysuria, hematuria and urgency. Musculoskeletal: Positive for back pain and myalgias. Negative for arthralgias, gait problem, neck pain and neck stiffness. Skin: Negative for rash and wound. Allergic/Immunologic: Negative. Neurological: Negative for dizziness, weakness, numbness and headaches. Hematological: Negative for adenopathy. Does not bruise/bleed easily. Psychiatric/Behavioral: Negative for dysphoric mood. The patient is not nervous/anxious. Physical Examination: PACU Vitals 01/03/21 1403 BP: 131/88 Pulse: 83 Resp: 16 SpO2: 98% PainSc: 8 PainLoc: Back General: Healthy, well-appearing 55 y.o. female, in NAD HENT: Hearing grossly intact to voice Neuro: Awake, alert, speech fluent Neck: Supple, full lateral rotation; no midline cervical tenderness Chest: Chest rise symmetric, respirations non-labored Cardiac: No pedal edema, no posterior calf tenderness Back: - No midline thoracic spine tenderness; no midline lumbar spine tenderness; positive for paraspinal thoracic spine tenderness; positive for paraspinal lumbar spine tenderness Skin: Warm and dry MSK: Muscle Group Right Left Hip Flexion 5 5 Knee Extension 5 5 Knee Flexion 5 5 Dorsiflexion 5 5 Plantar Flexion 5 5 Sensation intact to light touch to bilateral lower extremities without areas of diminished sensation. Radiologic/Laboratory Studies Reviewed: The following studies have been reviewed on a computerized device and my interpretation is as follows: MRI Lumbar Spine - 2020 Independent review of the lumbar spine imaging reveals degenerative disc disease throughout the lumbar spine. At L4-5, there is spondylolisthesis with significant facet arthropathy identified at L3-4, L4-5, and L5-S1. At L4-5, the facet joint has a large area of T2 hyper intensity suggesting significant lumbar instability. This instability is confirmed on lumbar spine x-rays from her last visit. There is no compression fracture identified. Ligamentum flavum thickening in the lumbar spine causes some degree of central stenosis; however this is moderate at most. There is significant foraminal narrowing at L4-5 and to a lesser degree at L3-4 and L5-S1. Radiologic interpretation is as follows: Counting reference: Lumbosacral junction. For the purposes of this report, L4-5 is considered the level of the iliac crest and assume there are 5 lumbar-type vertebrae. Anatomic variant: None. Localizer images: No additional findings. Alignment: Grade 1 degenerative spondylolisthesis at L4-5. Multilevel mild intervertebral disc space narrowing. Bone marrow signal/fracture: No evidence of confluent abnormal marrow replacement or an acute fracture. Conus: The conus terminates at L1 and is within normal limits of caliber and morphology. Normal course and caliber of the descending cauda equina nerve roots. Paraspinal soft tissues: Paraspinal soft tissues are within normal limits. T10-T11: Canal and foramina are patent. T11-T12: Canal and foramina are patent. T12-L1: Canal and foramina are patent. L1-L2: Canal and foramina are patent. L2-L3: Annular bulging, facet and ligamentous hypertrophy; patent canal with slight narrowing of each subarticular zone, patent foramina. L3-L4: Diffuse disc bulging, facet and ligamentous hypertrophy; mild canal stenosis with narrowing of each subarticular zone, patent foramina. L4-L5: Spondylolisthesis, diffuse disc bulging, moderate facet arthropathy, ligamentous hypertrophy; mild-moderate canal stenosis with narrowing of each subarticular zone, moderate right and mild-moderate left foraminal stenosis. L5-S1: Diffuse disc bulging and facet hypertrophy without significant canal or foraminal compromise. Sacrum and iliac wings: The visualized sacrum and iliac wings are within normal limits. The presacral soft tissues are normal in appearance. IMPRESSION: Lumbar spondylosis, most significant at L4-5, as detailed. Anatomic Lumbar Variant: None. L4-5 is considered the level of the iliac crest and assume there are 5 lumbar-type vertebrae. documented in this encounter [facility] 01-03-2021 Instructions Susan Almaguer PA-C - 01/03/2021 2:51 PM EDT Images from the original note were not included. Based on your imaging, you have lumbar degenerative disc disease (degeneration of the discs between the lumbar vertebrae) with facet arthropathy (arthritis/joint overgrowth). This is worst at L4-5, and because of the facet arthropathy, you have lumbar instability (abnormal movement at this joint). You also have central lumbar stenosis (narrowing in the center of the spine) as well as foraminal stenosis (narrowing around the nerves as they exist the spine), worst at this level. Low Back Pain: Exercises Introduction Here are some examples of exercises for you to try. The exercises may be suggested for a condition or for rehabilitation. Start each exercise slowly. Ease off the exercises if you start to have pain. You will be told when to start these exercises and which ones will work best for you. How to do the exercises Press-up 1. Lie on your stomach, supporting your body with your forearms. 2. Press your elbows down into the floor to raise your upper back. As you do this, relax your stomach muscles and allow your back to arch without using your back muscles. As your press up, do not let your hips or pelvis come off the floor. 3. Hold for 15 to 30 seconds, then relax. 4. Repeat 2 to 4 times. Alternate arm and leg (bird dog) exercise Do this exercise slowly. Try to keep your body straight at all times, and do not let one hip drop lower than the other. 1. Start on the floor, on your hands and knees. 2. Tighten your belly muscles. 3. Raise one leg off the floor, and hold it straight out behind you. Be careful not to let your hip drop down, because that will twist your trunk. 4. Hold for about 6 seconds, then lower your leg and switch to the other leg. 5. Repeat 8 to 12 times on each leg. 6. Over time, work up to holding for 10 to 30 seconds each time. 7. If you feel stable and secure with your leg raised, try raising the opposite arm straight out in front of you at the same time. [id number] exercise 1. Lie on your back with your knees bent and your feet flat on the floor. 2. Bring one knee to your chest, keeping the other foot flat on the floor (or keeping the other leg straight, whichever feels better on your lower back). 3. Keep your lower back pressed to the floor. Hold for at least 15 to 30 seconds. 4. Relax, and lower the knee to the starting position. 5. Repeat with the other leg. Repeat 2 to 4 times with each leg. 6. To get more stretch, put your other leg flat on the floor while pulling your knee to your chest. Curl-ups 1. Lie on the floor on your back with your knees bent at a 90-degree angle. Your feet should be flat on the floor, about 12 inches from your buttocks. 2. Cross your arms over your chest. If this bothers your neck, try putting your hands behind your neck (not your head), with your elbows spread apart. 3. Slowly tighten your belly muscles and raise your shoulder blades off the floor. 4. Keep your head in line with your body, and do not press your chin to your chest. 5. Hold this position for 1 or 2 seconds, then slowly lower yourself back down to the floor. 6. Repeat 8 to 12 times. Pelvic tilt exercise 1. Lie on your back with your knees bent. 2. Brace your stomach. This means to tighten your muscles by pulling in and imagining your belly button moving toward your spine. You should feel like your back is pressing to the floor and your hips and pelvis are rocking back. 3. Hold for about 6 seconds while you breathe smoothly. 4. Repeat 8 to 12 times. Heel dig bridging 1. Lie on your back with both knees bent and your ankles bent so that only your heels are digging into the floor. Your knees should be bent about 90 degrees. 2. Then push your heels into the floor, squeeze your buttocks, and lift your hips off the floor until your shoulders, hips, and knees are all in a straight line. 3. Hold for about 6 seconds as you continue to breathe normally, and then slowly lower your hips back down to the floor and rest for up to 10 seconds. 4. Do 8 to 12 repetitions. Hamstring stretch in doorway 1. Lie on your back in a doorway, with one leg through the open door. 2. Slide your leg up the wall to straighten your knee. You should feel a gentle stretch down the back of your leg. 3. Hold the stretch for at least 15 to 30 seconds. Do not arch your back, point your toes, or bend either knee. Keep one heel touching the floor and the other heel touching the wall. 4. Repeat with your other leg. 5. Do 2 to 4 times for each leg. Hip flexor stretch 1. Kneel on the floor with one knee bent and one leg behind you. Place your forward knee over your foot. Keep your other knee touching the floor. 2. Slowly push your hips forward until you feel a stretch in the upper thigh of your rear leg. 3. Hold the stretch for at least 15 to 30 seconds. Repeat with your other leg. 4. Do 2 to 4 times on each side. Wall sit 1. Stand with your back 10 to 12 inches away from a wall. 2. Lean into the wall until your back is flat against it. 3. Slowly slide down until your knees are slightly bent, pressing your lower back into the wall. 4. Hold for about 6 seconds, then slide back up the wall. 5. Repeat 8 to 12 times. Follow-up care is a johnson part of your treatment and safety. Be sure to make and go to all appointments, and call your doctor if you are having problems. It's also a good idea to know your test results and keep a list of the medicines you take. Where can you learn more? Log into your personal health record on https://[employer] and enter Z938 in the Education box to learn more about Low Back Pain: Exercises. Current as of: June 17, 2020 Content Version: 12.8 [employer]. Care instructions adapted under license by your healthcare professional. If you have questions about a medical condition or this instruction, always ask your healthcare professional. [employer] disclaims any warranty or liability for your use of this information. documented in this encounter [facility] 12-25-2020 Note HNO ID: [id number] Author: HERO Galloway Service: Radiology Author Type: Clinical Roll On Worker Type: Progress Notes Filed: 12/25/2020 7:19 AM Note Text: Radiology Service Progress Note PATIENT NAME: Aminata Cohen DATE OF SERVICE: December 25, 2020 TIME: 7:17 AM PATIENT IDENTITY VERIFICATION COMPLETED USING TWO (2) IDENTIFIERS: Name and Date of confirmed by patient verbally and Name and Date of confirmed by identification band. FALL SCREENING: Has the patient had 2 falls in the last year or 1 fall with injury or currently using an Ambulatory Assistive Device (Walker, Cane, Wheelchair, Crutches, etc.)? No PATIENT GENDER DATA: Female. status: : No status: NO. PATIENT RELEVANT IMPLANT DATA REVIEWED: Yes RADIOLOGY DEPARTMENT: MR; Exam(s) Completed: Spine: Lumbar spine PERIPHERAL IV DATA: Not applicable SIGNED BY: HERO Galloway December 25, 2020 7:17 AM [facility] 11-18-2020 History of Present illness Narrative Called patient and made her aware of the the note that Susan sent. Patient stated understanding. [facility] Progress Note Patient Name: Aminata Cohen Date of Service: : 1965 Impression: Aminata Cohen is a 55 y.o. year old female with stable, non-secreting pituitary tumor and scoliosis, lumbar instability, facet arthropathy, and spondylolisthesis. Plan: - As patient has had 4 scans over 6 years (2009, 2011, 2013, and 2015) revealing stable pituitary tumor, will follow symptomatically No repeat scans necessary unless patient becomes symptomatic Discussed concerning symptoms with patient who verbalized understanding - Recommend MRI lumbar spine without contrast due to the instability identified on her recent XR lumbar spine - Will plan for MRI if no significant relief of her low back pain with conservative measures - Follow-up upon completion of therapy - Nursing notes reviewed Susan Almaguer, MS, MPAP, [facility] Neuro[facility] Office: Chief Complaint: Consult (She states she is having low back pain, and it will run across the top of the hips and into both sides of her buttocks and down the back of the legs and will stop at the knee. She states she feels like her hips lock up and she has trouble sitting when that happens.) HPI: Aminata Cohen is a 55 y.o. year old female with acute on chronic low back pain with bilateral sciatica, who presents for initial evaluation. History is obtained from the patient and chart review. The patient reports that she has had 20+ years of mild back pain. Approximately 1 month ago, the patient sustained a fall from standing height at her job. The patient states that the pain is localized to the bilateral low back and radiates down the posterior aspect of the bilateral lower extremities, stopping at the knees. She denies weakness, numbness, or tingling. She also denies a pain induced weakness. She states that the pain feels like a catch on the left side. If she waits for a few seconds, she is then able to move. She admits to using heat and ice during severe exacerbations with some improvement in the symptoms. Pain seems to be worsened by standing in 1 [address] and attempting to roll over in bed. The pain is described as a constant pain that waxes and wanes in intensity. Pain also seems to be improved by soaking it in Epson salt bath and rubbing BenGay on the low back. She denies physical therapy in the recent past and admits to chiropractic management approximately 10 years ago. She denies bowel or bladder dysfunction. The patient also has a known pituitary tumor. She states that this was previously followed by Dr. Bradford in the past. She was undergoing regular MRIs. Per chart review, I am able to view MRIs from 2009, 2011, 2014, and 2016, and per my independent review on a computerized workstation, all of the MRIs reveal a stable pituitary tumor. Also per chart review, the patient has been evaluated by Dr. 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 The patient denies vision changes (blurry or double vision), hearing changes, headaches, numbness, tingling, weakness, and dizziness. She states that she has been evaluated recently by an gold assayer, who completed a dilated eye exam without concerns. Review of Systems: Review of Systems Constitutional: Negative for chills, fatigue and fever. HENT: Positive for dental problem. Negative for congestion, hearing loss, rhinorrhea and sore throat. Eyes: Negative for pain and visual disturbance. Respiratory: Negative for cough and shortness of breath. Cardiovascular: Negative for chest pain and leg swelling. Gastrointestinal: Negative for abdominal pain, constipation, diarrhea, nausea and vomiting. Endocrine: Negative. Genitourinary: Negative for decreased urine volume, dysuria, hematuria and urgency. Musculoskeletal: Positive for arthralgias and back pain. Negative for gait problem, neck pain and neck stiffness. Skin: Negative for rash and wound. Allergic/Immunologic: Negative. Neurological: Negative for dizziness, weakness, numbness and headaches. Hematological: Negative for adenopathy. Does not bruise/bleed easily. Psychiatric/Behavioral: Negative for dysphoric mood. The patient is not nervous/anxious. Physical Examination: PACU Vitals 11/18/20 1121 BP: 138/83 Pulse: (!) 100 Resp: 16 SpO2: 93% PainSc: 8 PainLoc: Back General: Healthy, well-appearing 55 y.o. female, in NAD HENT: Hearing grossly intact to voice Eyes: PERRLA, 4mm bilaterally; EOM intact Neuro: Awake, alert, speech fluent Neck: Supple, full lateral rotation; no midline cervical tenderness Chest: Chest rise symmetric, respirations non-labored Cardiac: No pedal edema, no posterior calf tenderness Back: - No midline thoracic spine tenderness; no midline lumbar spine tenderness; no paraspinal thoracic spine tenderness; no paraspinal lumbar spine tenderness - No right SI joint tenderness; positive for left SI joint tenderness Skin: Warm and dry MSK: - No clonus on right; no clonus on left - Patellar Tendon Reflexes: 2+ on right, 2+ on left Muscle Group Right Left Hip Flexion 5 5 Knee Extension 5 5 Knee Flexion 5 5 Dorsiflexion 5 5 Plantar Flexion 5 5 Sensation intact to light touch to bilateral lower extremities without areas of diminished sensation. Ambulates with shortened stride with slightly waddling gait. Radiologic/Laboratory Studies Reviewed: The following studies have been reviewed on a computerized device and my interpretation is as follows: MRI Brain - 2009, 2011, 2013, and 2016 Independent review of the brain imaging with particular focus on the pituitary gland reveals stable pituitary adenoma without significant growth. See full report from 2016 MRI brain below. Radiologic interpretation is as follows: The visualized paranasal sinuses, mastoid air cells and intraorbital contents are unremarkable. Normal vascular flow void is seen both in the anterior and posterior circulation as well as the dural venous sinuses. Brainstem and posterior fossa contents are unremarkable. Normal bone marrow signal characteristics are seen throughout the skull. Pituitary macroadenoma is not appreciably changed in configuration or size, seen as a homogeneously enhancing mass in the sella turcica, measuring 10 x 11 x 10 mm. Supratentorially, CSF spaces and cerebral sulci are within normal limits. No mass, hemorrhage or midline shift is seen. Confluent bilateral periatrial FLAIR sequence abnormalities appear stable when compared to previous exam as well as multifocal small bifrontal and biparietal subcortical and periventricular white matter FLAIR sequence abnormalities. There is no extra-axial fluid collection. Following gadolinium administration, no focus of abnormal enhancement is seen. IMPRESSION: 1. Unchanged pituitary macroadenoma. 2. Signal abnormalities described in the periventricular and subcortical white matter are typically seen as sequela from microangiopathic ischemic disease versus demyelinating/dysmyelinating processes. 3. Otherwise unremarkable MRI of the brain without and with gadolinium. XR Lumbar Spine - 11/18/2020 Independent review of the imaging reveals scoliotic deformity of the thoracolumbar spine. Additionally, degenerative disc disease is noted at the inferior lumbar spine. Facet arthropathy is noted diffusely throughout the spine. There is spondylolisthesis at L4-5, which appears to be slightly unstable in the flexion and extension views. Radiologic interpretation is as follows: Standing frontal, lateral, flexion and extension views and coned-down view of the lumbar spine were obtained. There is a rotatory levoconvex scoliosis of the lumbar spine measuring 13 degrees as measured from the superior endplate of L1 to the inferior endplate of L5. There is a 2.8 cm calcified fibroid within the pelvis. There is moderate-severe discogenic disease at the L4-5 level and mild discogenic disease at the L5-S1 level. There appears to be severe facet joint arthropathy at the L2-3 through L5-S1 level. On the neutral lateral view there is anterolisthesis of L4 on L5 of 1.3 cm. This increases to a measurement of 1.7 cm on the flexion view and decreases to a measurement of 1.2 cm on the extension view. There is also mild retrolisthesis of L2 on L3 of 2 mm which does not change on the flexion or extension views. There is no compression fracture. IMPRESSION: 1. There is radiographic evidence of dynamic instability at the L4-5 level with grade 2 anterolisthesis of L4 on L5 which is most likely secondary to severe facet joint arthropathy and there is moderate-severe discogenic disease at this level. These findings are likely a cause for spinal canal stenosis and/or foraminal narrowing and could be further evaluated with an MRI of the lumbar spine. 2. Severe multilevel facet joint arthropathy at the L2-3 through L5-S1 level. 3. There is a rotatory levoconvex scoliosis of the lumbar spine measuring 13 degrees. documented in this encounter [facility] note* Diagnosis Lumbar spine instability- Primary Chronic low back pain, unspecified back pain laterality, unspecified whether sciatica present Facet arthropathy, lumbar Pituitary macroadenoma (HCC) Benign neoplasm of pituitary gland and craniopharyngeal duct (pouch) [facility] Diagnosis Lumbar spine instability- Primary Facet arthropathy, lumbar Lumbar degenerative disc disease [facility]* Diagnosis Neck pain- Primary Cervicalgia Mid back pain Trigger point of neck DDD (degenerative disc disease), cervical Degeneration of cervical intervertebral disc DDD (degenerative disc disease), thoracic Degeneration of thoracic or thoracolumbar intervertebral disc Facet arthropathy, cervical Mid back pain Neck pain Cervicalgia [facility]* Diagnosis Rectal bleeding- Primary Hemorrhage of rectum and anus [facility] Diagnosis Rectal bleeding- Primary Hemorrhage of rectum and anus [facility] Diagnosis Bright red blood per rectum- Primary Hemorrhage of rectum and anus History of colonic polyps Personal history of colonic polyps Bright red blood per rectum Hemorrhage of rectum and anus History of colonic polyps Personal history of colonic polyps Bright red blood per rectum Hemorrhage of rectum and anus History of colonic polyps Personal history of colonic polyps documented in this encounter [facility] note* Diagnosis Systemic lupus erythematosus, unspecified SLE type, unspecified organ involvement status (HCC) Raynaud's phenomenon without gangrene documented in this encounter [facility] note* Diagnosis Chronic pain of right knee- Primary Obesity, Class I, BMI 30-34.9 Obesity, unspecified documented in this encounter [facility] note* Diagnosis Obesity, Class I, BMI 30-34.9- Primary Obesity, unspecified Screening for diabetes mellitus documented in this encounter [facility] note* Diagnosis Pituitary adenoma (HCC)- Primary Benign neoplasm of pituitary gland and craniopharyngeal duct (pouch) Dizziness Dizziness and giddiness documented in this encounter [facility] note* Diagnosis Pituitary adenoma (HCC)- Primary Benign neoplasm of pituitary gland and craniopharyngeal duct (pouch) documented in this encounter [facility] note* Diagnosis Pituitary macroadenoma (HCC)- Primary Benign neoplasm of pituitary gland and craniopharyngeal duct (pouch) Positive Romberg test DDD (degenerative disc disease), cervical Degeneration of cervical intervertebral disc documented in this encounter [facility] note* Diagnosis Pituitary macroadenoma (HCC)- Primary Benign neoplasm of pituitary gland and craniopharyngeal duct (pouch) documented in this encounter [facility] note* Diagnosis Pituitary macroadenoma (HCC)- Primary Benign neoplasm of pituitary gland and craniopharyngeal duct (pouch) Positive Romberg test DDD (degenerative disc disease), cervical Degeneration of cervical intervertebral disc documented in this encounter [facility] note* Diagnosis Pituitary macroadenoma (HCC)- Primary Benign neoplasm of pituitary gland and craniopharyngeal duct (pouch) Positive Romberg test DDD (degenerative disc disease), cervical Degeneration of cervical intervertebral disc Lumbar degenerative disc disease documented in this encounter [facility] note* Diagnosis Fatigue, unspecified type- Primary Pituitary adenoma (HCC) Benign neoplasm of pituitary gland and craniopharyngeal duct (pouch) documented in this encounter [facility] note* Diagnosis Pituitary adenoma (HCC)- Primary Benign neoplasm of pituitary gland and craniopharyngeal duct (pouch) documented in this encounter [facility] note* Diagnosis SHIVANI positive- Primary Other and unspecified nonspecific immunological findings documented in this encounter [facility] note* Diagnosis Encounter for screening mammogram for breast cancer documented in this encounter [facility] note* Diagnosis Mass of right breast, unspecified quadrant- Primary documented in this encounter [facility] note* Diagnosis Mass overlapping multiple quadrants of right breast- Primary documented in this encounter [facility] note* Diagnosis Systemic lupus erythematosus, unspecified SLE type, unspecified organ involvement status (HCC)- Primary Dry skin dermatitis Contact dermatitis and other eczema due to other specified agent Hypercholesterolemia Pure hypercholesterolemia Neutropenia, unspecified type (HCC) Class 1 obesity due to excess calories with body mass index (BMI) of 33.0 to 33.9 in adult, unspecified whether serious comorbidity present Dizziness Dizziness and giddiness documented in this encounter [facility] note* Diagnosis Pituitary adenoma (HCC)- Primary Benign neoplasm of pituitary gland and craniopharyngeal duct (pouch) documented in this encounter [facility] note* Diagnosis Pituitary macroadenoma (HCC)- Primary Benign neoplasm of pituitary gland and craniopharyngeal duct (pouch) Lupus (HCC) Systemic lupus erythematosus Vitamin D deficiency Fatigue, unspecified type documented in this encounter [facility] note* Diagnosis Systemic lupus erythematosus, unspecified SLE type, unspecified organ involvement status (HCC) documented in this encounter [facility] note* Diagnosis Lupus (HCC)- Primary Systemic lupus erythematosus Raynaud's disease without gangrene Sicca syndrome (HCC) Sicca syndrome Loud snoring Encounter for screening for other viral diseases Centromere antibody positive Left ankle swelling Effusion of ankle and foot joint Low vitamin D level documented in this encounter [facility] note* Diagnosis Raynaud's phenomenon without gangrene documented in this encounter [facility] note* Diagnosis Systemic lupus erythematosus, unspecified SLE type, unspecified organ involvement status (HCC) Raynaud's phenomenon without gangrene documented in this encounter [facility] note* Diagnosis Encounter for screening mammogram for breast cancer documented in this encounter [facility] note* Diagnosis Lower abdominal pain Abdominal pain, other specified site documented in this encounter [facility] note* Diagnosis Spondylolisthesis of lumbar region- Primary documented in this encounter [facility] note* Diagnosis Mass of right breast, unspecified quadrant- Primary documented in this encounter [facility] note* Diagnosis Lupus (HCC)- Primary Systemic lupus erythematosus Systemic sclerosis (HCC) Systemic sclerosis [facility]* Diagnosis Mass overlapping multiple quadrants of right breast- Primary [facility]* Diagnosis Centromere antibody positive- Primary Heart murmur Undiagnosed cardiac murmurs documented in this encounter [facility] for referral (narrative)* Consultation (Routine) - Authorized Specialty Diagnoses / Procedures Referred By Alba scott Referred To Contact General Surgery Diagnoses Rectal bleeding Rogelio Thomas MD [address] [place] [address] [facility] [address] [facility] Office Building, [address] [place] [address] Referral ID Status Reason Start Date Expiration Date Visits Requested Visits Authorized [id number] Authorized Specialty Services Required/Pat ient's Best Interest 11/11/2021 11/11/2022 1 1 [facility] for referral (narrative)* Diagnostic Procedure Only (Routine) - Closed Specialty Diagnoses / Procedures Referred By Alba scott Referred To Contact XR IMAGING Diagnoses Chronic pain of right knee Procedures XR KNEE GENERAL 4V AP BOTH/PA BOTH/LAT/MERC RIGHT RADIOLOGIC EXAM KNEE COMPLETE 4/MORE VIEWS Suzy Medina APRN.CNP [address] [place] [address] Xr Imaging Referral ID Status Reason Start Date Expiration Date V isits Requested Visits Authorized [id number] Closed Auto-Generate d Referral 01/07/2022 02/06/2023 [address] [facility] for referral (narrative)* Diagnostic Procedure Only (Routine) - Pending Review Specialty Diagnoses / Procedures Referred By Alba scott Referred To Contact BR IMAGING Diagnoses Encounter for screening mammogram for breast cancer Procedures AKOSUA SCREENING SCREENING MAMMOGRAPHY BI 2-VIEW BREAST INC CAD Rogelio Thomas MD [address] [place] [address] [facility] [address] [place] [address] Referral ID Status Reason Start Date Expiration Date Visits Requested Visits Authorized [id number] Pending Review Auto-Generat ed Referral 06/10/2022 07/10/2023 [address] [facility] for referral (narrative)* Consultation (Routine) - Authorized Specialty Diagnoses / Procedures Referred By Alba scott Referred To Contact General Surgery Diagnoses Mass of right breast, unspecified quadrant Lisette Ramos MD [address] [place] [address] [facility] [address] [facility] Medical Office Building, [address]th [place] [address] Referral ID Status Reason Start Date Expiration Date Visits Requested Visits Authorized [id number] Authorized Specialty Services Required/Pat ient's Best Interest 2 06/16/2023 1 1 [facility] for referral (narrative)* Diagnostic Procedure Only (Routine) - Pending Review Specialty Diagnoses / Procedures Referred By Alba scott Referred To Contact BR IMAGING Diagnoses Encounter for screening mammogram for breast cancer Procedures AKOSUA SCREENING SCREENING MAMMOGRAPHY BI 2-VIEW BREAST INC CAD Rogelio Thomas MD [address] [place] [address] [facility] [address] [place] [address] Referral ID Status Reason Start Date Expiration Date Visits Requested Visits Authorized [id number] Pending Review Auto-Generat ed Referral 3 06/10/2024 [address] [facility] for referral (narrative)* Diagnostic Procedure Only (Routine) - Closed Specialty Diagnoses / Procedures Referred By Alba t Referred To Contact US IMAGING Diagnoses Lower abdominal pain Procedures US ABDOMEN LTD US ABDOMINAL REAL TIME W/IMAGE LIMITED Shanae Avalos APRN.LATHE WINDER [address] [place] [address] [place] [address] Referral ID Status Reason Start Date Expiration Date V isits Requested Visits Authorized [id number] Closed Auto-Generate d Referral 12/17/2022 01/16/2024 [address] [facility] for referral (narrative)* Consultation (Routine) - Authorized Specialty Diagnoses / Procedures Referred By Contac t Referred To Contact General Surgery Diagnoses Mass of right breast, unspecified quadrant Lisette Ramos MD [address] [place] [address] [facility] [address] [facility] Office Building, [address] [place] [address] Referral ID Status Reason Start Date Expiration Date Visits Requested Visits Authorized [id number] Authorized Specialty Services Required/Pat ient's Best Interest 3 07/18/2024 1 1 [facility] for referral (narrative)* Outpatient Procedure (Routine) - Authorized Specialty Diagnoses / Procedures Referred By Contac t Referred To Contact [facility] Diagnoses Centromere antibody positive Heart murmur Procedures ECHO ECHO TTHRC R-T 2D W/WOM-MODE COMPL SPEC&COLR D Lisette Lane MD [address] [place] [address] [facility] [address] [place] [address] Referral ID Status Reason Start Date Expiration Date Visits Requested Visits Authorized [id number] Authorized Auto-Generat ed Referral 10/04/2023 10/03/2024 1 1 [facility] Assessments Diagnosis Pituitary 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) Dysuria Diagnosis History of lupus - Primary Personal history of endocrine, metabolic, and immunity disorders Painful breasts Mastodynia History of hypertension Personal history of other diseases of circulatory system Diagnosis Pituitary 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) Diagnosis Chronic low back pain, unspecified back pain laterality, unspecified whether sciatica present- Primary Summary Purpose Family History No Family History Records FoundNo Family History Records FoundNo Family History Records FoundNo Family History Records FoundNo Family History Records FoundNo Family History Records FoundNo Family History Records FoundNo Family History Records Found Advance Directives No Advanced Directives Records FoundDocuments on File Type Date Recorded Patient Lather Apprentice Expl anation Advance Directives and Living Will Documents on File Type Date Recorded Patient Lather Apprentice Expl anation Advance Directives and Living Will Documents on File Type Date Recorded Patient Lather Apprentice Expl anation Advance Directives and Livin g Will 11/18/2020 12:15 PM Documents on File Type Date Recorded Patient Lather Apprentice Expl anation Advance Directives and Livin g Will 11/18/2020 12:15 PM Documents on File Type Date Recorded Patient Lather Apprentice Expl anation Advance Directives and Livin g Will 04/03/2021 3:00 PM Documents on File Type Date Recorded Patient Lather Apprentice Expl anation Advance Directives and Livin g Will 04/03/2021 3:00 PM Reason for Referral Status Reason Specialty Diagnoses / Procedures Referred By Contact Referred To Contact Authorized Neurosurgery Diagnoses Chronic low back pain, unspecified back pain laterality, unspecified whether sciatica present Rogelio Thomas MD [address] [place] [address] [facility] [address] [place] [phone] Status Reason Specialty Diagnoses / Procedures Referred By Contact Referred To Contact New Request Radiology Diagnoses Chronic low back pain, unspecified back pain laterality, unspecified whether sciatica present Lumbar spine instability Facet arthropathy, lumbar Procedures MR Lumbar Spine Without Contrast Susan Almaguer PA-C [address] La Garza [address] [address] Status Reason Specialty Diagnoses / Procedures Referred By Contact Referred To Contact Authorized Patient Preference Physical Therapy Diagnoses Chronic low back pain, unspecified back pain laterality, unspecified whether sciatica present Susan Almaguer PA-C [address] [facility] Vanesa [address] [address] Status Reason Specialty Diagnoses / Procedures Referred By Contact Referred To Contact Authorized Rehabilitation Diagnoses Lumbar spine instability Facet arthropathy, lumbar Susan Almaguer PA-C [address] Vanes[address] [place] [id number] Specialty Diagnoses / Procedures Referred By Contac t Referred To Contact General Surgery Diagnoses Rectal bleeding Procedures CONSULT TO GENERAL SURGERY OFFICE/OUTPATIENT [facility] 60-74 MINUTES Shanae Avalos APRN.[facility] [address] [place] [address] Referral ID Status Reason Start Date Expiration Date Visits Requested Visits Authorized [id number] Authorized PCP Requested Referral 10/20/2021 10/20/2022 1 1 Specialty Diagnoses / Procedures Referred By Contac t Referred To Contact Endocrinology Diagnoses Pituitary adenoma (HCC) Dizziness Procedures CONSULT TO ENDOCRINOLOGY Rogelio Thomas MD [address] [place] [address] Marilee Euceda [address] [address] Referral ID Status Reason Start Date Expiration Date Visits Requested Visits Authorized [id number] Ref Not Required PCP Requested Referral 01/22/2022 01/22/2023 1 1 Specialty Diagnoses / Procedures Referred By Contac t Referred To Contact Endocrinology Diagnoses Pituitary adenoma (HCC) Rogelio Thomas MD [address] [place] [address] Marilee Euceda MD [address] [place] [address] Referral ID Status Reason Start Date Expiration Date Visits Requested Visits Authorized [id number] Authorized Specialty Services Required/Pat ient's Best Interest 01/23/2022 01/23/2023 1 1 Specialty Diagnoses / Procedures Referred By Contac t Referred To Contact Radiology Diagnoses Pituitary macroadenoma (HCC) Procedures MR Pituitary With And Without Contrast Susan Almaguer PA-C [address] [place] [phone] Referral ID Status Reason Start Date Expiration Date V isits Requested Visits Authorized [id number] New Request 01/22/2022 01/22/2023 1 1 Specialty Diagnoses / Procedures Referred By Contac t Referred To Contact Radiology Diagnoses Positive Romberg test Procedures MR Cervical Spine Without Contrast Susan Almaguer PA-C [address]anes[address] [place] [id number] Referral ID Status Reason Start Date Expiration Date V isits Requested Visits Authorized [id number] New Request 01/22/2022 01/22/2023 1 1 Referral ID Status Reason Start Date Expiration Date V isits Requested Visits Authorized [id number] Authorized 01/22/2022 01/22/2023 1 1 Referral ID Status Reason Start Date Expiration Date V isits Requested Visits Authorized [id number] Authorized 02/11/2022 03/28/2022 1 1 Specialty Diagnoses / Procedures Referred By Contac t Referred To Contact Radiology Diagnoses Lupus (HCC) Centromere antibody positive Procedures CT Chest High Resolution Only Gail Herbert MD [address] [facility] [place] [phone] Referral ID Status Reason Start Date Expiration Date V isits Requested Visits Authorized [id number] New Request 11/23/2022 11/23/2023 1 1 Specialty Diagnoses / Procedures Referred By Contac t Referred To Contact Cardiology Diagnoses Lupus (HCC) Centromere antibody positive Procedures Echocardiogram complete Gail Herbert MD [address] [place] [address] Referral ID Status Reason Start Date Expiration Date V isits Requested Visits Authorized [id number] New Request 11/23/2022 11/23/2023 1 1 Specialty Diagnoses / Procedures Referred By Contac t Referred To Contact Pulmonary Disease Diagnoses Lupus (HCC) Systemic sclerosis (HCC) Jamir Ying DO [address] [place] [address] MD [address] [place] [address] Referral ID Status Reason Start Date Expiration Date V isits Requested Visits Authorized [id number] Closed Specialty Services Required/Melba ent's Best Interest 08/12/2023 08/11/2024 1 1 Additional Source Comments INFORMATION SOURCE (unrecogn ized section and content) DATE CREATED AUTHOR AUTHOR'S ORGANIZ ATION 04/02/2018 [facility] DATE CREATED AUTHOR AUTHOR'S ORGANIZ ATION 12/28/2020 [facility] DATE CREATED AUTHOR AUTHOR'S ORGANIZ ATION 07/11/2023 [facility] DATE CREATED AUTHOR AUTHOR'S ORGANIZ ATION 09/03/[address] [facility] DATE CREATED AUTHOR AUTHOR'S ORGANIZ ATION 09/29/2023 [facility] DATE CREATED AUTHOR AUTHOR'S ORGANIZ ATION 10/05/2023 [facility] DATE CREATED AUTHOR AUTHOR'S ORGANIZ ATION 10/11/2023 [facility] Reason for Visit (unrecogniz ed section and content) Specialty Diagnoses / Procedures Referred By Contac t Referred To Contact General Surgery Diagnoses Mass of right breast, unspecified quadrant Lisette Ramos MD [address] [place] [address] [facility] [address] [facility] Medical Office Building, [address] [place] [address] Referral ID Status Reason Start Date Expiration Date V isits Requested Visits Authorized [id number] Closed Specialty Services Required/Melba ent's Best Interest 07/19/2023 07/18/2024 1 1 Reason Comments Consult She states she is whittaker ving low back pain, and it will run across the top of the hips and into both sides of her buttocks and down the back of the legs and will stop at the knee. She states she feels like her hips lock up and she has trouble sitting when that happens. Status Reason Specialty Diagnoses / Procedures Referred By Contact Referred To Contact Closed Neurosurgery Diagnoses Chronic low back pain, unspecified back pain laterality, unspecified whether sciatica present Rogelio Thomas MD [address] [place] [address] [facility] [address] [place] [address] Reason Comments Follow-up Pt brought disk of Avril CHO. Pt states things have been painful since she was last in. Pain starts in mid-low back and radiates down both legs. Denies any numbness/tingling in feet. Pt states at night she has to sleep in certain postions to keep the pain away. Pain is worst while walking, sitting help eases it Reason Comments Neck Pain Patient describes he r neck pain as a very tight and ran down the center of her in between her shoulders. Reason Comments Referral Request Reason Comments Consult Rectal bleeding( abo ut 2 months) Specialty Diagnoses / Procedures Referred By Alba t Referred To Contact General Surgery Diagnoses Rectal bleeding Rogelio Thomas MD [address] [place] [address] [facility] [address] Office Building, [address] [place] [address] Referral ID Status Reason Start Date Expiration Date V isits Requested Visits Authorized [id number] Closed Specialty Services Required/Melba ent's Best Interest 11/11/2021 11/11/2022 1 1 Reason Onset Date Comments Refill Request 12/08/2021 see Rx notes Reason Comments Right Knee Pain Reason Comments Results Reason Comments Orders Reason Comments Endocrinology Referral Request Reason Comments Pituitary Problem Patient presents tod ay with dizziness and pitutary tumor. Patient states she is unbalanced. Patient states she does have some blurry vision. Patient states she has no other symptoms or concerns at this time. Patient state when she had recent X-rays from our office, she never got the results, she would like to discuss the results. Reason Comments Pituitary Problem Specialty Diagnoses / Procedures Referred By Alba t Referred To Contact Endocrinology Diagnoses Pituitary adenoma (HCC) Rogelio Thomas MD [address] [place] [address] Marilee Euceda MD [address] [place] [address] Referral ID Status Reason Start Date Expiration Date V isits Requested Visits Authorized [id number] Closed Specialty Services Required/Melba ent's Best Interest 01/23/2022 01/23/2023 1 1 Reason Comments Consult Right breast lump Referral ID Status Reason Start Date Expiration Date V isits Requested Visits Authorized [id number] Closed Specialty Services Required/Melba ent's Best Interest 06/16/2022 06/16/2023 1 1 Reason Comments Patient Question Reason Onset Date Comments Refill Request 11/10/2022 Specialty Diagnoses / Procedures Referred By Alba t Referred To Contact Rheumatology Diagnoses Lupus (HCC) Rogelio Thomas MD [address] [place] [address] Gail Herbert MD [address] [place] [address] Referral ID Status Reason Start Date Expiration Date Visits Re quested Visits Authorized [id number] Closed 09/04/2022 09/04/2023 1 1 Reason Onset Date Comments Refill Request 03/24/2023 Reason Onset Date Comments Refill Request 05/10/2023 Reason Comments Radiology US Specialty Diagnoses / Procedures Referred By Clarisaac t Referred To Contact US IMAGING Diagnoses Lower abdominal pain Procedures US ABDOMEN LTD US ABDOMINAL REAL TIME W/IMAGE LIMITED Shanae Avalos, HEAD OF RESEARCH & INSIGHTS.LATHE WINDER [address] [place] [id number] Us Imaging [facility] Referral ID Status Reason Start Date Expiration Date V isits Requested Visits Authorized [id number] Closed Auto-Generate d Referral 12/17/2022 01/16/2024 1 1 Reason Onset Date Comments Refill Request 07/01/2023 Reason Comments New Patient Lumbar pain Reason Comments Release Of Medical Records Reason Comments Shortness of Breath Care Teams (unrecognized sec tion and content) Elder Assistant Relationship Specialty Start Date End Date Rogelio Thomas MD [address] [place] [address] [phone] PCP - General Internal Medicine 06/19/13 Martha Haas MD Primary Staff Physician Cardiology 10/18/18 Susan Almaguer [address] [place] [id number] Referring 12/13/20 Elder Assistant Relationship Specialty Start Date End Date Rogelio Thomas MD [address] [place] [address] 69807 PCP - General Internal Medicine 12/09/15 Subit, Alexandre Lorenz MD [address] [place], [place] [id number] Referring Physician Obstetrics/Gynecology 06/11/17 Elder Assistant Relationship Specialty Start Date End Date Rogelio Thomas MD [address] [place] [address] [id number] PCP - General Internal Medicine 12/09/15 Alexandre Miles MD [address] [place] [address] Referring Physician Obstetrics/Gynecology 06/11/17 Elder Assistant Relationship Specialty Start Date End Date Rogelio Thomas MD [address] [place] [id number] PCP - General Internal Medicine 06/19/13 Martha Haas MD Primary Staff Physician Cardiology 10/18/18 Susan Almaguer [address] [place] [address] Referring 12/13/20 Elder Assistant Relationship Specialty Start Date End Date Rogelio Thomas MD [address] [place] [address] PCP - General Internal Medicine 06/19/13 Martha Haas MD Primary Staff Physician Cardiology 10/18/18 Susan Almaguer [address] [place] [address] Referring 12/13/20 Elder Assistant Relationship Specialty Start Date End Date Rogelio Thomas MD [address] [place] [address] PCP - General Internal Medicine 06/19/13 Martha Haas MD Primary Staff Physician Cardiology 10/18/18 Susan Almaguer [address] [place] [address] Referring 12/13/20 Elder Assistant Relationship Specialty Start Date End Date Rogelio Thomas MD [address] [place] [address] PCP - General Internal Medicine 06/19/13 Martha Haas MD Primary Staff Physician Cardiology 10/18/18 Susan Almaguer [address] [place] [address] Referring 12/13/20 Elder Assistant Relationship Specialty Start Date End Date Rogelio Thomas MD [address] [place] [address] PCP - General Internal Medicine 06/19/13 Martha Haas MD Primary Staff Physician Cardiology 10/18/18 Susan Almaguer [facility]his[place]k [place], [place] [id number] Referring 12/13/20 Elder Assistant Relationship Specialty Start Date End Date Rogelio Thomas MD [address] [place] [address] 06859 PCP - General Internal Medicine 12/09/15 Subit, Alxeandre Lorenz MD [address] [place] [address] Referring Physician Obstetrics/Gynecology 06/11/17 Elder Assistant Relationship Specialty Start Date End Date Rogeilo Thomas MD [address] [place] [address] 10572 PCP - General Internal Medicine 12/09/15 Alexandre Miles MD [address] [place] [address] Referring Physician Obstetrics/Gynecology 06/11/17 Elder Assistant Relationship Specialty Start Date End Date Rogelio Thomas MD [address] [place] [address] 9[address]14 PCP - General Internal Medicine 12/09/15 ElysiaitAlexandre MD [address] [place] [address] Referring Physician Obstetrics/Gynecology 06/11/17 Elder Assistant Relationship Specialty Start Date End Date Rogelio Thomas MD [address] [place] [address] 60197 PCP - General Internal Medicine 12/09/15 Alexandre Miles MD [address] [place] [address] Referring Physician Obstetrics/Gynecology 06/11/17 Elder Assistant Relationship Specialty Start Date End Date Rogelio Thomas MD [address] [place] [address] 17107 PCP - General Internal Medicine 12/09/15 Alexandre Miles MD [address] [place] [address] Referring Physician Obstetrics/Gynecology 06/11/17 Elder Assistant Relationship Specialty Start Date End Date Rogelio Thomas MD [address] [place] [address] 90550 PCP - General Internal Medicine 12/09/15 [facility], Alexandre Lorenz MD [address] [place] [address] Referring Physician Obstetrics/Gynecology 06/11/17 Elder Assistant Relationship Specialty Start Date End Date Rogelio Thomas MD [address] [place] [address] 04902 PCP - General Internal Medicine 06/19/13 Martha Haas MD Primary Staff Physician Cardiology 10/18/18 Susan Almaguer [address] [place] [address] Referring 12/13/20 Elder Assistant Relationship Specialty Start Date End Date Rogelio Thomas MD [address] [place] [address] [id number] PCP - General Internal Medicine 06/19/13 Martha Haas MD Primary Staff Physician Cardiology 10/18/18 Susan Almaguer [address] [place] [address] Referring 12/13/20 Elder Assistant Relationship Specialty Start Date End Date Rogelio Thomas MD [address] [place] [address] 85668 PCP - General Internal Medicine 06/19/13 Martha Haas MD Primary Staff Physician Cardiology 10/18/18 Susan Almaguer [address] [place] [address] Referring 12/13/20 Elder Assistant Relationship Specialty Start Date End Date Rogelio Thomas MD [address] [place] [address] [id number] PCP - General Internal Medicine 12/09/15 SubitAlexandre MD [address] [place] [address] Referring Physician Obstetrics/Gynecology 06/11/17 Lisette Ramos MD [address] [place] [address] Referring Physician Obstetrics/Gynecology 06/16/22 Elder Assistant Relationship Specialty Start Date End Date Rogelio Thomas MD [address] [place] [address] 92971 PCP - General Internal Medicine 12/09/15 Alexandre Miles MD [address] [place] [address] Referring Physician Obstetrics/Gynecology 06/11/17 Lisette Ramos MD [address] [place] [address] Referring Physician Obstetrics/Gynecology 06/16/22 Elder Assistant Relationship Specialty Start Date End Date Rogelio Thomas MD [address] [place] [address] 08203 PCP - General Internal Medicine 06/19/13 Martha Haas MD [address] [place] [address] 07006 Primary Staff Physician Cardiology 10/18/18 Susan Almaguer [address] [place] [address] Referring 12/13/20 Elder Assistant Relationship Specialty Start Date End Date Rogelio Thomas MD [address] [place] [address] 11342 PCP - General Internal Medicine 06/19/13 Martha Haas MD [address] [place] [address] 8[address] Primary Staff Physician Cardiology 10/18/18 Susan Almaguer [address] [place] [address] Referring 12/13/20 Elder Assistant Relationship Specialty Start Date End Date Rogelio Thomas MD [address] [place] [address] 68683 PCP - General Internal Medicine 12/09/15 Alexandre Miles MD [address] [place] [address] Referring Physician Obstetrics/Gynecology 06/11/17 Lisette Ramos MD [address] [place] [address] Referring Physician Obstetrics/Gynecology 06/16/22 Elder Assistant Relationship Specialty Start Date End Date Rogelio Thomas MD [address] [place] [address] 0[address]22 PCP - General Internal Medicine 12/09/15 Subit, Alexandre Lorenz MD [address] [place] [address] Referring Physician Obstetrics/Gynecology 06/11/17 Lisette Ramos MD [address] [place] [address] Referring Physician Obstetrics/Gynecology 06/16/22 Elder Assistant Relationship Specialty Start Date End Date Rogelio Thomas MD [address] [place] [address] PCP - General Internal Medicine 06/19/13 Martha Haas MD [facility] [place] [address] Primary Staff Physician Cardiology 10/18/18 Susan Almaguer [address] [place] [address] Referring 12/13/20 Elder Assistant Relationship Specialty Start Date End Date Rogelio Thomas MD [address] [place] [address] PCP - General Internal Medicine 06/19/13 Martha Haas MD [address] [place] [address] 15233 Primary Staff Physician Cardiology 10/18/18 Susan Almaguer [address] [place] [address] Referring 12/13/20 Elder Assistant Relationship Specialty Start Date End Date Rogelio Thomas MD [address] [place] [address] PCP - General Internal Medicine 12/09/15 Elysiait, Alexandre Lorenz MD [address] [place] [address] Referring Physician Obstetrics/Gynecology 06/11/17 Lisette [place] [address] [place] [address] Referring Physician Obstetrics/Gynecology 06/16/22 Elder Assistant Relationship Specialty Start Date End Date Rogelio Thomas MD [address] [place] [address] PCP - General Internal Medicine 06/19/13 Martha Haas MD [address] [place] [address] Primary Staff Physician Cardiology 10/18/18 Susan Almaguer [address] [place] [address] Referring 12/13/20 Elder Assistant Relationship Specialty Start Date End Date Rogelio Thomas MD [address] [place] [address] PCP - General Internal Medicine 06/19/13 Martha Haas MD [address] [place] [address] Primary Staff Physician Cardiology 10/18/18 Susan Almaguer PA-C [address] [place] [address] Referring 12/13/20 Elder Assistant Relationship Specialty Start Date End Date Rogelio Thomas MD [address] [place] [address] PCP - General Internal Medicine 06/19/13 Martha Haas MD [address] [place] [address] Primary Staff Physician Cardiology 10/18/18 Susan Almaguer PA-C [address] [place] [address] Referring 12/13/20 Elder Assistant Relationship Specialty Start Date End Date Rogelio Thomas MD [address] [place] [address] PCP - General Internal Medicine 06/19/13 Martha Haas MD [address] [place] [address] Primary Staff Physician Cardiology 10/18/18 Susan Almaguer PA-C [address] [place] [address] Referring 12/13/20 Elder Assistant Relationship Specialty Start Date End Date Rogelio Thomas MD [address] [place] [address] PCP - General Internal Medicine 06/19/13 Martha Haas MD [address] [place] [address] Primary Staff Physician Cardiology 10/18/18 Susan Almaguer PA-C [address] [place] [address] Referring 12/13/20 Elder Assistant Relationship Specialty Start Date End Date Rogelio Thomas MD [address] [place] [address] PCP - General Internal Medicine 06/19/13 Martha Haas MD [address] [place] [address] Primary Staff Physician Cardiology 10/18/18 Susan Almaguer PA-C [address] [facility] [place] [address] Referring 12/13/20 Elder Assistant Relationship Specialty Start Date End Date Jack Velásquez MD [address] [facility] [address] [place] [address] PCP - General Internal Medicine 07/08/23 Elder Assistant Relationship Specialty Start Date End Date Rogelio Thomas MD [address] [place] [address] 41784 PCP - General Internal Medicine 12/09/15 SubitAlexandre MD [address] [place] [address] Referring Physician Obstetrics/Gynecology 06/11/17 Lisette Ramos MD [address] [place] [address] Referring Physician Obstetrics/Gynecology 07/19/23 Elder Assistant Relationship Specialty Start Date End Date Rogelio Thomas MD [address] [place] [address] 16442 PCP - General Internal Medicine 12/09/15 Alexandre Miles MD [address] [place] [address] Referring Physician Obstetrics/Gynecology 06/11/17 Lisette Ramos MD [address] [place] [address] Referring Physician Obstetrics/Gynecology 07/19/23 Elder Assistant Relationship Specialty Start Date End Date Rogelio Thomas MD [address] [place] [address] PCP - General Internal Medicine 12/09/15 Alexandre Miles MD [address] [place] [address] Referring Physician Obstetrics/Gynecology 06/11/17 Lisette Ramos MD [address] [place] [address] Referring Physician Obstetrics/Gynecology 07/19/23 Elder Assistant Relationship Specialty Start Date End Date Rogelio Thomas MD [address] [place] [address] 29227 PCP - General Internal Medicine 06/19/13 [place] [address] [place] [address] Primary Staff Physician Cardiology 10/18/18 Susan Almaguer PA-C [address] [place] [address] Referring 12/13/20 Elder Assistant Relationship Specialty Start Date End Date Rogelio Thomas MD [address] [place], [place] 4036[address] PCP - General Internal Medicine 06/19/13 Martha Haas MD [address] [place], [place] [address]15[address] Primary Staff Physician Cardiology 10/18/18 Susan Almaguer PA-C [address] [place] [address] Referring 12/13/20 Source Comments (unrecognize d section and content) In the event this informatio n is protected by the Federal Confidentiality of Alcohol and Drug Abuse Patient Records regulations: The Federal rules restrict any use of the information to criminally investigate or prosecute any alcohol or drug abuse patient.[facility] the event this information is protected by the Federal Confidentiality of Alcohol and Drug Abuse Patient Records regulations: The Federal rules restrict any use of the information to criminally investigate or prosecute any alcohol or drug abuse patient.[facility] the event this information is protected by the Federal Confidentiality of Alcohol and Drug Abuse Patient Records regulations: The Federal rules restrict any use of the information to criminally investigate or prosecute any alcohol or drug abuse patient.[facility] the event this information is protected by the Federal Confidentiality of Alcohol and Drug Abuse Patient Records regulations: The Federal rules restrict any use of the information to criminally investigate or prosecute any alcohol or drug abuse patient.[facility] the event this information is protected by the Federal Confidentiality of Alcohol and Drug Abuse Patient Records regulations: The Federal rules restrict any use of the information to criminally investigate or prosecute any alcohol or drug abuse patient.[facility] the event this information is protected by the Federal Confidentiality of Alcohol and Drug Abuse Patient Records regulations: The Federal rules restrict any use of the information to criminally investigate or prosecute any alcohol or drug abuse patient.[facility] the event this information is protected by the Federal Confidentiality of Alcohol and Drug Abuse Patient Records regulations: The Federal rules restrict any use of the information to criminally investigate or prosecute any alcohol or drug abuse patient.[facility] the event this information is protected by the Federal Confidentiality of Alcohol and Drug Abuse Patient Records regulations: The Federal rules restrict any use of the information to criminally investigate or prosecute any alcohol or drug abuse patient.[facility] the event this information is protected by the Federal Confidentiality of Alcohol and Drug Abuse Patient Records regulations: The Federal rules restrict any use of the information to criminally investigate or prosecute any alcohol or drug abuse patient.[facility] the event this information is protected by the Federal Confidentiality of Alcohol and Drug Abuse Patient Records regulations: The Federal rules restrict any use of the information to criminally investigate or prosecute any alcohol or drug abuse patient.[facility] the event this information is protected by the Federal Confidentiality of Alcohol and Drug Abuse Patient Records regulations: The Federal rules restrict any use of the information to criminally investigate or prosecute any alcohol or drug abuse patient.[facility] the event this information is protected by the Federal Confidentiality of Alcohol and Drug Abuse Patient Records regulations: The Federal rules restrict any use of the information to criminally investigate or prosecute any alcohol or drug abuse patient.[facility] the event this information is protected by the Federal Confidentiality of Alcohol and Drug Abuse Patient Records regulations: The Federal rules restrict any use of the information to criminally investigate or prosecute any alcohol or drug abuse patient.[facility] the event this information is protected by the Federal Confidentiality of Alcohol and Drug Abuse Patient Records regulations: The Federal rules restrict any use of the information to criminally investigate or prosecute any alcohol or drug abuse patient.[facility] the event this information is protected by the Federal Confidentiality of Alcohol and Drug Abuse Patient Records regulations: The Federal rules restrict any use of the information to criminally investigate or prosecute any alcohol or drug abuse patient.[facility] the event this information is protected by the Federal Confidentiality of Alcohol and Drug Abuse Patient Records regulations: The Federal rules restrict any use of the information to criminally investigate or prosecute any alcohol or drug abuse patient.[facility] HospitalIn the event this information is protected by the Federal Confidentiality of Alcohol and Drug Abuse Patient Records regulations: The Federal rules restrict any use of the information to criminally investigate or prosecute any alcohol or drug abuse patient.[facility] HospitalIn the event this information is protected by the Federal Confidentiality of Alcohol and Drug Abuse Patient Records regulations: The Federal rules restrict any use of the information to criminally investigate or prosecute any alcohol or drug abuse patient.[facility] HospitalIn the event this information is protected by the Federal Confidentiality of Alcohol and Drug Abuse Patient Records regulations: The Federal rules restrict any use of the information to criminally investigate or prosecute any alcohol or drug abuse patient.[facility]In the event this information is protected by the Federal Confidentiality of Alcohol and Drug Abuse Patient Records regulations: The Federal rules restrict any use of the information to criminally investigate or prosecute any alcohol or drug abuse patient.[facility] HospitalIn the event this information is protected by the Federal Confidentiality of Alcohol and Drug Abuse Patient Records regulations: The Federal rules restrict any use of the information to criminally investigate or prosecute any alcohol or drug abuse patient.[facility] FOR RECORDS PERTAINING TO PATIENTS WHO ARE OR HAVE BEEN ENROLLED IN A CHEMICAL DEPENDENCY/SUBSTANCEABUSE PROGRAM, SOME INFORMATION MAY BE OMITTED. This clinical summary was aggregated from multiple sources. Caution should be exercised in using it in the provision of clinical care. This summary normalizes information from multiple sources, and as a consequence, information in this document may materially change the coding, format and clinical context of patient data. In addition, data may be omitted in some cases. CLINICAL DECISIONS SHOULD BE BASED ON THE PRIMARY CLINICAL RECORDS. [facility] [employer] [facility]. provides no warranty or guarantee of the accuracy or completeness of information in this document.
== END | disposition home or self-care (01) ==
PROVIDERS: PCP Internal Medicine
DX: R80.9 Proteinuria, unspecified (principal)
CPT/HCPCS: 76770

== ENCOUNTER → 2023-10-20 | Outpatient (CLI) | payer OTHER, SELFPAY ==
[2023-10-20 16:55] LABS: Anion Gap 5 (5-15); BUN 11 mg/dL (7-18); BUN/Creat Ratio 13.3 RATIO (10-20); Calcium,Total 9.3 mg/dL (8.5-10.1); Chloride 107 mmol/L (98-107); Creatinine, Serum 0.82 mg/dL (0.55-1.02); EST Glomerular Filtration Rate 76 mL/min (>60); Est Glom Filt Rate - Afr Amer 91 mL/min (>60); Glucose 82 mg/dL (74-106); Potassium 3.8 mmol/L (3.5-5.1); Sodium Level 140 mmol/L (136-145)
== END | disposition home or self-care (01) ==
LOC: LAB 15:47
PROVIDERS: PCP Internal Medicine
DX: N18.2 Chronic kidney disease, stage 2 (mild) (principal)
CPT/HCPCS: 36415; 80048